=== PATIENT | male | born 1965 | race Hispanic/Latino ===

== ENCOUNTER → 2017-12-20 | Outpatient (CLI) | payer OTHER ==
[~2017-12-20] MED LIST: APIX5TAB PO; ASPI-1005 PO; ATOR40TA69 PO; FURO40TA7 PO; LOSA50TA2 PO; METO50 PO; POTA-9 PO; SPIR25TA PO
== END ==
LOC: OIH 14:16
PROVIDERS: ATTEND Internal Medicine
DX: I50.9 Heart failure, unspecified (principal)
CPT/HCPCS: 71046

== ENCOUNTER 2018-08-06 14:45 | Inpatient (IN) | payer OTHER ==
[~2018-08-06] VITALS: Ht 167.6 cm; Wt 108.9 kg
[2018-08-06 15:17] LABS: BASOPHILS % (AUTO) 1.2 % (0.0-5.0); EOSINOPHILS % (AUTO) 0.2 % (0.0-8.0); HEMATOCRIT 41.7 % (42-54); MEAN CORPUSCULAR HEMOGLOBIN 32.3 pg (27.0-33.0); MEAN CORPUSCULAR HGB CONC 34.3 g/dL (32.0-36.0); MEAN CORPUSCULAR VOLUME 94.2 fL (79-99); MONOCYTES % (AUTO) 8.6 % (3.0-13.0); NUCLEATED RED BLOOD CELLS 0.1 % (0.0-0.19); PLATELET COUNT (AUTO) 199 K/uL (130-400); RED BLOOD CELL COUNT(AUTO) 4.42 MIL/uL (4.50-6.20); RED CELL DISTRIBUTION WIDTH 14.7 % (11.0-15.5); WHITE BLOOD COUNT (AUTO) 9.3 K/uL (4.8-10.8)
[2018-08-06 15:30] LABS: CREATININE 1.3 mg/dL (0.5-1.5)
[2018-08-06 15:31] LABS: INR 1.24 (0.85-1.15); PARTIAL THROMBOPLASTIN TIME 23.5 SEC (26.3-35.5)
[2018-08-06 15:35] LABS: ALBUMIN 3.3 g/dL (3.5-5.0); BILIRUBIN,TOTAL 2.6 mg/dL (0.2-1.0); TOTAL PROTEIN, SERUM 8.1 g/dL (6.0-8.3)
[2018-08-06 15:39] LABS: B-TYPE NATRIURETIC PEPTIDE 1050 pg/mL (0-100)
[2018-08-06] MEDS ORDERED: ASPIRIN 325 MG TABLET ONE (16:14)
[2018-08-06] MEDS ORDERED: NITROGLYCERIN 1GM/1 INCH PACKET TD ONE (16:15)
[2018-08-06 16:17] LABS: APPEARANCE,URINE Cloudy (CLEAR); BILIRUBIN,URINE Small (NEGATIVE); COLOR,URINE Dark Yellow (YELLOW); GLUCOSE, URINE (UA) Negative (NEGATIVE); KETONES,URINE Negative (NEGATIVE); LEUKOCYTE ESTERASE ,URINE Trace (NEGATIVE); NITRATE,URINE Positive (NEGATIVE); OCCULT BLOOD,URINE Small (NEGATIVE); PROTEIN,URINE >=1000 (NEGATIVE)
[2018-08-06 16:23] LABS: BACTERIA,URINE Few /HPF (None Seen)
[2018-08-06 16:24] LABS: AMPHET/METH SCREEN,URINE NEGATIVE (NEGATIVE); BARBITURATE SCREEN, URINE NEGATIVE (NEGATIVE); BENZODIAZEPINES SCREEN,URINE NEGATIVE (NEGATIVE); CANNABINOID SCREEN,URINE NEGATIVE (NEGATIVE); COCAINE SCREEN,URINE NEGATIVE (NEGATIVE); HYALINE CASTS, URINE 26-50 /LPF (0-1 /LPF); OPIATE SCREEN,URINE NEGATIVE (NEGATIVE); PHENCYCLIDINE SCREEN,URINE NEGATIVE (NEGATIVE)
[2018-08-06] MEDS ORDERED: FUROSEMIDE 10 MG/ML 2ML VIAL ONE (16:37)
[2018-08-06] MEDS ORDERED: ACETAMINOPHEN 325 MG TAB PO PRN (17:00)
[2018-08-06] MEDS ORDERED: PHARMACY COMMUNICATION MISC SCH (17:00)
[2018-08-06] MEDS ORDERED: ONDANSETRON HCL 4 MG/2 ML VIAL IV PRN (17:00)
[2018-08-06] MEDS ORDERED: LEVOFLOXACIN 500 MG/D5W 100 ML 100 ML ONE (17:21)
[2018-08-06 17:50] LABS: HEMOGLOBIN A1C 5.9 % (4.0-6.0)
[2018-08-06] MEDS ORDERED: BUMETANIDE 0.25 MG/ML 10 ML 40 ML IV SCH (18:00)
[2018-08-06 18:01] LABS: TROPONIN I 0.11 ng/mL (0.00-0.06)
[2018-08-06 20:50] VITALS: BP 160/109
[2018-08-06] MEDS ORDERED: NITR0.4T50 SL (22:02)
[2018-08-06] MEDS ORDERED: ERGO400T7 PO (22:02)
[2018-08-06] MEDS ORDERED: NIFE60TA81 PO (22:02)
[2018-08-06] MEDS ORDERED: ESCI20TA36 PO (22:02)
[2018-08-06] MEDS ORDERED: PAMA50TA PO (22:03)
[2018-08-06 22:50] VITALS: BP 160/109
[2018-08-06 23:00] VITALS: BP 151/99
[2018-08-07] VITALS (7 sets, daily range): BP systolic 118–162; BP diastolic 60–116
[2018-08-07] MEDS: SPIRONOLACTONE 25 MG TAB PO SCH ×3 (00:16→22:23)
[2018-08-07] MEDS: METOPROLOL TARTRATE 50 MG TAB PO SCH ×2 (00:16→08:18)
[2018-08-07] MEDS: APIXABAN 5 MG TABLET PO SCH ×2 (00:17→08:18)
[2018-08-07] MEDS: POTASSIUM CHLORIDE 10 MEQ/TAB.SA PO SCH ×3 (00:17→22:24)
[2018-08-07 01:31] LABS: TROPONIN I 0.1 ng/mL (0.00-0.06)
[2018-08-07] MEDS ORDERED: CLONIDINE HCL 0.1 MG TABLET PO PRN (04:00)
[2018-08-07] MEDS ORDERED: CLONIDINE HCL 0.1 MG TABLET ONE (04:05)
[2018-08-07] MEDS: PANTOPRAZOLE SODIUM 40 MG TABLET.DR PO SCH (08:17)
[2018-08-07] MEDS ORDERED: LOSARTAN 50 MG TABLET PO SCH (09:00)
[2018-08-07] MEDS ORDERED: ENOXAPARIN SODIUM 40 MG/0.4 ML SYRINGE SQ SCH (09:00)
[2018-08-07 09:13] LABS: TROPONIN I 0.08 ng/mL (0.00-0.06)
[2018-08-07] MEDS ORDERED: NITROGLYCERIN 0.4 MG SL TAB SL PRN (09:30)
[2018-08-07 10:01] LABS: HEMATOCRIT 42.8 % (42-54); MEAN CORPUSCULAR HEMOGLOBIN 31.6 pg (27.0-33.0); MEAN CORPUSCULAR HGB CONC 33.4 g/dL (32.0-36.0); MEAN CORPUSCULAR VOLUME 94.7 fL (79-99); PLATELET COUNT (AUTO) 200 K/uL (130-400); RED BLOOD CELL COUNT(AUTO) 4.52 MIL/uL (4.50-6.20); RED CELL DISTRIBUTION WIDTH 14.7 % (11.0-15.5)
[2018-08-07 10:26] LABS: ALBUMIN 3.5 g/dL (3.5-5.0); BILIRUBIN,TOTAL 2.3 mg/dL (0.2-1.0); CREATININE 1.5 mg/dL (0.5-1.5); TOTAL PROTEIN, SERUM 8.5 g/dL (6.0-8.3)
[2018-08-07 10:35] LABS: B-TYPE NATRIURETIC PEPTIDE 711 pg/mL (0-100)
[2018-08-07] MEDS: LABETALOL HCL 200 MG TABLET PO SCH ×2 (11:05→22:24)
[2018-08-07] MEDS ORDERED: POTASSIUM CHLORIDE 20 MEQ ERTAB PO SCH ×2 (11:15→16:15)
[2018-08-07] MEDS ORDERED: WARFARIN SODIUM 1 MG TAB PO SCH (16:00)
[2018-08-07] MEDS: LEVOFLOXACIN 500 MG/D5W 100 ML 100 ML IV SCH (16:24)
[2018-08-07] MEDS: CITALOPRAM 20 MG TABLET PO SCH (22:24)
[2018-08-07] MEDS: ENOXAPARIN SODIUM 120 MG/0.8ML SQ SCH (22:25)
[2018-08-08 04:00] VITALS: BP 107/70
[2018-08-08 04:29] LABS: HEMATOCRIT 41.9 % (42-54); MEAN CORPUSCULAR HEMOGLOBIN 32.3 pg (27.0-33.0); MEAN CORPUSCULAR HGB CONC 33.8 g/dL (32.0-36.0); MEAN CORPUSCULAR VOLUME 95.4 fL (79-99); NUCLEATED RED BLOOD CELLS 0.1 % (0.0-0.19); PLATELET COUNT (AUTO) 239 K/uL (130-400); WHITE BLOOD COUNT (AUTO) 7.5 K/uL (4.8-10.8)
[2018-08-08 04:41] LABS: INR 1.28 (0.85-1.15); PROTHROMBIN TIME 13.4 SEC (9.6-11.6)
[2018-08-08 04:47] LABS: ALBUMIN 3.2 g/dL (3.5-5.0); BILIRUBIN,TOTAL 1.3 mg/dL (0.2-1.0); CREATININE 1.5 mg/dL (0.5-1.5); TOTAL PROTEIN, SERUM 8.1 g/dL (6.0-8.3)
[2018-08-08 04:50] LABS: B-TYPE NATRIURETIC PEPTIDE 136 pg/mL (0-100)
[2018-08-08 08:08] VITALS: BP 137/78
[2018-08-08] MEDS ORDERED: POTASSIUM CHLORIDE 10MEQ/100ML 100 ML IV PRN (08:15)
[2018-08-08] MEDS ORDERED: POTASSIUM CHLORIDE 20 MEQ ERTAB PO PRN (08:15)
[2018-08-08] MEDS ORDERED: LIDOCAINE HCL-MPF 1% 2ML VIAL IVP PRN (08:15)
[2018-08-08] MEDS ORDERED: NIFEDIPINE ER 30 MG TAB PO SCH (09:00)
[2018-08-08] MEDS: ENOXAPARIN SODIUM 120 MG/0.8ML SQ SCH ×2 (09:17→21:44)
[2018-08-08] MEDS: PANTOPRAZOLE SODIUM 40 MG TABLET.DR PO SCH (09:17)
[2018-08-08] MEDS: SPIRONOLACTONE 25 MG TAB PO SCH ×2 (09:17→21:44)
[2018-08-08] MEDS: LOSARTAN 100 MG TABLET PO SCH (09:17)
[2018-08-08] MEDS: POTASSIUM CHLORIDE 20 MEQ ERTAB PO SCH ×2 (09:18→21:43)
[2018-08-08] MEDS: FUROSEMIDE 40 MG TABLET PO SCH (09:18)
[2018-08-08] MEDS: LABETALOL HCL 200 MG TABLET PO SCH ×2 (09:18→21:44)
[2018-08-08] MEDS ORDERED: SPIRONOLACTONE 25 MG TAB PO SCH (11:00)
[2018-08-08] MEDS: POTASSIUM CHLORIDE 10% ELIXIR 20 MEQ/15 ML UDCUP PO PRN ×3 (11:12→18:45)
[2018-08-08 12:21] VITALS: BP 117/90
[2018-08-08 16:00] VITALS: BP 150/87
[2018-08-08] MEDS: WARFARIN SODIUM 2.5 MG TAB PO SCH (16:47)
[2018-08-08] MEDS: LEVOFLOXACIN 500 MG/D5W 100 ML 100 ML IV SCH (16:48)
[2018-08-08] MEDS: WARFARIN SODIUM 2 MG TAB PO SCH (16:48)
[2018-08-08 17:04] LABS: CREATININE 1.5 mg/dL (0.5-1.5); POTASSIUM 3.4 mmol/L (3.5-5.1)
[2018-08-08 20:00] VITALS: BP 136/93
[2018-08-08] MEDS: CITALOPRAM 20 MG TABLET PO SCH (21:44)
[2018-08-09] VITALS: BP 151/99
[2018-08-09 03:59] LABS: HEMATOCRIT 41.9 % (42-54); MEAN CORPUSCULAR HEMOGLOBIN 31.6 pg (27.0-33.0); MEAN CORPUSCULAR HGB CONC 33.1 g/dL (32.0-36.0); MEAN CORPUSCULAR VOLUME 95.3 fL (79-99); PLATELET COUNT (AUTO) 196 K/uL (130-400); RED BLOOD CELL COUNT(AUTO) 4.39 MIL/uL (4.50-6.20); RED CELL DISTRIBUTION WIDTH 14.6 % (11.0-15.5); WHITE BLOOD COUNT (AUTO) 5.6 K/uL (4.8-10.8)
[2018-08-09 04:00] VITALS: BP 135/97
[2018-08-09 04:09] LABS: INR 1.18 (0.85-1.15); PARTIAL THROMBOPLASTIN TIME 36.4 SEC (26.3-35.5); PROTHROMBIN TIME 12.4 SEC (9.6-11.6)
[2018-08-09 04:18] LABS: BILIRUBIN,TOTAL 1.1 mg/dL (0.2-1.0); CREATININE 1.3 mg/dL (0.5-1.5); MAGNESIUM 1.8 mg/dL (1.80-2.40); POTASSIUM 3.7 mmol/L (3.5-5.1); TOTAL PROTEIN, SERUM 7.5 g/dL (6.0-8.3)
[2018-08-09 08:22] VITALS: BP_SYST 144; BP_SYST 145; BP_DIAS 104; BP_DIAS 105
[2018-08-09] MEDS: PANTOPRAZOLE SODIUM 40 MG TABLET.DR PO SCH (09:03)
[2018-08-09] MEDS: ENOXAPARIN SODIUM 120 MG/0.8ML SQ SCH (09:03)
[2018-08-09] MEDS: LABETALOL HCL 200 MG TABLET PO SCH (09:03)
[2018-08-09] MEDS: FUROSEMIDE 40 MG TABLET PO SCH (09:03)
[2018-08-09] MEDS: SPIRONOLACTONE 25 MG TAB PO SCH (09:03)
[2018-08-09] MEDS: LOSARTAN 100 MG TABLET PO SCH (09:04)
[2018-08-09] MEDS: POTASSIUM CHLORIDE 20 MEQ ERTAB PO SCH (09:04)
[2018-08-09 10:09] LABS: HEMATOCRIT 44.2 % (42-54); MEAN CORPUSCULAR HEMOGLOBIN 31.1 pg (27.0-33.0); MEAN CORPUSCULAR HGB CONC 32.6 g/dL (32.0-36.0); MEAN CORPUSCULAR VOLUME 95.4 fL (79-99); NUCLEATED RED BLOOD CELLS 0.1 % (0.0-0.19); PLATELET COUNT (AUTO) 220 K/uL (130-400); RED BLOOD CELL COUNT(AUTO) 4.63 MIL/uL (4.50-6.20); RED CELL DISTRIBUTION WIDTH 14.6 % (11.0-15.5); WHITE BLOOD COUNT (AUTO) 5.5 K/uL (4.8-10.8)
[2018-08-09 10:33] VITALS: BP 156/94
[2018-08-09 10:54] LABS: B-TYPE NATRIURETIC PEPTIDE 315 pg/mL (0-100)
[2018-08-09 12:07] VITALS: BP 154/94
[2018-08-09] MEDS ORDERED: WARF2.5T47 PO (13:26)
[2018-08-09] MEDS ORDERED: LABE200T5 PO (13:26)
[2018-08-09] MEDS ORDERED: FURO40TA7 PO (13:26)
[2018-08-09] MEDS ORDERED: LOSA100T2 PO (13:26)
[2018-08-09] MEDS ORDERED: SPIR25TA PO (13:26)
[2018-08-09] MEDS ORDERED: WARF2TAB57 PO (13:26)
[2018-08-09] MEDS: WARFARIN SODIUM 2.5 MG TAB PO SCH (16:36)
[2018-08-09] MEDS: LEVOFLOXACIN 500 MG/D5W 100 ML 100 ML IV SCH (16:37)
[2018-08-09] MEDS: WARFARIN SODIUM 2 MG TAB PO SCH (16:37)
[2018-08-14] MEDS ORDERED: ERGOCALCIFEROL (VITAMIN D2) 50,000 UNIT CAPSULE PO SCH (06:30)
== END 2018-08-09 17:04 | disposition home or self-care (01) | DRG 292 ==
LOC: EDH 14:45 → 2DH 16:41 → EDHIP 17:40 → 2DH 19:38
PROVIDERS: ADMIT Internal Medicine; ATTEND Internal Medicine
DX: I11.0 Hypertensive heart disease with heart failure (principal); I24.9 Acute ischemic heart disease, unspecified; I48.92 Unspecified atrial flutter; I50.43 Acute on chronic combined systolic (congestive) and diastolic (congestive) heart failure; I42.0 Dilated cardiomyopathy; I25.10 Atherosclerotic heart disease of native coronary artery without angina pectoris; I48.91 Unspecified atrial fibrillation; E78.5 Hyperlipidemia, unspecified; E87.6 Hypokalemia; I16.0 Hypertensive urgency; I48.0 Paroxysmal atrial fibrillation; K75.81 Nonalcoholic steatohepatitis (NASH); Z79.01 Long term (current) use of anticoagulants; Z82.49 Family history of ischemic heart disease and other diseases of the circulatory system; Z83.3 Family history of diabetes mellitus; Z91.14 Patient's other noncompliance with medication regimen
CPT/HCPCS: 36415; 71045; 76705; 80048; 80053; 80305; 81001; 82550; 83036; 83735; 83874; 83880; 84484; 85025; 85027; 85610; 85730; 87088; 93005; 93306; 99291; J1650; J1940; J1956; J3490

== ENCOUNTER 2018-08-22 12:04 | Inpatient (IN) | payer SELFPAY ==
[~2018-08-22] VITALS: Ht 170.2 cm; Wt 116.3 kg
[~2018-08-22 12:04] MED LIST changes: -APIX5TAB PO; -ASPI-1005 PO; -ATOR40TA69 PO; +ERGO400T7 PO; +ESCI20TA36 PO; +LABE200T5 PO; +LOSA100T2 PO; -LOSA50TA2 PO; -METO50 PO; +NITR0.4T50 SL; -POTA-9 PO; +WARF2.5T47 PO; +WARF2TAB57 PO
[2018-08-22 12:36] LABS: BASOPHILS % (AUTO) 1.1 % (0.0-5.0); EOSINOPHILS % (AUTO) 0.6 % (0.0-8.0); HEMATOCRIT 41.2 % (42-54); LYMPHOCYTES % (AUTO) 13.4 % (21.0-51.0); MEAN CORPUSCULAR HEMOGLOBIN 32.2 pg (27.0-33.0); MEAN CORPUSCULAR HGB CONC 33.7 g/dL (32.0-36.0); MEAN CORPUSCULAR VOLUME 95.7 fL (79-99); NEUTROPHILS % (AUTO) 75.9 % (40.0-77.0); NUCLEATED RED BLOOD CELLS 0.1 % (0.0-0.19); PLATELET COUNT (AUTO) 231 K/uL (130-400); RED CELL DISTRIBUTION WIDTH 14.4 % (11.0-15.5); WHITE BLOOD COUNT (AUTO) 7.8 K/uL (4.8-10.8)
[2018-08-22 12:51] LABS: CREATININE 1.2 mg/dL (0.5-1.5); POTASSIUM 4.1 mmol/L (3.5-5.1)
[2018-08-22 12:56] LABS: ALBUMIN 3.1 g/dL (3.5-5.0); BILIRUBIN,TOTAL 1.4 mg/dL (0.2-1.0); TOTAL PROTEIN, SERUM 7.8 g/dL (6.0-8.3)
[2018-08-22 13:30] LABS: B-TYPE NATRIURETIC PEPTIDE 1530 pg/mL (0-100)
[2018-08-22] MEDS ORDERED: ENOXAPARIN SODIUM 100 MG/1 ML SQ ONE (13:35)
[2018-08-22] MEDS ORDERED: FUROSEMIDE 10 MG/ML 2ML VIAL ONE (13:35)
[2018-08-22] MEDS ORDERED: ASPIRIN 325 MG TABLET ONE (13:35)
[2018-08-22] MEDS ORDERED: WARFARIN SODIUM 2.5 MG TAB PO SCH (16:00)
[2018-08-22] MEDS ORDERED: NITROGLYCERIN 0.4 MG SL TAB SL PRN (16:00)
[2018-08-22] MEDS ORDERED: WARFARIN SODIUM 2 MG TAB PO SCH (16:00)
[2018-08-22 16:05] LABS: INR 1.15 (0.85-1.15); PARTIAL THROMBOPLASTIN TIME 25.9 SEC (26.3-35.5)
[2018-08-22 16:10] LABS: CHOLESTEROL 138 mg/dL (<200); HDL CHOLESTEROL 24 mg/dL (29-71); LDL DIRECT 114 mg/dL (0-99); TRIGLYCERIDES 103 mg/dL (30-200)
[2018-08-22] MEDS ORDERED: LABETALOL HCL 5 MG/ML 20ML VIAL IV ONE (16:57)
[2018-08-22 17:50] VITALS: BP 149/108
[2018-08-22] MEDS ORDERED: AMLO10TA4 PO (18:35)
[2018-08-22] MEDS ORDERED: METO100T14 PO (18:37)
[2018-08-22] MEDS ORDERED: SIMV40TA5 PO (18:39)
[2018-08-22] MEDS ORDERED: LOSA100T20 PO (18:42)
[2018-08-22] MEDS ORDERED: KETOROLAC TROMETHAMINE 15MG/ML IV PRN (18:45)
[2018-08-22 19:20] VITALS: BP 156/100
[2018-08-22] MEDS: FUROSEMIDE 10 MG/ML 2ML VIAL IV SCH (20:34)
[2018-08-22] MEDS: CITALOPRAM 20 MG TABLET PO SCH (20:36)
[2018-08-22] MEDS: SPIRONOLACTONE 25 MG TAB PO SCH (20:36)
[2018-08-22] MEDS: METOPROLOL TARTRATE 50 MG TAB PO SCH (20:36)
[2018-08-22] MEDS: WARFARIN SODIUM 2 MG TAB PO SCH (20:36)
[2018-08-22] MEDS ORDERED: LABETALOL HCL 200 MG TABLET PO SCH (21:00)
[2018-08-22 23:20] VITALS: BP 152/62
[2018-08-22] MEDS: ALPRAZOLAM 0.25 MG TABLET PO PRN (23:51)
[2018-08-23] MEDS: IPRATROPIUM/ALBUTEROL SULFATE 3 ML SOLUTION IH PRN ×2 (00:43→20:06)
[2018-08-23] MEDS ORDERED: LORAZEPAM 2 MG/ML 1 ML VIAL IVP ONE (02:15)
[2018-08-23] MEDS ORDERED: LORAZEPAM 2 MG/ML 1 ML VIAL ONE (02:20)
[2018-08-23 03:40] VITALS: BP 162/119
[2018-08-23 04:27] LABS: BASOPHILS % (AUTO) 1.2 % (0.0-5.0); EOSINOPHILS % (AUTO) 1.2 % (0.0-8.0); HEMATOCRIT 40.5 % (42-54); LYMPHOCYTES % (AUTO) 17.7 % (21.0-51.0); MEAN CORPUSCULAR HEMOGLOBIN 31.7 pg (27.0-33.0); MEAN CORPUSCULAR HGB CONC 33.6 g/dL (32.0-36.0); MEAN CORPUSCULAR VOLUME 94.3 fL (79-99); MONOCYTES % (AUTO) 9.6 % (3.0-13.0); NEUTROPHILS % (AUTO) 70.3 % (40.0-77.0); PLATELET COUNT (AUTO) 189 K/uL (130-400); RED BLOOD CELL COUNT(AUTO) 4.29 MIL/uL (4.50-6.20); RED CELL DISTRIBUTION WIDTH 14.4 % (11.0-15.5); WHITE BLOOD COUNT (AUTO) 8.9 K/uL (4.8-10.8)
[2018-08-23 04:39] LABS: CREATININE 1.3 mg/dL (0.5-1.5); INR 1.22 (0.85-1.15); PARTIAL THROMBOPLASTIN TIME 29.9 SEC (26.3-35.5); PROTHROMBIN TIME 12.8 SEC (9.6-11.6)
[2018-08-23] MEDS ORDERED: POTASSIUM CHLORIDE 10% ELIXIR 20 MEQ/15 ML UDCUP PO PRN ×3 (05:15→14:00)
[2018-08-23] MEDS ORDERED: POTASSIUM CHLORIDE 20MEQ/100ML 100 ML IV PRN ×2 (05:15→14:00)
[2018-08-23] MEDS ORDERED: POTASSIUM CHLORIDE 20 MEQ ERTAB PO PRN (05:15)
[2018-08-23] MEDS ORDERED: LIDOCAINE HCL-MPF 1% 2ML VIAL IVP PRN ×3 (05:15→14:00)
[2018-08-23] MEDS: FUROSEMIDE 10 MG/ML 2ML VIAL IV SCH (05:32)
[2018-08-23] MEDS ORDERED: POTASSIUM CHLORIDE 10MEQ/100ML 100 ML IV PRN (07:15)
[2018-08-23 07:44] VITALS: BP 151/129
[2018-08-23] MEDS: AMLODIPINE BESYLATE 5 MG TAB PO SCH (08:00)
[2018-08-23] MEDS: ASPIRIN 81MG TAB.CHEW PO SCH (08:01)
[2018-08-23] MEDS: METOPROLOL TARTRATE 50 MG TAB PO SCH ×2 (08:01→20:43)
[2018-08-23] MEDS: PANTOPRAZOLE SODIUM 40 MG TABLET.DR PO SCH (08:01)
[2018-08-23] MEDS: ALPRAZOLAM 0.25 MG TABLET PO PRN ×2 (08:01→23:16)
[2018-08-23] MEDS: ENOXAPARIN SODIUM 30 MG/0.3 ML SQ SCH (08:01)
[2018-08-23] MEDS: SPIRONOLACTONE 25 MG TAB PO SCH ×2 (08:01→20:43)
[2018-08-23] MEDS: LOSARTAN 100 MG TABLET PO SCH (08:01)
[2018-08-23] MEDS ORDERED: FUROSEMIDE 40 MG TABLET PO SCH (09:00)
[2018-08-23] MEDS: POTASSIUM CHLORIDE 20 MEQ ERTAB PO PRN ×3 (11:03→15:52)
[2018-08-23 11:19] VITALS: BP 152/89
[2018-08-23] MEDS ORDERED: HYDRALAZINE HCL 25 MG TABLET PO SCH (14:00)
[2018-08-23] MEDS: WARFARIN SODIUM 2 MG TAB PO SCH (15:50)
[2018-08-23] MEDS: FUROSEMIDE 40 MG TABLET PO SCH (15:51)
[2018-08-23] MEDS ORDERED: FUROSEMIDE 10 MG/ML 2ML VIAL IV ONE (16:00)
[2018-08-23 16:28] VITALS: BP 153/74
[2018-08-23] MEDS: HYDRALAZINE HCL 25 MG TABLET PO SCH (20:43)
[2018-08-23 20:44] VITALS: BP 154/78
[2018-08-23] MEDS: CITALOPRAM 20 MG TABLET PO SCH (20:44)
[2018-08-23] MEDS: POTASSIUM CHLORIDE 20 MEQ ERTAB PO SCH (20:44)
[2018-08-24] VITALS: BP 136/92
[2018-08-24 04:08] VITALS: BP 140/107
[2018-08-24 04:38] LABS: CREATININE 1.5 mg/dL (0.5-1.5); POTASSIUM 3.7 mmol/L (3.5-5.1)
[2018-08-24] MEDS: IPRATROPIUM/ALBUTEROL SULFATE 3 ML SOLUTION IH PRN (06:38)
[2018-08-24 08:00] VITALS: BP 157/114
[2018-08-24] MEDS ORDERED: HYDRALAZINE HCL 20 MG/ML VIAL IV PRN (08:00)
[2018-08-24] MEDS ORDERED: CLONIDINE HCL 0.1 MG TABLET PO PRN (08:00)
[2018-08-24] MEDS: ASPIRIN 81MG TAB.CHEW PO SCH (08:45)
[2018-08-24] MEDS: FUROSEMIDE 40 MG TABLET PO SCH ×2 (08:45→18:41)
[2018-08-24] MEDS: POTASSIUM CHLORIDE 20 MEQ ERTAB PO SCH ×2 (08:45→21:17)
[2018-08-24] MEDS: LOSARTAN 100 MG TABLET PO SCH (08:46)
[2018-08-24] MEDS: PANTOPRAZOLE SODIUM 40 MG TABLET.DR PO SCH (08:46)
[2018-08-24] MEDS: AMLODIPINE BESYLATE 5 MG TAB PO SCH (08:47)
[2018-08-24] MEDS: METOPROLOL TARTRATE 50 MG TAB PO SCH (08:48)
[2018-08-24] MEDS: ENOXAPARIN SODIUM 30 MG/0.3 ML SQ SCH (08:50)
[2018-08-24] MEDS: HYDRALAZINE HCL 25 MG TABLET PO SCH (08:52)
[2018-08-24] MEDS: SPIRONOLACTONE 25 MG TAB PO SCH ×2 (08:52→10:25)
[2018-08-24] MEDS ORDERED: WARFARIN SODIUM 2 MG TAB PO SCH (09:00)
[2018-08-24] MEDS: CARVEDILOL 12.5 MG TABLET PO SCH ×2 (10:26→21:17)
[2018-08-24] MEDS: POTASSIUM CHLORIDE 20 MEQ ERTAB PO PRN ×2 (10:28→18:41)
[2018-08-24 12:00] VITALS: BP 150/104
[2018-08-24 12:49] LABS: INR 1.42 (0.85-1.15); PROTHROMBIN TIME 14.8 SEC (9.6-11.6)
[2018-08-24 16:00] VITALS: BP 116/93
[2018-08-24] MEDS: WARFARIN SODIUM 2 MG TAB PO SCH (18:41)
[2018-08-24 19:40] VITALS: BP 114/83
[2018-08-24] MEDS: CITALOPRAM 20 MG TABLET PO SCH (21:16)
[2018-08-24] MEDS: ALPRAZOLAM 0.25 MG TABLET PO PRN (21:17)
[2018-08-25] VITALS (7 sets, daily range): BP systolic 120–143; BP diastolic 67–97
[2018-08-25 04:03] LABS: HEMATOCRIT 37.8 % (42-54); LYMPHOCYTES % (AUTO) 20.1 % (21.0-51.0); MEAN CORPUSCULAR HEMOGLOBIN 31.7 pg (27.0-33.0); MEAN CORPUSCULAR HGB CONC 33.3 g/dL (32.0-36.0); MEAN CORPUSCULAR VOLUME 95.4 fL (79-99); MONOCYTES % (AUTO) 8.7 % (3.0-13.0); NEUTROPHILS % (AUTO) 68.2 % (40.0-77.0); NUCLEATED RED BLOOD CELLS 0.1 % (0.0-0.19); PLATELET COUNT (AUTO) 178 K/uL (130-400); RED BLOOD CELL COUNT(AUTO) 3.96 MIL/uL (4.50-6.20); RED CELL DISTRIBUTION WIDTH 14.5 % (11.0-15.5); WHITE BLOOD COUNT (AUTO) 7.2 K/uL (4.8-10.8)
[2018-08-25 04:18] LABS: CREATININE 1.3 mg/dL (0.5-1.5); POTASSIUM 3.7 mmol/L (3.5-5.1)
[2018-08-25 05:15] LABS: INR 1.61 (0.85-1.15); PROTHROMBIN TIME 16.7 SEC (9.6-11.6)
[2018-08-25] MEDS: ALPRAZOLAM 0.25 MG TABLET PO PRN ×2 (09:14→21:42)
[2018-08-25] MEDS: AMLODIPINE BESYLATE 5 MG TAB PO SCH (09:15)
[2018-08-25] MEDS: SPIRONOLACTONE 25 MG TAB PO SCH (09:15)
[2018-08-25] MEDS: POTASSIUM CHLORIDE 20 MEQ ERTAB PO SCH ×2 (09:15→21:39)
[2018-08-25] MEDS: PANTOPRAZOLE SODIUM 40 MG TABLET.DR PO SCH (09:16)
[2018-08-25] MEDS: CARVEDILOL 12.5 MG TABLET PO SCH ×2 (09:16→21:39)
[2018-08-25] MEDS: ASPIRIN 81MG TAB.CHEW PO SCH (09:16)
[2018-08-25] MEDS: FUROSEMIDE 40 MG TABLET PO SCH ×2 (09:16→17:13)
[2018-08-25] MEDS: LOSARTAN 100 MG TABLET PO SCH (09:17)
[2018-08-25] MEDS: ENOXAPARIN SODIUM 30 MG/0.3 ML SQ SCH (09:17)
[2018-08-25] MEDS: WARFARIN SODIUM 2 MG TAB PO SCH (17:13)
[2018-08-25] MEDS: CITALOPRAM 20 MG TABLET PO SCH (21:38)
[2018-08-26 04:42] LABS: EOSINOPHILS % (AUTO) 1.7 % (0.0-8.0); HEMATOCRIT 37.2 % (42-54); LYMPHOCYTES % (AUTO) 17.3 % (21.0-51.0); MEAN CORPUSCULAR HEMOGLOBIN 32.3 pg (27.0-33.0); MEAN CORPUSCULAR HGB CONC 33.7 g/dL (32.0-36.0); MEAN CORPUSCULAR VOLUME 95.8 fL (79-99); PLATELET COUNT (AUTO) 193 K/uL (130-400); RED BLOOD CELL COUNT(AUTO) 3.88 MIL/uL (4.50-6.20); RED CELL DISTRIBUTION WIDTH 14.4 % (11.0-15.5); WHITE BLOOD COUNT (AUTO) 6.7 K/uL (4.8-10.8)
[2018-08-26 04:47] VITALS: BP 118/67
[2018-08-26 04:52] LABS: INR 1.69 (0.85-1.15); PARTIAL THROMBOPLASTIN TIME 31.7 SEC (26.3-35.5); PROTHROMBIN TIME 17.6 SEC (9.6-11.6)
[2018-08-26 05:02] LABS: ALBUMIN 2.9 g/dL (3.5-5.0); BILIRUBIN,TOTAL 0.8 mg/dL (0.2-1.0); CREATININE 1.2 mg/dL (0.5-1.5); POTASSIUM 3.9 mmol/L (3.5-5.1); TOTAL PROTEIN, SERUM 7.3 g/dL (6.0-8.3)
[2018-08-26 07:55] VITALS: BP 132/77
[2018-08-26] MEDS: FUROSEMIDE 40 MG TABLET PO SCH ×2 (08:41→17:07)
[2018-08-26] MEDS: SPIRONOLACTONE 25 MG TAB PO SCH (08:41)
[2018-08-26] MEDS: LOSARTAN 100 MG TABLET PO SCH (08:41)
[2018-08-26] MEDS: PANTOPRAZOLE SODIUM 40 MG TABLET.DR PO SCH (08:41)
[2018-08-26] MEDS: ASPIRIN 81MG TAB.CHEW PO SCH (08:42)
[2018-08-26] MEDS: CARVEDILOL 12.5 MG TABLET PO SCH (08:42)
[2018-08-26] MEDS: POTASSIUM CHLORIDE 20 MEQ ERTAB PO SCH (08:42)
[2018-08-26] MEDS: AMLODIPINE BESYLATE 5 MG TAB PO SCH (08:42)
[2018-08-26] MEDS: ENOXAPARIN SODIUM 30 MG/0.3 ML SQ SCH (08:43)
[2018-08-26 12:04] VITALS: BP 151/83
[2018-08-26] MEDS ORDERED: SPIR25TA PO (14:18)
[2018-08-26] MEDS ORDERED: WARF2TAB57 PO (14:18)
[2018-08-26 16:45] VITALS: BP 125/77
[2018-08-26] MEDS: WARFARIN SODIUM 2 MG TAB PO SCH (17:06)
[2018-08-29] MEDS ORDERED: ERGOCALCIFEROL PO SCH (06:30)
== END 2018-08-26 18:47 | disposition home or self-care (01) | DRG 292 ==
LOC: EDH 12:04 → EDHIP 12:05 → 4BH 16:49
PROVIDERS: ADMIT Hospitalist; ATTEND Hospitalist
PROC: 3E0234Z Introduction of Serum, Toxoid and Vaccine into Muscle, Percutaneous Approach (ICD-10-PCS; principal; 2018-08-24)
DX: I11.0 Hypertensive heart disease with heart failure (principal); Z68.41 Body mass index [BMI] 40.0-44.9, adult; I50.43 Acute on chronic combined systolic (congestive) and diastolic (congestive) heart failure; I42.0 Dilated cardiomyopathy; I48.2 Chronic atrial fibrillation; F32.9 Major depressive disorder, single episode, unspecified; F41.9 Anxiety disorder, unspecified; E66.9 Obesity, unspecified; E78.5 Hyperlipidemia, unspecified; E87.6 Hypokalemia; R79.1 Abnormal coagulation profile; Z16.24 Resistance to multiple antibiotics; Z79.01 Long term (current) use of anticoagulants; Z79.82 Long term (current) use of aspirin; Z79.899 Other long term (current) drug therapy; Z87.891 Personal history of nicotine dependence; Z91.14 Patient's other noncompliance with medication regimen; Z91.19 Patient's noncompliance with other medical treatment and regimen; Z23 Encounter for immunization; Z82.49 Family history of ischemic heart disease and other diseases of the circulatory system; Z83.3 Family history of diabetes mellitus
CPT/HCPCS: 36415; 71045; 80048; 80053; 80061; 82550; 83880; 84484; 85025; 85610; 85730; 93005; 94640; 94664; 94760; 97039; G0008; J1650; J1885; J1940; J2060; J3490; Q2038

== ENCOUNTER 2018-10-05 16:27 | Inpatient (IN) | payer SELFPAY ==
[~2018-10-05] VITALS: Ht 160 cm; Wt 103.7 kg
[~2018-10-05 16:27] MED LIST changes: +AMLO10TA4 PO; +EPINEPHRINE 0.1 MG/ML 10 ML SYG IVP ONE; -LABE200T5 PO; -WARF2.5T47 PO
[2018-10-05 16:55] LABS: BASOPHILS % (AUTO) 3.1 % (0.0-5.0); EOSINOPHILS % (AUTO) 0.6 % (0.0-8.0); HEMATOCRIT 41.2 % (42-54); LYMPHOCYTES % (AUTO) 11.3 % (21.0-51.0); MEAN CORPUSCULAR HEMOGLOBIN 30.5 pg (27.0-33.0); MEAN CORPUSCULAR HGB CONC 32.9 g/dL (32.0-36.0); MEAN CORPUSCULAR VOLUME 92.7 fL (79-99); MONOCYTES % (AUTO) 9.2 % (3.0-13.0); NEUTROPHILS % (AUTO) 75.8 % (40.0-77.0); NUCLEATED RED BLOOD CELLS 0.1 % (0.0-0.19); PLATELET COUNT (AUTO) 244 K/uL (130-400); RED BLOOD CELL COUNT(AUTO) 4.44 MIL/uL (4.50-6.20); RED CELL DISTRIBUTION WIDTH 15.6 % (11.0-15.5)
[2018-10-05 17:14] LABS: B-TYPE NATRIURETIC PEPTIDE 945 pg/mL (0-100)
[2018-10-05] MEDS ORDERED: ASPIRIN 325 MG TABLET ONE (17:34)
[2018-10-05] MEDS ORDERED: DILTIAZEM HCL 5 MG/ML 5 ML VIAL IVP ONE (17:35)
[2018-10-05] MEDS ORDERED: SODIUM CHLORIDE 0.9% 100 ML IV ONE (17:38)
[2018-10-05] MEDS ORDERED: DILTIAZEM HCL 5 MG/ML 10 ML VIAL IV ONE ×2 (17:40→17:43)
[2018-10-05 17:46] LABS: CREATININE 1.1 mg/dL (0.5-1.5); POTASSIUM 3.1 mmol/L (3.5-5.1)
[2018-10-05 17:51] LABS: ALBUMIN 3.1 g/dL (3.5-5.0); BILIRUBIN,TOTAL 2.5 mg/dL (0.2-1.0); TOTAL PROTEIN, SERUM 8.1 g/dL (6.0-8.3)
[2018-10-05] MEDS ORDERED: ONDANSETRON HCL 4 MG/2 ML VIAL IV PRN (18:30)
[2018-10-05] MEDS ORDERED: ACETAMINOPHEN 325 MG TAB PO PRN (18:30)
[2018-10-05] MEDS: FUROSEMIDE 10 MG/ML 4ML VIAL IV SCH (18:30)
[2018-10-05] MEDS ORDERED: FUROSEMIDE 10 MG/ML 2ML VIAL ONE (18:43)
[2018-10-05] MEDS ORDERED: POTASSIUM BICARB/CIT AC 25 MEQ TABLET.EFF ONE (18:43)
[2018-10-05] MEDS ORDERED: ENOXAPARIN SODIUM 100 MG/1 ML SQ ONE (18:43)
[2018-10-05] MEDS ORDERED: DILTIAZEM 125MG+100 ML NS 125 ML IV SCH (18:45)
[2018-10-05] MEDS ORDERED: LABETALOL 20 MG/4 ML DISP.SYRIN IV PRN (19:45)
[2018-10-05 19:50] LABS: INR 1.49 (0.85-1.15); PARTIAL THROMBOPLASTIN TIME 28.7 SEC (26.3-35.5); PROTHROMBIN TIME 15.5 SEC (9.6-11.6)
[2018-10-05 21:06] LABS: TROPONIN I 0.13 ng/mL (0.00-0.06)
[2018-10-05] MEDS: IPRATROPIUM 0.5 MG/2.5 ML INH IH SCH (22:25)
[2018-10-05 22:34] VITALS: BP 151/96
[2018-10-05 23:59] VITALS: BP 126/86
[2018-10-06] VITALS (31 sets, daily range): BP systolic 61–138; BP diastolic 20–93
[2018-10-06] MEDS ORDERED: NIFE60TA81 PO (00:58)
[2018-10-06] MEDS ORDERED: METO100T14 PO (00:58)
[2018-10-06] MEDS ORDERED: PAMA50TA PO (00:58)
[2018-10-06] MEDS ORDERED: CETI10TA57 PO (00:58)
[2018-10-06] MEDS ORDERED: SIMV40TA5 PO (00:58)
[2018-10-06] MEDS: IPRATROPIUM 0.5 MG/2.5 ML INH IH SCH ×6 (01:11→22:00)
[2018-10-06] MEDS ORDERED: NITROGLYCERIN 0.4 MG SL TAB SL PRN (03:45)
[2018-10-06] MEDS: MAGNESIUM 2GM PREMIX 50ML 50 ML IV PRN (04:00)
[2018-10-06] MEDS: BENZONATATE 100 MG CAPSULE PO PRN ×2 (04:41→08:25)
[2018-10-06 05:40] LABS: EOSINOPHILS % (AUTO) 0.3 % (0.0-8.0); HEMATOCRIT 39.6 % (42-54); LYMPHOCYTES % (AUTO) 14.5 % (21.0-51.0); MEAN CORPUSCULAR HEMOGLOBIN 30.3 pg (27.0-33.0); MEAN CORPUSCULAR HGB CONC 32.9 g/dL (32.0-36.0); MONOCYTES % (AUTO) 13.7 % (3.0-13.0); NEUTROPHILS % (AUTO) 70.5 % (40.0-77.0); PLATELET COUNT (AUTO) 262 K/uL (130-400); RED BLOOD CELL COUNT(AUTO) 4.31 MIL/uL (4.50-6.20); RED CELL DISTRIBUTION WIDTH 15.3 % (11.0-15.5); WHITE BLOOD COUNT (AUTO) 8.6 K/uL (4.8-10.8)
[2018-10-06 06:04] LABS: ALBUMIN 3.1 g/dL (3.5-5.0); BILIRUBIN,TOTAL 3.2 mg/dL (0.2-1.0); CREATININE 1.2 mg/dL (0.5-1.5); MAGNESIUM 2.4 mg/dL (1.80-2.40); POTASSIUM 3.5 mmol/L (3.5-5.1); TOTAL PROTEIN, SERUM 7.9 g/dL (6.0-8.3); TROPONIN I 0.11 ng/mL (0.00-0.06)
[2018-10-06 06:09] LABS: B-TYPE NATRIURETIC PEPTIDE 387 pg/mL (0-100)
[2018-10-06] MEDS: POTASSIUM CHLORIDE 20 MEQ ERTAB PO PRN (06:24)
[2018-10-06] MEDS ORDERED: ERGOCALCIFEROL PO SCH (06:30)
[2018-10-06] MEDS: FUROSEMIDE 10 MG/ML 4ML VIAL IV SCH ×2 (06:43→17:18)
[2018-10-06] MEDS ORDERED: METOPROLOL TARTRATE 1 MG/ML 5ML VIAL IV PRN (07:00)
[2018-10-06] MEDS: LORATADINE 10 MG TABLET PO SCH (08:22)
[2018-10-06] MEDS: PANTOPRAZOLE SODIUM 40 MG TABLET.DR PO SCH (08:23)
[2018-10-06] MEDS: POTASSIUM CHLORIDE 10% ELIXIR 20 MEQ/15 ML UDCUP PO PRN (08:27)
[2018-10-06] MEDS ORDERED: LOSARTAN 100 MG TABLET PO SCH (09:00)
[2018-10-06] MEDS ORDERED: METOPROLOL TARTRATE 50 MG TAB PO SCH (09:00)
[2018-10-06] MEDS: NIFEDIPINE ER 30 MG TAB PO SCH (09:00)
[2018-10-06] MEDS ORDERED: AMLODIPINE BESYLATE 5 MG TAB PO SCH (09:00)
[2018-10-06 09:28] LABS: INR 1.67 (0.85-1.15); PARTIAL THROMBOPLASTIN TIME 30.6 SEC (26.3-35.5); PROTHROMBIN TIME 17.4 SEC (9.6-11.6)
[2018-10-06 12:11] LABS: ABG BASE EXCESS -9.7 mmol/L (-2.0-3.0); ABG HCO3 14.7 mmol/L (21.0-28.0); ABG OXYGEN SATURATION 98.6 % (95.0-99.0); ABG PCO2 29 mmHg (35-48)
[2018-10-06] MEDS ORDERED: COMPOUND IV MISC 1 EACH IVSOLN MISC PRN (13:45)
[2018-10-06] MEDS ORDERED: PROPOFOL 1000 MG/100 ML 100 ML IV ONE (13:47)
[2018-10-06] MEDS: LEVETIRACETAM 1,000 MG in SODIUM CHLORIDE 0.9% 100 ML IV SCH ×2 (13:53→22:23)
[2018-10-06] MEDS ORDERED: WARFARIN SODIUM 5 MG TAB PO SCH (17:00)
[2018-10-06] MEDS ORDERED: CHLORDIAZEPOXIDE HCL 25 MG CAP MODERATE PO PRN ×2 (20:15)
[2018-10-06] MEDS ORDERED: CHLORDIAZEPOXIDE HCL 25 MG CAP SEVERE PO PRN ×2 (20:15)
[2018-10-06] MEDS ORDERED: METOPROLOL TARTRATE 25 MG TAB PO SCH (21:00)
[2018-10-06] MEDS: FOLIC ACID 1 MG TABLET PO SCH (21:01)
[2018-10-06] MEDS: THIAMINE HCL 100 MG TABLET PO SCH (21:01)
[2018-10-06] MEDS: ATORVASTATIN CALCIUM 20 MG TABLET PO SCH (21:01)
[2018-10-06] MEDS: MULTIVITAMIN TABLET PO SCH (21:02)
[2018-10-06] MEDS: CITALOPRAM 20 MG TABLET PO SCH (21:02)
[2018-10-06] MEDS ORDERED: FUROSEMIDE 10 MG/ML 4ML VIAL IV STA (22:14)
[2018-10-07] VITALS (28 sets, daily range): BP systolic 62–143; BP diastolic 36–90
[2018-10-07] MEDS: IPRATROPIUM 0.5 MG/2.5 ML INH IH SCH ×2 (02:10→07:14)
[2018-10-07 03:42] LABS: BASOPHILS % (AUTO) 0.2 % (0.0-5.0); HEMATOCRIT 39.1 % (42-54); LYMPHOCYTES % (AUTO) 6.9 % (21.0-51.0); MEAN CORPUSCULAR HEMOGLOBIN 29.4 pg (27.0-33.0); MEAN CORPUSCULAR HGB CONC 31.7 g/dL (32.0-36.0); MEAN CORPUSCULAR VOLUME 92.9 fL (79-99); MONOCYTES % (AUTO) 7.6 % (3.0-13.0); NEUTROPHILS % (AUTO) 85.3 % (40.0-77.0); NUCLEATED RED BLOOD CELLS 0.1 % (0.0-0.19); PLATELET COUNT (AUTO) 205 K/uL (130-400); RED BLOOD CELL COUNT(AUTO) 4.21 MIL/uL (4.50-6.20); RED CELL DISTRIBUTION WIDTH 15.8 % (11.0-15.5); WHITE BLOOD COUNT (AUTO) 13.9 K/uL (4.8-10.8)
[2018-10-07 03:52] LABS: CREATININE 2.9 mg/dL (0.5-1.5); POTASSIUM 4.4 mmol/L (3.5-5.1)
[2018-10-07 07:57] LABS: INR 2.29 (0.85-1.15); PROTHROMBIN TIME 23.7 SEC (9.6-11.6)
[2018-10-07 08:07] LABS: APPEARANCE,URINE Turbid (CLEAR); BILIRUBIN,URINE Small (NEGATIVE); COLOR,URINE Dark Yellow (YELLOW); GLUCOSE, URINE (UA) Negative (NEGATIVE); KETONES,URINE Negative (NEGATIVE); LEUKOCYTE ESTERASE ,URINE Negative (NEGATIVE); NITRATE,URINE Negative (NEGATIVE); OCCULT BLOOD,URINE Moderate (NEGATIVE); PROTEIN,URINE >=1000 (NEGATIVE)
[2018-10-07 08:24] LABS: BACTERIA,URINE Few /HPF (None Seen); RBC,URINE 0-1 /HPF (0-1); SQUAMOUS EPITHELIAL CELL,UR Few /HPF (0-2)
[2018-10-07 08:28] LABS: HYALINE CASTS, URINE 0-1 /LPF (0-1 /LPF)
[2018-10-07] MEDS: PANTOPRAZOLE SODIUM 40 MG TABLET.DR PO SCH (08:29)
[2018-10-07] MEDS: METOPROLOL TARTRATE 25 MG TAB PO SCH ×2 (08:29→21:42)
[2018-10-07] MEDS: FOLIC ACID 1 MG TABLET PO SCH (08:29)
[2018-10-07] MEDS: THIAMINE HCL 100 MG TABLET PO SCH (08:29)
[2018-10-07] MEDS: MULTIVITAMIN TABLET PO SCH (08:29)
[2018-10-07] MEDS: LORATADINE 10 MG TABLET PO SCH (08:29)
[2018-10-07] MEDS: NIFEDIPINE ER 30 MG TAB PO SCH (08:53)
[2018-10-07] MEDS: DOBUTAMINE 250MG/D5 250ML 250 ML IV SCH ×2 (08:57→16:22)
[2018-10-07] MEDS: LEVETIRACETAM 1,000 MG in SODIUM CHLORIDE 0.9% 100 ML IV SCH (09:03)
[2018-10-07] MEDS: DIAZEPAM 5 MG TABLET PO SCH ×2 (09:45→16:23)
[2018-10-07] MEDS ORDERED: PHARMACY COMMUNICATION MISC SCH (10:15)
[2018-10-07] MEDS ORDERED: WARFARIN SODIUM 2.5 MG TAB PO SCH (16:00)
[2018-10-07] MEDS: [UNRECOGNIZED DRUG - OTHER] IV SCH (21:42)
[2018-10-07] MEDS: LEVETIRACETAM IV SCH (21:42)
[2018-10-07] MEDS: ATORVASTATIN CALCIUM 20 MG TABLET PO SCH (21:43)
[2018-10-07] MEDS: CITALOPRAM 20 MG TABLET PO SCH (21:43)
[2018-10-08] VITALS (24 sets, daily range): BP systolic 95–149; BP diastolic 48–96
[2018-10-08] MEDS: DOBUTAMINE 250MG/D5 250ML 250 ML IV SCH ×3 (00:14→23:09)
[2018-10-08] MEDS: DIAZEPAM 5 MG TABLET PO SCH ×2 (01:45→08:35)
[2018-10-08 04:11] LABS: HEMATOCRIT 36.9 % (42-54); MEAN CORPUSCULAR HEMOGLOBIN 30.2 pg (27.0-33.0); MEAN CORPUSCULAR HGB CONC 32.8 g/dL (32.0-36.0); MEAN CORPUSCULAR VOLUME 91.8 fL (79-99); PLATELET COUNT (AUTO) 227 K/uL (130-400); RED BLOOD CELL COUNT(AUTO) 4.02 MIL/uL (4.50-6.20); RED CELL DISTRIBUTION WIDTH 15.9 % (11.0-15.5); WHITE BLOOD COUNT (AUTO) 13.1 K/uL (4.8-10.8)
[2018-10-08 04:16] LABS: INR 1.99 (0.85-1.15); PROTHROMBIN TIME 20.6 SEC (9.6-11.6)
[2018-10-08 04:23] LABS: ABG BASE EXCESS -1.2 mmol/L (-2.0-3.0); ABG HCO3 22.9 mmol/L (21.0-28.0); ABG OXYGEN SATURATION 97.7 % (95.0-99.0); ABG PCO2 37 mmHg (35-48)
[2018-10-08 04:24] LABS: B-TYPE NATRIURETIC PEPTIDE 287 pg/mL (0-100)
[2018-10-08 04:43] LABS: CREATININE 2.4 mg/dL (0.5-1.5); MAGNESIUM 2.1 mg/dL (1.80-2.40); PHOSPHORUS 4.2 mg/dL (2.5-4.9); POTASSIUM 3.3 mmol/L (3.5-5.1)
[2018-10-08] MEDS: POTASSIUM CHLORIDE 20 MEQ ERTAB PO PRN (05:03)
[2018-10-08] MEDS: LORATADINE 10 MG TABLET PO SCH (08:35)
[2018-10-08] MEDS: MULTIVITAMIN TABLET PO SCH (08:35)
[2018-10-08] MEDS: THIAMINE HCL 100 MG TABLET PO SCH (08:35)
[2018-10-08] MEDS: PANTOPRAZOLE SODIUM 40 MG TABLET.DR PO SCH (08:35)
[2018-10-08] MEDS: FOLIC ACID 1 MG TABLET PO SCH (08:35)
[2018-10-08] MEDS: METOPROLOL TARTRATE 25 MG TAB PO SCH ×2 (08:35→20:31)
[2018-10-08] MEDS: [UNRECOGNIZED DRUG - OTHER] IV SCH ×2 (08:40→20:31)
[2018-10-08] MEDS: LEVETIRACETAM IV SCH ×2 (08:40→20:31)
[2018-10-08] MEDS ORDERED: WARFARIN SODIUM 5 MG TAB PO SCH (16:00)
[2018-10-08] MEDS: WARFARIN SODIUM 2 MG TAB PO SCH (16:02)
[2018-10-08] MEDS: ATORVASTATIN CALCIUM 20 MG TABLET PO SCH (20:31)
[2018-10-08] MEDS: CITALOPRAM 20 MG TABLET PO SCH (20:31)
[2018-10-09] VITALS (25 sets, daily range): BP systolic 91–167; BP diastolic 39–107
[2018-10-09 03:51] LABS: INR 1.67 (0.85-1.15); PROTHROMBIN TIME 17.4 SEC (9.6-11.6)
[2018-10-09 04:04] LABS: CREATININE 1.4 mg/dL (0.5-1.5); POTASSIUM 3.3 mmol/L (3.5-5.1)
[2018-10-09] MEDS: DOBUTAMINE 250MG/D5 250ML 250 ML IV SCH ×2 (06:08→17:02)
[2018-10-09] MEDS: POTASSIUM CHLORIDE 20 MEQ ERTAB PO PRN ×2 (06:15→21:03)
[2018-10-09] MEDS: PANTOPRAZOLE SODIUM 40 MG TABLET.DR PO SCH (09:30)
[2018-10-09] MEDS: LEVETIRACETAM IV SCH (09:30)
[2018-10-09] MEDS: [UNRECOGNIZED DRUG - OTHER] IV SCH (09:30)
[2018-10-09] MEDS: MULTIVITAMIN TABLET PO SCH (09:30)
[2018-10-09] MEDS: LORATADINE 10 MG TABLET PO SCH (09:30)
[2018-10-09] MEDS: METOPROLOL TARTRATE 25 MG TAB PO SCH (09:30)
[2018-10-09] MEDS: WARFARIN SODIUM 2 MG TAB PO SCH (15:22)
[2018-10-09] MEDS ORDERED: CARVEDILOL 3.125 MG TABLET PO SCH (21:00)
[2018-10-09] MEDS ORDERED: FUROSEMIDE 10 MG/ML 2ML VIAL IV SCH (21:00)
[2018-10-09] MEDS: CITALOPRAM 20 MG TABLET PO SCH (21:02)
[2018-10-09] MEDS: ATORVASTATIN CALCIUM 20 MG TABLET PO SCH (21:02)
[2018-10-10] VITALS (20 sets, daily range): BP systolic 104–146; BP diastolic 40–104
[2018-10-10] MEDS: POTASSIUM CHLORIDE 20 MEQ ERTAB PO PRN (02:16)
[2018-10-10 04:20] LABS: HEMATOCRIT 37.7 % (42-54); MEAN CORPUSCULAR HEMOGLOBIN 30.8 pg (27.0-33.0); MEAN CORPUSCULAR HGB CONC 33.6 g/dL (32.0-36.0); MEAN CORPUSCULAR VOLUME 91.8 fL (79-99); NUCLEATED RED BLOOD CELLS 0.1 % (0.0-0.19); PLATELET COUNT (AUTO) 184 K/uL (130-400); RED BLOOD CELL COUNT(AUTO) 4.11 MIL/uL (4.50-6.20); RED CELL DISTRIBUTION WIDTH 15.5 % (11.0-15.5); WHITE BLOOD COUNT (AUTO) 6.5 K/uL (4.8-10.8)
[2018-10-10 04:34] LABS: INR 1.75 (0.85-1.15); PARTIAL THROMBOPLASTIN TIME 30.3 SEC (26.3-35.5); PROTHROMBIN TIME 17.7 SEC (9.6-11.6)
[2018-10-10 04:40] LABS: CREATININE 1.1 mg/dL (0.5-1.5); MAGNESIUM 1.6 mg/dL (1.80-2.40); PHOSPHORUS 2.7 mg/dL (2.5-4.9); POTASSIUM 3.7 mmol/L (3.5-5.1)
[2018-10-10 05:32] LABS: B-TYPE NATRIURETIC PEPTIDE 988 pg/mL (0-100)
[2018-10-10] MEDS: FUROSEMIDE 40 MG TABLET PO SCH (10:38)
[2018-10-10] MEDS: SPIRONOLACTONE 25 MG TAB PO SCH (10:38)
[2018-10-10] MEDS: LORATADINE 10 MG TABLET PO SCH (10:38)
[2018-10-10] MEDS: MAGNESIUM 2GM PREMIX 50ML 50 ML IV PRN (10:38)
[2018-10-10] MEDS: PANTOPRAZOLE SODIUM 40 MG TABLET.DR PO SCH (10:38)
[2018-10-10] MEDS: CARVEDILOL 6.25 MG TABLET PO SCH ×2 (10:39→20:51)
[2018-10-10] MEDS: MULTIVITAMIN TABLET PO SCH (10:39)
[2018-10-10] MEDS: MAGNESIUM OXIDE 400 MG TABLET PO SCH (16:36)
[2018-10-10] MEDS: WARFARIN SODIUM 2 MG TAB PO SCH (16:37)
[2018-10-10] MEDS: ATORVASTATIN CALCIUM 20 MG TABLET PO SCH (20:50)
[2018-10-10] MEDS: CITALOPRAM 20 MG TABLET PO SCH (20:50)
[2018-10-11] VITALS (7 sets, daily range): BP systolic 120–143; BP diastolic 86–105
[2018-10-11 04:08] LABS: HEMATOCRIT 39.7 % (42-54); MEAN CORPUSCULAR HEMOGLOBIN 29.9 pg (27.0-33.0); MEAN CORPUSCULAR HGB CONC 32.4 g/dL (32.0-36.0); MEAN CORPUSCULAR VOLUME 92.3 fL (79-99); NUCLEATED RED BLOOD CELLS 0.1 % (0.0-0.19); PLATELET COUNT (AUTO) 161 K/uL (130-400); RED BLOOD CELL COUNT(AUTO) 4.31 MIL/uL (4.50-6.20); RED CELL DISTRIBUTION WIDTH 15.8 % (11.0-15.5); WHITE BLOOD COUNT (AUTO) 7.2 K/uL (4.8-10.8)
[2018-10-11 04:27] LABS: B-TYPE NATRIURETIC PEPTIDE 891 pg/mL (0-100)
[2018-10-11 04:36] LABS: BILIRUBIN,TOTAL 2.1 mg/dL (0.2-1.0); CREATININE 1.2 mg/dL (0.5-1.5); MAGNESIUM 1.9 mg/dL (1.80-2.40); POTASSIUM 3.9 mmol/L (3.5-5.1); TOTAL PROTEIN, SERUM 7.4 g/dL (6.0-8.3)
[2018-10-11 04:37] LABS: ALBUMIN 2.7 g/dL (3.5-5.0)
[2018-10-11] MEDS: MAGNESIUM OXIDE 400 MG TABLET PO SCH (08:56)
[2018-10-11] MEDS: LORATADINE 10 MG TABLET PO SCH (08:56)
[2018-10-11] MEDS: MULTIVITAMIN TABLET PO SCH (08:56)
[2018-10-11] MEDS: CARVEDILOL 6.25 MG TABLET PO SCH ×2 (08:57→21:14)
[2018-10-11] MEDS: FUROSEMIDE 40 MG TABLET PO SCH (08:57)
[2018-10-11] MEDS: PANTOPRAZOLE SODIUM 40 MG TABLET.DR PO SCH (08:57)
[2018-10-11] MEDS: SPIRONOLACTONE 25 MG TAB PO SCH (08:57)
[2018-10-11] MEDS ORDERED: DOBUTAMINE 250MG/D5 250ML 250 ML IV SCH (09:00)
[2018-10-11] MEDS ORDERED: PHYTONADIONE 10 MG/1 ML AMP PO SCH (09:15)
[2018-10-11 09:18] LABS: INR 1.99 (0.85-1.15); PROTHROMBIN TIME 20.6 SEC (9.6-11.6)
[2018-10-11] MEDS: FUROSEMIDE 10 MG/ML 2ML VIAL IV SCH ×2 (10:12→21:13)
[2018-10-11] MEDS ORDERED: PHYTONADIONE 1MG/ML ORAL SOLN PO SCH ×2 (10:30)
[2018-10-11] MEDS: CITALOPRAM 20 MG TABLET PO SCH (21:14)
[2018-10-12 04:15] VITALS: BP 137/95
[2018-10-12 04:21] LABS: MEAN CORPUSCULAR HEMOGLOBIN 30.2 pg (27.0-33.0); MEAN CORPUSCULAR HGB CONC 32.8 g/dL (32.0-36.0); PLATELET COUNT (AUTO) 202 K/uL (130-400); RED BLOOD CELL COUNT(AUTO) 4.35 MIL/uL (4.50-6.20); RED CELL DISTRIBUTION WIDTH 15.8 % (11.0-15.5); WHITE BLOOD COUNT (AUTO) 8.4 K/uL (4.8-10.8)
[2018-10-12 04:27] LABS: INR 1.74 (0.85-1.15); PARTIAL THROMBOPLASTIN TIME 32.2 SEC (26.3-35.5); PROTHROMBIN TIME 18.1 SEC (9.6-11.6)
[2018-10-12 04:41] LABS: ALBUMIN 2.7 g/dL (3.5-5.0); BILIRUBIN,TOTAL 1.8 mg/dL (0.2-1.0); CREATININE 1.2 mg/dL (0.5-1.5); MAGNESIUM 1.8 mg/dL (1.80-2.40); PHOSPHORUS 2.5 mg/dL (2.5-4.9); POTASSIUM 3.7 mmol/L (3.5-5.1); TOTAL PROTEIN, SERUM 7.5 g/dL (6.0-8.3)
[2018-10-12 04:52] LABS: B-TYPE NATRIURETIC PEPTIDE 811 pg/mL (0-100)
[2018-10-12 07:52] VITALS: BP 147/110
[2018-10-12] MEDS: FUROSEMIDE 10 MG/ML 2ML VIAL IV SCH (09:31)
[2018-10-12] MEDS: MULTIVITAMIN TABLET PO SCH (09:31)
[2018-10-12] MEDS: MAGNESIUM OXIDE 400 MG TABLET PO SCH (09:31)
[2018-10-12] MEDS: PANTOPRAZOLE SODIUM 40 MG TABLET.DR PO SCH (09:31)
[2018-10-12] MEDS: CARVEDILOL 6.25 MG TABLET PO SCH ×2 (09:32→20:48)
[2018-10-12] MEDS: LORATADINE 10 MG TABLET PO SCH (09:32)
[2018-10-12] MEDS: SPIRONOLACTONE 25 MG TAB PO SCH (09:32)
[2018-10-12] MEDS: MILRINONE-D5W 20 MG/100 ML 100 ML IV SCH (10:17)
[2018-10-12] MEDS: BUMETANIDE 0.25 MG/ML 10 ML 40 ML IV SCH ×2 (10:18→13:33)
[2018-10-12] MEDS: LOSARTAN 50 MG TABLET PO SCH (10:37)
[2018-10-12] MEDS: ENOXAPARIN SODIUM 30 MG/0.3 ML SQ SCH (10:38)
[2018-10-12 11:00] VITALS: BP 148/88
[2018-10-12 16:03] VITALS: BP 126/84
[2018-10-12 19:50] VITALS: BP 143/104
[2018-10-12] MEDS: CITALOPRAM 20 MG TABLET PO SCH (20:47)
[2018-10-12 23:34] VITALS: BP 142/89
[2018-10-13 03:54] LABS: HEMATOCRIT 41.9 % (42-54); MEAN CORPUSCULAR HEMOGLOBIN 29.3 pg (27.0-33.0); MEAN CORPUSCULAR HGB CONC 32.4 g/dL (32.0-36.0); MEAN CORPUSCULAR VOLUME 90.3 fL (79-99); PLATELET COUNT (AUTO) 188 K/uL (130-400); RED BLOOD CELL COUNT(AUTO) 4.64 MIL/uL (4.50-6.20); RED CELL DISTRIBUTION WIDTH 15.6 % (11.0-15.5); WHITE BLOOD COUNT (AUTO) 7.2 K/uL (4.8-10.8)
[2018-10-13 04:08] LABS: B-TYPE NATRIURETIC PEPTIDE 387 pg/mL (0-100)
[2018-10-13 04:10] LABS: BILIRUBIN,TOTAL 2.2 mg/dL (0.2-1.0); CREATININE 1.3 mg/dL (0.5-1.5); MAGNESIUM 1.3 mg/dL (1.80-2.40); PHOSPHORUS 3.3 mg/dL (2.5-4.9); TOTAL PROTEIN, SERUM 8.4 g/dL (6.0-8.3)
[2018-10-13 04:22] VITALS: BP 144/96
[2018-10-13 04:31] LABS: POTASSIUM 2.7 mmol/L (3.5-5.1)
[2018-10-13] MEDS: POTASSIUM CHLORIDE 20 MEQ ERTAB PO PRN ×4 (04:45→17:03)
[2018-10-13 07:33] VITALS: BP 142/94
[2018-10-13] MEDS: MAGNESIUM 2GM PREMIX 50ML 50 ML IV PRN ×2 (07:49→17:04)
[2018-10-13] MEDS: POTASSIUM CHLORIDE 20MEQ/100ML 100 ML IV PRN ×3 (07:49→17:04)
[2018-10-13] MEDS: LIDOCAINE HCL-MPF 1% 2ML VIAL IVP PRN ×3 (07:49→17:04)
[2018-10-13] MEDS: PANTOPRAZOLE SODIUM 40 MG TABLET.DR PO SCH (07:54)
[2018-10-13] MEDS: LORATADINE 10 MG TABLET PO SCH (07:54)
[2018-10-13] MEDS: LOSARTAN 50 MG TABLET PO SCH (07:54)
[2018-10-13] MEDS: CARVEDILOL 6.25 MG TABLET PO SCH ×2 (07:54→21:29)
[2018-10-13] MEDS: SPIRONOLACTONE 25 MG TAB PO SCH (07:54)
[2018-10-13] MEDS: MAGNESIUM OXIDE 400 MG TABLET PO SCH (07:54)
[2018-10-13] MEDS: ENOXAPARIN SODIUM 30 MG/0.3 ML SQ SCH (07:54)
[2018-10-13] MEDS: MULTIVITAMIN TABLET PO SCH (07:54)
[2018-10-13] MEDS: POTASSIUM CHLORIDE 10% ELIXIR 20 MEQ/15 ML UDCUP PO PRN ×2 (07:54→17:04)
[2018-10-13 10:55] VITALS: BP 118/75
[2018-10-13 16:04] VITALS: BP 134/81
[2018-10-13 16:21] LABS: MAGNESIUM 1.8 mg/dL (1.80-2.40); POTASSIUM 3.4 mmol/L (3.5-5.1)
[2018-10-13] MEDS: FUROSEMIDE 10 MG/ML 4ML VIAL IV SCH (17:03)
[2018-10-13 19:00] VITALS: BP 111/81
[2018-10-13] MEDS: CITALOPRAM 20 MG TABLET PO SCH (21:28)
[2018-10-13 23:00] VITALS: BP 133/83
[2018-10-14 03:00] VITALS: BP 118/78
[2018-10-14 04:15] LABS: HEMATOCRIT 42.9 % (42-54); MEAN CORPUSCULAR HEMOGLOBIN 30.1 pg (27.0-33.0); MEAN CORPUSCULAR HGB CONC 33.3 g/dL (32.0-36.0); MEAN CORPUSCULAR VOLUME 90.4 fL (79-99); PLATELET COUNT (AUTO) 226 K/uL (130-400); RED BLOOD CELL COUNT(AUTO) 4.74 MIL/uL (4.50-6.20); WHITE BLOOD COUNT (AUTO) 6.3 K/uL (4.8-10.8)
[2018-10-14 04:37] LABS: ALBUMIN 2.8 g/dL (3.5-5.0); CREATININE 1.2 mg/dL (0.5-1.5); MAGNESIUM 2.1 mg/dL (1.80-2.40); PHOSPHORUS 3.3 mg/dL (2.5-4.9); POTASSIUM 3.2 mmol/L (3.5-5.1)
[2018-10-14] MEDS: POTASSIUM CHLORIDE 20MEQ/100ML 100 ML IV PRN (05:17)
[2018-10-14] MEDS: LIDOCAINE HCL-MPF 1% 2ML VIAL IVP PRN (05:17)
[2018-10-14] MEDS: FUROSEMIDE 10 MG/ML 4ML VIAL IV SCH ×2 (05:19→17:11)
[2018-10-14] MEDS: POTASSIUM CHLORIDE 10% ELIXIR 20 MEQ/15 ML UDCUP PO PRN (05:19)
[2018-10-14] MEDS: MILRINONE-D5W 20 MG/100 ML 100 ML IV SCH ×2 (06:20→21:57)
[2018-10-14 07:39] VITALS: BP 111/81
[2018-10-14] MEDS: CARVEDILOL 6.25 MG TABLET PO SCH ×2 (10:00→21:59)
[2018-10-14] MEDS: MAGNESIUM OXIDE 400 MG TABLET PO SCH (10:00)
[2018-10-14] MEDS: LORATADINE 10 MG TABLET PO SCH (10:00)
[2018-10-14] MEDS: LOSARTAN 50 MG TABLET PO SCH (10:00)
[2018-10-14] MEDS: SPIRONOLACTONE 25 MG TAB PO SCH (10:00)
[2018-10-14] MEDS: PANTOPRAZOLE SODIUM 40 MG TABLET.DR PO SCH (10:00)
[2018-10-14] MEDS: MULTIVITAMIN TABLET PO SCH (10:00)
[2018-10-14] MEDS: POTASSIUM CHLORIDE 20 MEQ ERTAB PO PRN (10:01)
[2018-10-14] MEDS: ENOXAPARIN SODIUM 30 MG/0.3 ML SQ SCH (10:04)
[2018-10-14 11:32] VITALS: BP 115/63
[2018-10-14 16:13] VITALS: BP 128/77
[2018-10-14 19:00] VITALS: BP 143/95
[2018-10-14] MEDS: CITALOPRAM 20 MG TABLET PO SCH (21:59)
[2018-10-14 23:00] VITALS: BP 157/72
[2018-10-15 03:00] VITALS: BP 152/92
[2018-10-15 03:53] LABS: HEMATOCRIT 42.5 % (42-54); MEAN CORPUSCULAR HEMOGLOBIN 29.2 pg (27.0-33.0); MEAN CORPUSCULAR HGB CONC 32.5 g/dL (32.0-36.0); MEAN CORPUSCULAR VOLUME 90.1 fL (79-99); NUCLEATED RED BLOOD CELLS 0.1 % (0.0-0.19); PLATELET COUNT (AUTO) 194 K/uL (130-400); RED BLOOD CELL COUNT(AUTO) 4.71 MIL/uL (4.50-6.20); RED CELL DISTRIBUTION WIDTH 15.9 % (11.0-15.5); WHITE BLOOD COUNT (AUTO) 6.6 K/uL (4.8-10.8)
[2018-10-15 03:59] LABS: CREATININE 1.2 mg/dL (0.5-1.5); MAGNESIUM 1.7 mg/dL (1.80-2.40); POTASSIUM 3.4 mmol/L (3.5-5.1)
[2018-10-15 04:22] LABS: B-TYPE NATRIURETIC PEPTIDE 251 pg/mL (0-100)
[2018-10-15] MEDS: FUROSEMIDE 10 MG/ML 4ML VIAL IV SCH (05:07)
[2018-10-15] MEDS: POTASSIUM CHLORIDE 10% ELIXIR 20 MEQ/15 ML UDCUP PO PRN (05:08)
[2018-10-15] MEDS: MAGNESIUM 2GM PREMIX 50ML 50 ML IV PRN (05:13)
[2018-10-15 07:26] VITALS: BP 150/74
[2018-10-15] MEDS: MULTIVITAMIN TABLET PO SCH (08:38)
[2018-10-15] MEDS: LOSARTAN 50 MG TABLET PO SCH (08:38)
[2018-10-15] MEDS: LORATADINE 10 MG TABLET PO SCH (08:38)
[2018-10-15] MEDS: MAGNESIUM OXIDE 400 MG TABLET PO SCH (08:38)
[2018-10-15] MEDS: PANTOPRAZOLE SODIUM 40 MG TABLET.DR PO SCH (08:39)
[2018-10-15] MEDS: POTASSIUM CHLORIDE 20 MEQ ERTAB PO PRN (08:40)
[2018-10-15] MEDS: SPIRONOLACTONE 25 MG TAB PO SCH (08:40)
[2018-10-15] MEDS: CARVEDILOL 6.25 MG TABLET PO SCH ×2 (08:41→21:17)
[2018-10-15] MEDS: ENOXAPARIN SODIUM 30 MG/0.3 ML SQ SCH (08:43)
[2018-10-15] MEDS: FUROSEMIDE 80 MG TABLET PO SCH ×2 (10:47→21:18)
[2018-10-15 11:16] VITALS: BP 110/81
[2018-10-15 16:26] VITALS: BP 134/77
[2018-10-15] MEDS: WARFARIN SODIUM 5 MG TAB PO SCH (16:50)
[2018-10-15 19:00] VITALS: BP 121/85
[2018-10-15] MEDS: CITALOPRAM 20 MG TABLET PO SCH (21:18)
[2018-10-15 23:00] VITALS: BP 132/91
[2018-10-16 03:00] VITALS: BP 128/76
[2018-10-16 03:49] LABS: HEMATOCRIT 43.6 % (42-54); MEAN CORPUSCULAR HEMOGLOBIN 29.3 pg (27.0-33.0); MEAN CORPUSCULAR HGB CONC 32.6 g/dL (32.0-36.0); MEAN CORPUSCULAR VOLUME 89.8 fL (79-99); NUCLEATED RED BLOOD CELLS 0.1 % (0.0-0.19); PLATELET COUNT (AUTO) 220 K/uL (130-400); RED BLOOD CELL COUNT(AUTO) 4.85 MIL/uL (4.50-6.20); RED CELL DISTRIBUTION WIDTH 16.1 % (11.0-15.5); WHITE BLOOD COUNT (AUTO) 7.6 K/uL (4.8-10.8)
[2018-10-16 04:01] LABS: ALBUMIN 2.6 g/dL (3.5-5.0); BILIRUBIN,TOTAL 1.4 mg/dL (0.2-1.0); CREATININE 1.2 mg/dL (0.5-1.5); MAGNESIUM 1.6 mg/dL (1.80-2.40); PHOSPHORUS 3.4 mg/dL (2.5-4.9); POTASSIUM 3.6 mmol/L (3.5-5.1); TOTAL PROTEIN, SERUM 7.5 g/dL (6.0-8.3)
[2018-10-16 04:05] LABS: INR 1.17 (0.85-1.15); PARTIAL THROMBOPLASTIN TIME 30.1 SEC (26.3-35.5); PROTHROMBIN TIME 12.2 SEC (9.6-11.6)
[2018-10-16 04:20] LABS: B-TYPE NATRIURETIC PEPTIDE 608 pg/mL (0-100)
[2018-10-16] MEDS: POTASSIUM CHLORIDE 20 MEQ ERTAB PO PRN ×2 (04:23→22:18)
[2018-10-16] MEDS: MAGNESIUM 2GM PREMIX 50ML 50 ML IV PRN (04:24)
[2018-10-16 07:00] VITALS: BP 144/107
[2018-10-16] MEDS: PANTOPRAZOLE SODIUM 40 MG TABLET.DR PO SCH (09:26)
[2018-10-16] MEDS: ENOXAPARIN SODIUM 30 MG/0.3 ML SQ SCH (09:26)
[2018-10-16] MEDS: FUROSEMIDE 80 MG TABLET PO SCH ×2 (09:26→22:12)
[2018-10-16] MEDS: LOSARTAN 50 MG TABLET PO SCH (09:27)
[2018-10-16] MEDS: LORATADINE 10 MG TABLET PO SCH (09:27)
[2018-10-16] MEDS: CARVEDILOL 6.25 MG TABLET PO SCH ×2 (09:28→22:12)
[2018-10-16] MEDS: MULTIVITAMIN TABLET PO SCH (09:28)
[2018-10-16] MEDS: SPIRONOLACTONE 25 MG TAB PO SCH ×2 (09:28→22:12)
[2018-10-16] MEDS: MAGNESIUM OXIDE 400 MG TABLET PO SCH (09:28)
[2018-10-16 11:00] VITALS: BP 120/70
[2018-10-16 16:00] VITALS: BP 112/79
[2018-10-16] MEDS: WARFARIN SODIUM 5 MG TAB PO SCH (16:00)
[2018-10-16 19:39] VITALS: BP 123/91
[2018-10-16] MEDS: CITALOPRAM 20 MG TABLET PO SCH (22:12)
[2018-10-16 23:15] VITALS: BP 131/61
[2018-10-17 03:31] VITALS: BP 132/75
[2018-10-17 04:11] LABS: HEMATOCRIT 43.4 % (42-54); MEAN CORPUSCULAR HEMOGLOBIN 28.9 pg (27.0-33.0); MEAN CORPUSCULAR HGB CONC 32.3 g/dL (32.0-36.0); MEAN CORPUSCULAR VOLUME 89.4 fL (79-99); NUCLEATED RED BLOOD CELLS 0.2 % (0.0-0.19); PLATELET COUNT (AUTO) 192 K/uL (130-400); RED BLOOD CELL COUNT(AUTO) 4.85 MIL/uL (4.50-6.20); RED CELL DISTRIBUTION WIDTH 16.3 % (11.0-15.5); WHITE BLOOD COUNT (AUTO) 7.5 K/uL (4.8-10.8)
[2018-10-17 04:18] LABS: CREATININE 1.2 mg/dL (0.5-1.5)
[2018-10-17 04:20] LABS: INR 1.18 (0.85-1.15); PARTIAL THROMBOPLASTIN TIME 30.2 SEC (26.3-35.5); PROTHROMBIN TIME 12.4 SEC (9.6-11.6)
[2018-10-17 04:32] LABS: B-TYPE NATRIURETIC PEPTIDE 720 pg/mL (0-100)
[2018-10-17 07:00] VITALS: BP 136/96
[2018-10-17] MEDS ORDERED: PANT40TA PO (09:32)
[2018-10-17] MEDS ORDERED: LOSA50TA2 PO (09:32)
[2018-10-17] MEDS ORDERED: CARV6.2579 PO (09:32)
[2018-10-17] MEDS ORDERED: FURO80TA3 PO (09:32)
[2018-10-17] MEDS ORDERED: SPIR25TA PO (09:32)
[2018-10-17] MEDS ORDERED: WARF5TAB76 PO (09:32)
[2018-10-17 11:00] VITALS: BP 113/68
[2018-10-17] MEDS: PANTOPRAZOLE SODIUM 40 MG TABLET.DR PO SCH (11:07)
[2018-10-17] MEDS: MULTIVITAMIN TABLET PO SCH (11:07)
[2018-10-17 11:08] VITALS: BP 136/96
[2018-10-17] MEDS: LORATADINE 10 MG TABLET PO SCH (11:08)
[2018-10-17] MEDS: CARVEDILOL 6.25 MG TABLET PO SCH (11:08)
[2018-10-17] MEDS: LOSARTAN 50 MG TABLET PO SCH (11:08)
[2018-10-17] MEDS: MAGNESIUM OXIDE 400 MG TABLET PO SCH (11:08)
[2018-10-17] MEDS: FUROSEMIDE 80 MG TABLET PO SCH (11:08)
[2018-10-17] MEDS: ENOXAPARIN SODIUM 30 MG/0.3 ML SQ SCH (11:10)
[2018-10-17] MEDS: SPIRONOLACTONE 25 MG TAB PO SCH (11:13)
== END 2018-10-17 15:40 | disposition home or self-care (01) | DRG 291 ==
LOC: EDH 16:27 → EDHIP 16:28 → 4CH 21:21 → 2BH 10-06 12:11 → 2DH 10-10 14:47
PROVIDERS: ADMIT Internal Medicine; ATTEND Internal Medicine
PROC: 5A12012 Performance of Cardiac Output, Single, Manual (ICD-10-PCS; principal; 2018-10-06)
PROC: 5A09357 Assistance with Respiratory Ventilation, Less than 24 Consecutive Hours, Continuous Positive Airway Pressure (ICD-10-PCS; 2018-10-06)
DX: I13.0 Hypertensive heart and chronic kidney disease with heart failure and stage 1 through stage 4 chronic kidney disease, or unspecified chronic kidney disease (principal); I50.23 Acute on chronic systolic (congestive) heart failure; I46.2 Cardiac arrest due to underlying cardiac condition; J96.01 Acute respiratory failure with hypoxia; D68.59 Other primary thrombophilia; Z68.41 Body mass index [BMI] 40.0-44.9, adult; N17.9 Acute kidney failure, unspecified; I48.0 Paroxysmal atrial fibrillation; I42.0 Dilated cardiomyopathy; I42.6 Alcoholic cardiomyopathy; E87.6 Hypokalemia; E11.22 Type 2 diabetes mellitus with diabetic chronic kidney disease; E66.01 Morbid (severe) obesity due to excess calories; E78.5 Hyperlipidemia, unspecified; F10.20 Alcohol dependence, uncomplicated; F41.8 Other specified anxiety disorders; G47.33 Obstructive sleep apnea (adult) (pediatric); I16.0 Hypertensive urgency; I48.2 Chronic atrial fibrillation; K70.9 Alcoholic liver disease, unspecified; K75.81 Nonalcoholic steatohepatitis (NASH); K76.1 Chronic passive congestion of liver; N18.3 Chronic kidney disease, stage 3 (moderate); R56.9 Unspecified convulsions; Z16.24 Resistance to multiple antibiotics; Z79.01 Long term (current) use of anticoagulants; Z79.899 Other long term (current) drug therapy; Z91.14 Patient's other noncompliance with medication regimen; Z91.19 Patient's noncompliance with other medical treatment and regimen; Z83.3 Family history of diabetes mellitus; Z82.49 Family history of ischemic heart disease and other diseases of the circulatory system
CPT/HCPCS: 36415; 36600; 70450; 71045; 71275; 76705; 80048; 80053; 80061; 81001; 82435; 82550; 82803; 82947; 82948; 83605; 83735; 83874; 83880; 84100; 84132; 84295; 84484; 85018; 85025; 85027; 85610; 85730; 87804; 92950; 93005; 93306; 93970; 94640; 94660; 94664; 99291; G0378; J0171; J1250; J1650; J1940; J1953; J2260; J2704; J3430; J3475; J3480; J3490

== ENCOUNTER 2018-11-19 17:54 | Inpatient (IN) | payer SELFPAY ==
[~2018-11-19] VITALS: Ht 170.2 cm; Wt 113.2 kg
[~2018-11-19 17:54] MED LIST changes: +CARV6.2579 PO; +CETI10TA57 PO; -EPINEPHRINE 0.1 MG/ML 10 ML SYG IVP ONE; +FURO80TA3 PO; +LOSA50TA2 PO; +NIFE60TA81 PO; +PAMA50TA PO; +PANT40TA PO; +SIMV40TA5 PO; +WARF5TAB76 PO
[2018-11-19] MEDS ORDERED: ONDANSETRON HCL 4 MG/2 ML VIAL ONE (18:58)
[2018-11-19 19:43] LABS: BASOPHILS % (AUTO) 1.1 % (0.0-5.0); EOSINOPHILS % (AUTO) 0.8 % (0.0-8.0); HEMATOCRIT 38.8 % (42-54); LYMPHOCYTES % (AUTO) 14.3 % (21.0-51.0); MEAN CORPUSCULAR HEMOGLOBIN 29.1 pg (27.0-33.0); MEAN CORPUSCULAR VOLUME 90.9 fL (79-99); MONOCYTES % (AUTO) 10.9 % (3.0-13.0); NEUTROPHILS % (AUTO) 72.9 % (40.0-77.0); NUCLEATED RED BLOOD CELLS 0.1 % (0.0-0.19); PLATELET COUNT (AUTO) 171 K/uL (130-400); RED BLOOD CELL COUNT(AUTO) 4.27 MIL/uL (4.50-6.20); RED CELL DISTRIBUTION WIDTH 19.5 % (11.0-15.5); WHITE BLOOD COUNT (AUTO) 8.1 K/uL (4.8-10.8)
[2018-11-19 19:50] LABS: CREATININE 1.2 mg/dL (0.5-1.5); INR 1.51 (0.85-1.15); PARTIAL THROMBOPLASTIN TIME 29.7 SEC (26.3-35.5); POTASSIUM 3.9 mmol/L (3.5-5.1); PROTHROMBIN TIME 15.7 SEC (9.6-11.6)
[2018-11-19 20:07] LABS: ALBUMIN 3.1 g/dL (3.5-5.0); BILIRUBIN,TOTAL 1.7 mg/dL (0.2-1.0); TOTAL PROTEIN, SERUM 8.3 g/dL (6.0-8.3)
[2018-11-19 21:06] LABS: B-TYPE NATRIURETIC PEPTIDE 460 pg/mL (0-100)
[2018-11-19] MEDS ORDERED: ONDANSETRON HCL 4 MG/2 ML VIAL IV PRN (21:45)
[2018-11-19] MEDS ORDERED: ACETAMINOPHEN 325 MG TAB PO PRN (21:45)
[2018-11-19] MEDS ORDERED: NITROGLYCERIN 0.4 MG SL TAB SL PRN (21:45)
[2018-11-19] MEDS ORDERED: ACETAMINOPHEN 325 MG TAB ONE (22:00)
[2018-11-19 22:43] LABS: MAGNESIUM 1.7 mg/dL (1.80-2.40); THYROID STIMULATING HORMONE 5.31 uIU/mL (0.36-3.74)
[2018-11-20] VITALS (12 sets, daily range): BP systolic 80–138; BP diastolic 50–92
[2018-11-20] MEDS ORDERED: POTASSIUM CHLORIDE 10% ELIXIR 20 MEQ/15 ML UDCUP PO PRN (01:00)
[2018-11-20] MEDS ORDERED: POTASSIUM CHLORIDE 20 MEQ ERTAB PO PRN (01:00)
[2018-11-20] MEDS ORDERED: POTASSIUM CHLORIDE 20MEQ/100ML 100 ML IV PRN (01:00)
[2018-11-20] MEDS ORDERED: LIDOCAINE HCL-MPF 1% 2ML VIAL IVP PRN (01:00)
[2018-11-20] MEDS ORDERED: MAGNESIUM 2GM PREMIX 50ML 50 ML IV PRN (01:00)
[2018-11-20 02:22] LABS: TROPONIN I 0.08 ng/mL (0.00-0.06)
[2018-11-20] MEDS ORDERED: MAGNESIUM 2GM PREMIX 50ML 50 ML IV ONE (03:30)
[2018-11-20] MEDS ORDERED: METO100T14 PO (04:47)
[2018-11-20] MEDS ORDERED: WARF-67 PO (04:53)
[2018-11-20] MEDS ORDERED: WARF2.5T85 PO (04:53)
[2018-11-20 07:06] LABS: BASOPHILS % (AUTO) 1.2 % (0.0-5.0); EOSINOPHILS % (AUTO) 0.4 % (0.0-8.0); HEMATOCRIT 38.8 % (42-54); LYMPHOCYTES % (AUTO) 16.1 % (21.0-51.0); MEAN CORPUSCULAR HEMOGLOBIN 29.6 pg (27.0-33.0); MEAN CORPUSCULAR HGB CONC 32.9 g/dL (32.0-36.0); MEAN CORPUSCULAR VOLUME 89.9 fL (79-99); NEUTROPHILS % (AUTO) 69.3 % (40.0-77.0); PLATELET COUNT (AUTO) 194 K/uL (130-400); RED BLOOD CELL COUNT(AUTO) 4.32 MIL/uL (4.50-6.20); RED CELL DISTRIBUTION WIDTH 19.3 % (11.0-15.5); WHITE BLOOD COUNT (AUTO) 8.1 K/uL (4.8-10.8)
[2018-11-20 07:19] LABS: INR 1.75 (0.85-1.15); PARTIAL THROMBOPLASTIN TIME 31.1 SEC (26.3-35.5); PROTHROMBIN TIME 18.2 SEC (9.6-11.6)
[2018-11-20 07:32] LABS: BILIRUBIN,TOTAL 2.8 mg/dL (0.2-1.0); CREATININE 1.5 mg/dL (0.5-1.5); MAGNESIUM 2.1 mg/dL (1.80-2.40); POTASSIUM 3.8 mmol/L (3.5-5.1); TOTAL PROTEIN, SERUM 8.1 g/dL (6.0-8.3); TROPONIN I 0.12 ng/mL (0.00-0.06)
--- NOTE | 2018-11-20 08:42 | NUR ---
THEAD DR. LESTER SPOKE TO KAREL OF [facility] [phone] REGARDING CONSULT.
[2018-11-20] MEDS ORDERED: ENOXAPARIN SODIUM 30 MG/0.3 ML SQ SCH ×2 (09:00)
--- NOTE | 2018-11-20 09:00 | NUR ---
HOME MEDICATIONS INFORMED LEAH BAUM NP FOR HOSPITALIST DR. CANCHOLA THAT PATIENTS HOME MEDICATIONS ENTERED AND PENDING TO BE REVIEWED.
[2018-11-20] MEDS: PANTOPRAZOLE SODIUM 40 MG TABLET.DR PO SCH (10:08)
[2018-11-20 12:35] LABS: AMPHET/METH SCREEN,URINE NEGATIVE (NEGATIVE); BARBITURATE SCREEN, URINE NEGATIVE (NEGATIVE); BENZODIAZEPINES SCREEN,URINE NEGATIVE (NEGATIVE); CANNABINOID SCREEN,URINE NEGATIVE (NEGATIVE); COCAINE SCREEN,URINE NEGATIVE (NEGATIVE); OPIATE SCREEN,URINE NEGATIVE (NEGATIVE); PHENCYCLIDINE SCREEN,URINE NEGATIVE (NEGATIVE)
--- NOTE | 2018-11-20 15:10 | NUR ---
DCP CM met with pt discussed dc plans. Pt is independent prior to admission, lives at home with son Denys Christy . Denies any equipments/services. Pt feels safe to go back home, son able to assist with transportation and needs as necessary. DC plan to home once stable. CM to cont to follow up. Addendum: 11/20/18 at 1511 by NELLI CLEMENTE LVN CM Amended: Links added.
[2018-11-20] MEDS: FUROSEMIDE 40 MG TABLET PO SCH (16:41)
[2018-11-20] MEDS: LEVOFLOXACIN 500 MG/D5W 100 ML 100 ML IV SCH (16:45)
[2018-11-20] MEDS: ENOXAPARIN SODIUM 120 MG/0.8ML SQ SCH (20:56)
[2018-11-20] MEDS: METOPROLOL TARTRATE 50 MG TAB PO SCH (20:56)
[2018-11-21] VITALS (10 sets, daily range): BP systolic 99–131; BP diastolic 66–86
[2018-11-21 05:55] LABS: INR 1.75 (0.85-1.15); PARTIAL THROMBOPLASTIN TIME 34.5 SEC (26.3-35.5); PROTHROMBIN TIME 18.2 SEC (9.6-11.6)
[2018-11-21] MEDS: LOSARTAN 50 MG TABLET PO SCH (10:52)
[2018-11-21] MEDS: PANTOPRAZOLE SODIUM 40 MG TABLET.DR PO SCH (10:52)
[2018-11-21] MEDS: METOPROLOL TARTRATE 50 MG TAB PO SCH ×2 (10:52→21:34)
[2018-11-21] MEDS: LEVOFLOXACIN 500 MG/D5W 100 ML 100 ML IV SCH (10:53)
[2018-11-21] MEDS: FUROSEMIDE 40 MG TABLET PO SCH ×2 (10:53→17:36)
[2018-11-21] MEDS: ENOXAPARIN SODIUM 120 MG/0.8ML SQ SCH ×2 (10:54→21:37)
[2018-11-21] MEDS ORDERED: CEFD300C3 PO (12:58)
[2018-11-21] MEDS ORDERED: METO100T14 PO (12:58)
--- NOTE | 2018-11-21 16:20 | NUR ---
NOTIFIED DR. PENA REGARDING PT PENDING LIFE VEST FROM HOME REPORTING PT'S SON CANT FIND BUT WILL BRING ONCE HE DOES. DR. PENA HOLD D/C IF PT DOES NOT GET LIFE VEST.
--- NOTE | 2018-11-21 16:34 | NUR ---
NOTIFIED RAVEN REGARDING LIFE VEST PT'S UNABLE TO FIND LIFE VEST AT HOME. PT'S SON TO BRING LIFE VEST TO PT HERE AT HOSPITAL. PT VERBALIZED UNDERSTANDING. ORDERS TO D/C HOME ONCE LIFE VEST IN PLACE.
[2018-11-22 04:10] VITALS: BP 137/75
[2018-11-22 05:01] LABS: INR 1.73 (0.85-1.15); PARTIAL THROMBOPLASTIN TIME 38.5 SEC (26.3-35.5)
[2018-11-22 08:00] VITALS: BP 133/94
--- NOTE | 2018-11-22 09:30 | NUR ---
CM Note: Pt signed AMA and refusal for lifevest CM met with pt discussed MD clear for dc once lifevest on. Per pt his son cannot find his lifevest at home ,unable to afford another lifevest, aware it will cost around $500. Pt at this time states he will find his lifevest once he get home today and will put it on as soon as he find it, pt aware lifevest still need to be on for 3 more weeks. Pt made aware MD is not comfortable to dc pt w/o lifevest on. Pt at this time verbalized he would like to go home w/o the lifevest on even if MD does not approve. Discussed regarding leaving via AMA, pt verbalized understanding and still would like to to home. Refusal and AMA forms signed. Primary nurse updated. [employer] SALES ASSISTANT [employer] made aware, ok to dc via AMA. CM to cont to follow up.
[2018-11-22] MEDS: PANTOPRAZOLE SODIUM 40 MG TABLET.DR PO SCH (09:43)
[2018-11-22] MEDS: METOPROLOL TARTRATE 50 MG TAB PO SCH (09:43)
[2018-11-22] MEDS: FUROSEMIDE 40 MG TABLET PO SCH (09:44)
[2018-11-22] MEDS: ENOXAPARIN SODIUM 120 MG/0.8ML SQ SCH (09:44)
[2018-11-22] MEDS: LOSARTAN 50 MG TABLET PO SCH (09:44)
[2018-11-22] MEDS: LEVOFLOXACIN 500 MG/D5W 100 ML 100 ML IV SCH (12:00)
== END 2018-11-22 16:59 | disposition left against medical advice (07) | DRG 312 ==
LOC: EDH 17:54 → EDHIP 17:55 → 4BH 11-20 03:50
PROVIDERS: ADMIT Hospitalist; ATTEND Hospitalist
DX: R55 Syncope and collapse (principal); I50.23 Acute on chronic systolic (congestive) heart failure; J18.9 Pneumonia, unspecified organism; D68.59 Other primary thrombophilia; I42.0 Dilated cardiomyopathy; I42.6 Alcoholic cardiomyopathy; I48.2 Chronic atrial fibrillation; E66.9 Obesity, unspecified; E78.5 Hyperlipidemia, unspecified; F32.9 Major depressive disorder, single episode, unspecified; G47.33 Obstructive sleep apnea (adult) (pediatric); I11.0 Hypertensive heart disease with heart failure; Z53.21 Procedure and treatment not carried out due to patient leaving prior to being seen by health care provider; F41.9 Anxiety disorder, unspecified; W18.30XA Fall on same level, unspecified, initial encounter; Z16.24 Resistance to multiple antibiotics; Z79.01 Long term (current) use of anticoagulants; Z82.3 Family history of stroke; Z83.3 Family history of diabetes mellitus; Z86.74 Personal history of sudden cardiac arrest; Z90.49 Acquired absence of other specified parts of digestive tract; Z91.19 Patient's noncompliance with other medical treatment and regimen; Z82.49 Family history of ischemic heart disease and other diseases of the circulatory system; Z79.899 Other long term (current) drug therapy; Y93.89 Activity, other specified; Y92.89 Other specified places as the place of occurrence of the external cause; Y99.8 Other external cause status; Z68.39 Body mass index [BMI] 39.0-39.9, adult
CPT/HCPCS: 36415; 71045; 80053; 80305; 82550; 83735; 83874; 83880; 84443; 84484; 85025; 85610; 85730; 93005; G0378; J1650; J1956; J2405; J3475

== ENCOUNTER 2019-04-20 18:17 | Emergency (ER) | payer SELFPAY ==
[~2019-04-20 18:17] MED LIST changes: -CARV6.2579 PO; +CEFD300C3 PO; -ERGO400T7 PO; -FURO40TA7 PO; -LOSA100T2 PO; +METO100T14 PO; -NIFE60TA81 PO; -PAMA50TA PO; -PANT40TA PO; -SIMV40TA5 PO; +WARF-67 PO; +WARF2.5T85 PO; -WARF2TAB57 PO; -WARF5TAB76 PO
[2019-04-20] MEDS ORDERED: DEXAMETHASONE SOD PHOSPHATE 10MG/ML 1ML VIAL ONE (20:31)
[2019-04-20] MEDS ORDERED: SODIUM CHLORIDE 0.9% 50 ML IV ONE (20:31)
[2019-04-20] MEDS ORDERED: CEFTRIAXONE SODIUM 1 GM ONE (20:31)
[2019-04-20] MEDS ORDERED: ALBUTEROL SULFATE 0.083% 2.5 MG/3 ML INH IH ONE (20:33)
[2019-04-20 20:35] LABS: BASOPHILS % (AUTO) 0.4 % (0.0-5.0); EOSINOPHILS % (AUTO) 0.1 % (0.0-8.0); HEMATOCRIT 38.9 % (42-54); LYMPHOCYTES % (AUTO) 9.7 % (21.0-51.0); MEAN CORPUSCULAR HEMOGLOBIN 32.8 pg (27.0-33.0); MEAN CORPUSCULAR VOLUME 96.5 fL (79-99); MONOCYTES % (AUTO) 9.8 % (3.0-13.0); NUCLEATED RED BLOOD CELLS 0.1 % (0.0-0.19); PLATELET COUNT (AUTO) 172 K/uL (130-400); RED BLOOD CELL COUNT(AUTO) 4.04 MIL/uL (4.50-6.20); RED CELL DISTRIBUTION WIDTH 17.4 % (11.0-15.5); WHITE BLOOD COUNT (AUTO) 7.8 K/uL (4.8-10.8)
[2019-04-20 20:49] LABS: CREATININE 1.9 mg/dL (0.5-1.5); INR 1.72 (0.85-1.15); PARTIAL THROMBOPLASTIN TIME 29.1 SEC (26.3-35.5); PROTHROMBIN TIME 17.9 SEC (9.6-11.6)
[2019-04-20 20:57] LABS: ALBUMIN 2.9 g/dL (3.5-5.0); BILIRUBIN,DIRECT 2.6 mg/dL (0.0-0.3); BILIRUBIN,TOTAL 4.7 mg/dL (0.2-1.0); POTASSIUM 2.8 mmol/L (3.5-5.1)
[2019-04-20] MEDS ORDERED: POTASSIUM BICARB/CIT AC 25 MEQ TABLET.EFF ONE (21:10)
[2019-04-20] MEDS ORDERED: METOPROLOL TARTRATE 1 MG/ML 5ML VIAL IV ONE (22:05)
[2019-04-20] MEDS ORDERED: SODIUM CHLORIDE 0.9% 1000ML 1,000 ML IV ONE (22:43)
== END 2019-04-21 00:03 | disposition home or self-care (01) ==
LOC: EDH 20:05
DX: J10.1 Influenza due to other identified influenza virus with other respiratory manifestations (principal); I48.91 Unspecified atrial fibrillation; E86.0 Dehydration; I50.9 Heart failure, unspecified; Z90.49 Acquired absence of other specified parts of digestive tract; Z98.890 Other specified postprocedural states
CPT/HCPCS: 36415; 71046; 76705; 80048; 80076; 83880; 84484 ×2; 85025; 85610; 85730; 87804 ×2; 93005; 94640; 96361; 96374; 96375; 99285; J0696; J1100; J3490; J7030

== ENCOUNTER 2019-04-30 19:42 | Inpatient (IN) | payer SELFPAY ==
[~2019-04-30] VITALS: Ht 170.2 cm; Wt 103.9 kg
[2019-04-30 20:24] LABS: BASOPHILS % (AUTO) 1.1 % (0.0-5.0); EOSINOPHILS % (AUTO) 0.2 % (0.0-8.0); HEMATOCRIT 38.6 % (42-54); LYMPHOCYTES % (AUTO) 14.2 % (21.0-51.0); MEAN CORPUSCULAR HEMOGLOBIN 31.5 pg (27.0-33.0); MEAN CORPUSCULAR HGB CONC 32.7 g/dL (32.0-36.0); MEAN CORPUSCULAR VOLUME 96.4 fL (79-99); MONOCYTES % (AUTO) 9.7 % (3.0-13.0); NEUTROPHILS % (AUTO) 74.8 % (40.0-77.0); NUCLEATED RED BLOOD CELLS 0.1 % (0.0-0.19); PLATELET COUNT (AUTO) 195 K/uL (130-400); RED CELL DISTRIBUTION WIDTH 17.2 % (11.0-15.5); WHITE BLOOD COUNT (AUTO) 8.8 K/uL (4.8-10.8)
[2019-04-30] MEDS ORDERED: DILTIAZEM HCL 125 MG/25 ML VIAL IV ONE (20:24)
[2019-04-30] MEDS ORDERED: DILTIAZEM HCL 5 MG/ML 10 ML VIAL IV ONE ×2 (20:24→21:15)
[2019-04-30] MEDS ORDERED: SODIUM CHLORIDE 0.9% 100 ML IV ONE (20:24)
[2019-04-30 20:35] LABS: CREATININE 1.3 mg/dL (0.5-1.5); POTASSIUM 3.4 mmol/L (3.5-5.1)
[2019-04-30 20:38] LABS: INR 1.31 (0.85-1.15); PARTIAL THROMBOPLASTIN TIME 28.5 SEC (26.3-35.5); PROTHROMBIN TIME 13.7 SEC (9.6-11.6)
[2019-04-30 20:40] LABS: ALBUMIN 2.9 g/dL (3.5-5.0); BILIRUBIN,TOTAL 3.1 mg/dL (0.2-1.0)
[2019-04-30] MEDS ORDERED: DIGOXIN 250 MCG/ML 2ML AMP ONE (23:07)
[2019-05-01] MEDS ORDERED: MAGNESIUM 2GM PREMIX 50ML 50 ML IV PRN (00:15)
[2019-05-01] MEDS ORDERED: POTASSIUM CHLORIDE 10% ELIXIR 20 MEQ/15 ML UDCUP PO PRN (00:15)
[2019-05-01] MEDS ORDERED: ONDANSETRON HCL 4 MG/2 ML VIAL IV PRN (00:15)
[2019-05-01] MEDS ORDERED: NITROGLYCERIN 0.4 MG SL TAB SL PRN (00:15)
[2019-05-01] MEDS ORDERED: LIDOCAINE HCL-MPF 1% 2ML VIAL IVP PRN (00:15)
[2019-05-01] MEDS ORDERED: DILTIAZEM 125MG+100 ML NS 125 ML IV PRN (00:15)
[2019-05-01] MEDS ORDERED: ACETAMINOPHEN 325 MG TAB PO PRN ×2 (00:15)
[2019-05-01] MEDS ORDERED: POTASSIUM CHLORIDE 20MEQ/100ML 100 ML IV PRN (00:15)
[2019-05-01 01:11] LABS: THYROID STIMULATING HORMONE 4.62 uIU/mL (0.36-3.74)
[2019-05-01] MEDS ORDERED: FUROSEMIDE 10 MG/ML 4ML VIAL IV STA (01:44)
[2019-05-01] MEDS ORDERED: FUROSEMIDE 10 MG/ML 4ML VIAL ONE ×2 (02:38→09:32)
[2019-05-01 04:55] LABS: APPEARANCE,URINE Clear (CLEAR); BILIRUBIN,URINE Negative (NEGATIVE); COLOR,URINE Yellow (YELLOW); GLUCOSE, URINE (UA) Negative (NEGATIVE); KETONES,URINE Negative (NEGATIVE); LEUKOCYTE ESTERASE ,URINE Negative (NEGATIVE); NITRATE,URINE Negative (NEGATIVE); OCCULT BLOOD,URINE Negative (NEGATIVE); PROTEIN,URINE Negative (NEGATIVE)
[2019-05-01 05:01] LABS: BASOPHILS % (AUTO) 1.5 % (0.0-5.0); EOSINOPHILS % (AUTO) 0.3 % (0.0-8.0); HEMATOCRIT 37.4 % (42-54); LYMPHOCYTES % (AUTO) 10.5 % (21.0-51.0); MEAN CORPUSCULAR HGB CONC 33.3 g/dL (32.0-36.0); MONOCYTES % (AUTO) 8.1 % (3.0-13.0); NEUTROPHILS % (AUTO) 79.6 % (40.0-77.0); NUCLEATED RED BLOOD CELLS 0.1 % (0.0-0.19); PLATELET COUNT (AUTO) 185 K/uL (130-400); WHITE BLOOD COUNT (AUTO) 9.7 K/uL (4.8-10.8)
[2019-05-01 05:07] LABS: AMPHET/METH SCREEN,URINE NEGATIVE (NEGATIVE); BARBITURATE SCREEN, URINE NEGATIVE (NEGATIVE); BENZODIAZEPINES SCREEN,URINE NEGATIVE (NEGATIVE); CANNABINOID SCREEN,URINE NEGATIVE (NEGATIVE); COCAINE SCREEN,URINE NEGATIVE (NEGATIVE); OPIATE SCREEN,URINE NEGATIVE (NEGATIVE); PHENCYCLIDINE SCREEN,URINE NEGATIVE (NEGATIVE)
[2019-05-01 05:17] LABS: MAGNESIUM 1.9 mg/dL (1.80-2.40)
[2019-05-01 05:20] LABS: ALBUMIN 2.8 g/dL (3.5-5.0); BILIRUBIN,TOTAL 3.7 mg/dL (0.2-1.0); CREATININE 1.3 mg/dL (0.5-1.5); POTASSIUM 3.4 mmol/L (3.5-5.1); TOTAL PROTEIN, SERUM 7.8 g/dL (6.0-8.3); TROPONIN I 0.1 ng/mL (0.00-0.06)
[2019-05-01 05:24] LABS: B-TYPE NATRIURETIC PEPTIDE 677 pg/mL (0-100)
[2019-05-01 07:59] LABS: INR 1.34 (0.85-1.15); PARTIAL THROMBOPLASTIN TIME 28.2 SEC (26.3-35.5)
[2019-05-01] MEDS: FAMOTIDINE 20MG TAB 20 MG TAB PO SCH ×2 (09:00→21:07)
[2019-05-01] MEDS: ASPIRIN 325 MG TABLET PO SCH (09:00)
[2019-05-01] MEDS ORDERED: FUROSEMIDE 10 MG/ML 4ML VIAL IV SCH (09:00)
[2019-05-01] MEDS ORDERED: METOPROLOL TARTRATE 25 MG TAB PO SCH (09:00)
[2019-05-01] MEDS ORDERED: ENOXAPARIN SODIUM 40 MG/0.4 ML SYRINGE SQ SCH (09:00)
[2019-05-01] MEDS ORDERED: FAMOTIDINE 20MG TAB 20 MG TAB ONE (09:31)
[2019-05-01] MEDS ORDERED: METOPROLOL TARTRATE 25 MG TAB ONE (09:32)
[2019-05-01] MEDS ORDERED: ASPIRIN 325 MG TABLET ONE (09:32)
[2019-05-01] MEDS: FUROSEMIDE 40 MG TABLET PO SCH ×2 (09:45→21:07)
--- NOTE | 2019-05-01 10:02 | NUR ---
ADMISSION Received pt to room 218 from ED via stretcher - PCCU status. Admission assessment/database completed.
[2019-05-01 10:13] VITALS: BP 128/95
[2019-05-01 11:34] VITALS: BP 101/75
[2019-05-01] MEDS ORDERED: METO-409 PO (12:42)
[2019-05-01] MEDS ORDERED: LOSA100T58 PO (12:42)
[2019-05-01] MEDS ORDERED: FURO40TA7 PO (12:42)
[2019-05-01] MEDS ORDERED: WARF5TAB76 PO (12:42)
[2019-05-01 13:27] LABS: TROPONIN I 0.12 ng/mL (0.00-0.06)
[2019-05-01] MEDS: POTASSIUM CHLORIDE 20 MEQ ERTAB PO PRN ×3 (14:35→21:09)
[2019-05-01 16:00] VITALS: BP 93/70
[2019-05-01 20:01] VITALS: BP 135/84
[2019-05-01] MEDS ORDERED: METOPROLOL TARTRATE 50 MG TAB PO SCH (21:00)
[2019-05-02] VITALS (7 sets, daily range): BP systolic 104–118; BP diastolic 71–83
[2019-05-02 04:18] LABS: BASOPHILS % (AUTO) 0.7 % (0.0-5.0); EOSINOPHILS % (AUTO) 0.3 % (0.0-8.0); HEMATOCRIT 38.5 % (42-54); LYMPHOCYTES % (AUTO) 9.4 % (21.0-51.0); MEAN CORPUSCULAR HEMOGLOBIN 32.7 pg (27.0-33.0); MEAN CORPUSCULAR HGB CONC 33.4 g/dL (32.0-36.0); MONOCYTES % (AUTO) 8.7 % (3.0-13.0); NEUTROPHILS % (AUTO) 80.9 % (40.0-77.0); NUCLEATED RED BLOOD CELLS 0.1 % (0.0-0.19); PLATELET COUNT (AUTO) 168 K/uL (130-400); RED BLOOD CELL COUNT(AUTO) 3.93 MIL/uL (4.50-6.20); RED CELL DISTRIBUTION WIDTH 18.3 % (11.0-15.5); WHITE BLOOD COUNT (AUTO) 12.1 K/uL (4.8-10.8)
[2019-05-02 04:27] LABS: CREATININE 1.8 mg/dL (0.5-1.5); POTASSIUM 4.4 mmol/L (3.5-5.1)
[2019-05-02 04:29] LABS: INR 1.55 (0.85-1.15); PARTIAL THROMBOPLASTIN TIME 28.6 SEC (26.3-35.5); PROTHROMBIN TIME 16.1 SEC (9.6-11.6)
--- NOTE | 2019-05-02 08:30 | NUR ---
DR. HARTLEY IN TO SEE PT. PLAN OF CARE DISCUSSED. NEW ORDERS RECEIVED AND NOTED.
[2019-05-02] MEDS ORDERED: METOPROLOL TARTRATE 25 MG TAB PO SCH ×2 (09:15→21:00)
[2019-05-02] MEDS: FAMOTIDINE 20MG TAB 20 MG TAB PO SCH ×2 (09:18→21:27)
[2019-05-02] MEDS: ASPIRIN 325 MG TABLET PO SCH (09:18)
[2019-05-02] MEDS: FUROSEMIDE 40 MG TABLET PO SCH (09:18)
--- NOTE | 2019-05-02 10:00 | NUR ---
Alice DURHAM, COMPLAINT INVESTIGATIONS OFFICER AT BEDSIDE TO SEE PT. MEDICATIONS/LABS/VS REVIEWED. NEW ORDERS RECEIVED AND NOTED.
--- NOTE | 2019-05-02 20:10 | NUR ---
ASSESSMENT AWAKE. DENIES PAIN. SITTING UP IN CARDIAC CHAIR. ASSESSMENT COMPLETED SEE FLOW SHEET. REMAINS ON FLUID RESTRICTION. ENCOURAGED TO CALL FOR WANTS OR NEEDS. Addendum: 05/02/19 at 2011 by MALIK JAUREGUI RN RN Amended: Links added.
[2019-05-02] MEDS: METOPROLOL TARTRATE 50 MG TAB PO SCH (21:00)
[2019-05-03 03:47] LABS: BASOPHILS % (AUTO) 1.1 % (0.0-5.0); EOSINOPHILS % (AUTO) 0.8 % (0.0-8.0); HEMATOCRIT 36.7 % (42-54); LYMPHOCYTES % (AUTO) 12.4 % (21.0-51.0); MEAN CORPUSCULAR HEMOGLOBIN 31.7 pg (27.0-33.0); MEAN CORPUSCULAR HGB CONC 32.5 g/dL (32.0-36.0); MEAN CORPUSCULAR VOLUME 97.4 fL (79-99); MONOCYTES % (AUTO) 10.3 % (3.0-13.0); NEUTROPHILS % (AUTO) 75.4 % (40.0-77.0); NUCLEATED RED BLOOD CELLS 0.1 % (0.0-0.19); PLATELET COUNT (AUTO) 177 K/uL (130-400); RED BLOOD CELL COUNT(AUTO) 3.77 MIL/uL (4.50-6.20); RED CELL DISTRIBUTION WIDTH 17.6 % (11.0-15.5); WHITE BLOOD COUNT (AUTO) 11.2 K/uL (4.8-10.8)
[2019-05-03 04:00] VITALS: BP 126/93
[2019-05-03 04:00] LABS: INR 1.61 (0.85-1.15); PARTIAL THROMBOPLASTIN TIME 29.2 SEC (26.3-35.5); PROTHROMBIN TIME 16.7 SEC (9.6-11.6)
[2019-05-03 04:02] LABS: ALBUMIN 2.6 g/dL (3.5-5.0); CREATININE 1.8 mg/dL (0.5-1.5); POTASSIUM 3.9 mmol/L (3.5-5.1)
[2019-05-03 04:43] LABS: B-TYPE NATRIURETIC PEPTIDE 773 pg/mL (0-100)
[2019-05-03 07:48] VITALS: BP 137/83
[2019-05-03] MEDS: ASPIRIN 325 MG TABLET PO SCH (08:35)
[2019-05-03] MEDS: METOPROLOL TARTRATE 50 MG TAB PO SCH ×2 (08:35→20:45)
[2019-05-03] MEDS: FAMOTIDINE 20MG TAB 20 MG TAB PO SCH ×2 (08:35→20:45)
--- NOTE | 2019-05-03 09:14 | NUR ---
DC PLAN VISITED WITH PATIENT. PATIENT LIVES ALONE. INDEPENDENT ABLE TO PERFORM ADL'S. PATIENT HAS NO SERVICES OR DME'S. PATIENT GOES TO CLINIC AT [facility] AND [facility]. EXPLAINED THAT HE HAS TO GET TESTING FOR COUMADIN. AFTER MUCH DISCUSSION VERBALIZED UNDERSTANDING. GAVE LOW INCOME CLINIC INFO AND WERE HE CAN GO GET LAB DRAW. PATIENT HAS SOCIAL SECURITY DISABILITY CHECK EXPLAINED THAT HE NEEDS TO KEEP SOME OF IT TO PAY FOR TESTING. SAID HE WOULD TRY. Addendum: 05/03/19 at 0916 by JOY DESOUZA RN CM Amended: Links added.
[2019-05-03] MEDS ORDERED: TORSEMIDE 20 MG TAB PO SCH (09:59)
[2019-05-03 11:32] VITALS: BP 103/78
[2019-05-03 15:42] VITALS: BP 118/76
[2019-05-03 19:19] VITALS: BP 126/48
[2019-05-03 23:17] VITALS: BP 104/71
[2019-05-04 03:46] VITALS: BP 158/84
[2019-05-04 04:41] LABS: BASOPHILS % (AUTO) 1.3 % (0.0-5.0); EOSINOPHILS % (AUTO) 0.6 % (0.0-8.0); HEMATOCRIT 37.2 % (42-54); LYMPHOCYTES % (AUTO) 14.2 % (21.0-51.0); MEAN CORPUSCULAR HEMOGLOBIN 33.2 pg (27.0-33.0); MEAN CORPUSCULAR HGB CONC 34.1 g/dL (32.0-36.0); MEAN CORPUSCULAR VOLUME 97.5 fL (79-99); MONOCYTES % (AUTO) 9.4 % (3.0-13.0); NEUTROPHILS % (AUTO) 74.5 % (40.0-77.0); NUCLEATED RED BLOOD CELLS 0.1 % (0.0-0.19); PLATELET COUNT (AUTO) 164 K/uL (130-400); RED BLOOD CELL COUNT(AUTO) 3.81 MIL/uL (4.50-6.20); RED CELL DISTRIBUTION WIDTH 18.4 % (11.0-15.5); WHITE BLOOD COUNT (AUTO) 7.2 K/uL (4.8-10.8)
[2019-05-04 04:45] LABS: CREATININE 1.6 mg/dL (0.5-1.5); POTASSIUM 3.4 mmol/L (3.5-5.1)
[2019-05-04 04:46] LABS: INR 1.55 (0.85-1.15); PARTIAL THROMBOPLASTIN TIME 29.6 SEC (26.3-35.5); PROTHROMBIN TIME 16.1 SEC (9.6-11.6)
[2019-05-04 07:00] VITALS: BP 129/95
[2019-05-04] MEDS: ASPIRIN 325 MG TABLET PO SCH (08:44)
[2019-05-04] MEDS: FAMOTIDINE 20MG TAB 20 MG TAB PO SCH (08:45)
[2019-05-04] MEDS: METOPROLOL TARTRATE 50 MG TAB PO SCH (08:45)
--- NOTE | 2019-05-04 08:49 | NUR ---
EVA MARTÍNEZ SPOKE TO LEAH REGARDING PATIENT. LET HER KNOW THAT BOTH I THE NURSE AND CARDIO HAD ALL TALKED TO PATIENT REGARDING COUMADIN AND ELIQUIS. PATIENT DOES HAVE SS CHECK THAT HE GETS HE JUST DOES NOT MANAGE MONEY WELL. SAID HE WOULD TRY TO SEE DOCTOR BUT THAT IT GETS EXPENSIVE. PATIENT GIVEN FORM TO GET 90 DAY SUPPLY OF ELIQUIS PATIENT DID NOT SEEM VERY INTERESTED IN INFORMATION. Addendum: 05/07/19 at 0852 by JOY DESOUZA RN CM Amended: Links added.
[2019-05-04] MEDS ORDERED: TORSEMIDE 20 MG TAB PO SCH ×2 (09:00→11:15)
[2019-05-04] MEDS: DIGOXIN 250 MCG TABLET PO SCH ×2 (10:45→15:10)
[2019-05-04 11:00] VITALS: BP 120/90
[2019-05-04] MEDS: POTASSIUM CHLORIDE 20 MEQ ERTAB PO PRN ×2 (12:40→15:08)
[2019-05-04] MEDS ORDERED: DIGO125T87 PO ×2 (15:32)
[2019-05-04 16:00] VITALS: BP 132/70
[2019-05-05] MEDS ORDERED: TORSEMIDE 20 MG TAB PO SCH (09:00)
== END 2019-05-04 18:45 | disposition home or self-care (01) | DRG 308 ==
LOC: EDH 19:42 → EDHIP 19:43 → 2CH 05-01 09:56 → 2DH 05-03 19:34
PROVIDERS: ADMIT Internal Medicine; ATTEND Internal Medicine
DX: I48.91 Unspecified atrial fibrillation (principal); I50.23 Acute on chronic systolic (congestive) heart failure; E87.1 Hypo-osmolality and hyponatremia; R18.8 Other ascites; I42.6 Alcoholic cardiomyopathy; I42.0 Dilated cardiomyopathy; I48.92 Unspecified atrial flutter; I11.0 Hypertensive heart disease with heart failure; F32.9 Major depressive disorder, single episode, unspecified; E66.9 Obesity, unspecified; E78.5 Hyperlipidemia, unspecified; E87.6 Hypokalemia; G47.33 Obstructive sleep apnea (adult) (pediatric); K76.0 Fatty (change of) liver, not elsewhere classified; F41.9 Anxiety disorder, unspecified; N19 Unspecified kidney failure; Z79.01 Long term (current) use of anticoagulants; Z79.899 Other long term (current) drug therapy; Z82.49 Family history of ischemic heart disease and other diseases of the circulatory system; Z86.74 Personal history of sudden cardiac arrest; Z87.891 Personal history of nicotine dependence; Z91.19 Patient's noncompliance with other medical treatment and regimen; Z68.35 Body mass index [BMI] 35.0-35.9, adult; Z83.3 Family history of diabetes mellitus; Z90.49 Acquired absence of other specified parts of digestive tract
CPT/HCPCS: 36415; 71045; 74176; 80048; 80053; 80061; 80305; 81003; 82040; 82550; 82948; 83735; 83874; 83880; 84443; 84484; 85025; 85610; 85730; 93005; 99291; G0378; J1160; J1940; J3490

== ENCOUNTER 2020-01-03 10:06 | Inpatient (IN) | payer SELFPAY ==
[~2020-01-03] VITALS: Ht 172.7 cm; Wt 93.3 kg
[~2020-01-03 10:06] MED LIST changes: -CEFD300C3 PO; -CETI10TA57 PO; +DIGO125T71 PO; -ESCI20TA36 PO; +FURO40TA7 PO; -FURO80TA3 PO; +LOSA100T58 PO; -LOSA50TA2 PO; +METO-409 PO; -METO100T14 PO; -WARF-67 PO; -WARF2.5T85 PO
[2020-01-03 10:42] LABS: EOSINOPHILS % (AUTO) 1.3 % (0.0-8.0); HEMATOCRIT 35.1 % (42-54); LYMPHOCYTES % (AUTO) 9.6 % (21.0-51.0); MEAN CORPUSCULAR HEMOGLOBIN 32.2 pg (27.0-33.0); MEAN CORPUSCULAR HGB CONC 32.2 g/dL (32.0-36.0); NEUTROPHILS % (AUTO) 77.8 % (40.0-77.0); PLATELET COUNT (AUTO) 263 K/uL (130-400); RED BLOOD CELL COUNT(AUTO) 3.51 MIL/uL (4.50-6.20); RED CELL DISTRIBUTION WIDTH 14.9 % (11.0-15.5); WHITE BLOOD COUNT (AUTO) 6.7 K/uL (4.8-10.8)
[2020-01-03] MEDS ORDERED: FUROSEMIDE 10 MG/ML 4ML VIAL ONE (10:51)
[2020-01-03] MEDS ORDERED: ONDANSETRON HCL 4 MG/2 ML VIAL ONE (10:51)
[2020-01-03] MEDS ORDERED: CEFTRIAXONE SODIUM 2 GM VIAL ONE (10:52)
[2020-01-03] MEDS ORDERED: ALBUMIN (HUMAN) 25% 100 ML IV ONE ×2 (10:53→16:51)
[2020-01-03 11:05] LABS: B-TYPE NATRIURETIC PEPTIDE 1430 pg/mL (0-100); INR 1.42 (0.85-1.15); PARTIAL THROMBOPLASTIN TIME 30.3 SEC (26.3-35.5); PROTHROMBIN TIME 14.7 SEC (9.6-11.6)
[2020-01-03 11:09] LABS: POTASSIUM 4.1 mmol/L (3.5-5.1)
[2020-01-03 11:13] LABS: ALBUMIN 3.2 g/dL (3.5-5.0); BILIRUBIN,TOTAL 1.8 mg/dL (0.2-1.0); TOTAL PROTEIN, SERUM 8.8 g/dL (6.0-8.3)
[2020-01-03 13:51] LABS: AMPHET/METH SCREEN,URINE NEGATIVE (NEGATIVE); BARBITURATE SCREEN, URINE NEGATIVE (NEGATIVE); BENZODIAZEPINES SCREEN,URINE NEGATIVE (NEGATIVE); CANNABINOID SCREEN,URINE NEGATIVE (NEGATIVE); COCAINE SCREEN,URINE POSITIVE (NEGATIVE); OPIATE SCREEN,URINE NEGATIVE (NEGATIVE); PHENCYCLIDINE SCREEN,URINE NEGATIVE (NEGATIVE)
[2020-01-03] MEDS ORDERED: ONDANSETRON HCL 4 MG/2 ML VIAL IV PRN (15:00)
[2020-01-03] MEDS ORDERED: NITROGLYCERIN 0.4 MG SL TAB SL PRN (15:00)
[2020-01-03] MEDS ORDERED: LACTULOSE 20 GM/30 ML UDCUP PO PRN (15:00)
[2020-01-03] MEDS ORDERED: ACETAMINOPHEN 325 MG TAB PO PRN (15:00)
--- NOTE | 2020-01-03 15:30 | NUR ---
U/S GD PARACENTESIS PROCEDURE PERFORMED BY DR. WEBB. PUNCTURE SITE LEFT LOWER QUADRANT OF ABDOMEN AND PATIENT TOLERATED PROCEDURE WELL. TOTAL REMOVED 10 LITERS OF CLOUDY YELLOW FLUID. END OF PROCEDURE AT 1615. CATHETER REMOVED AND DRESSING APPLIED. NO BLEEDING NOTED. REPORT CALLED TO PRESTON GARCIA. PT TRANSPORTED TO ED RM 20 VIA BED, STABLE, AAO X3 WITH NO C/O PAIN. SPECIMEN SENT TO LAB.
[2020-01-03 17:05] VITALS: BP 136/97
[2020-01-03] MEDS ORDERED: WARF5TAB8 PO (18:06)
[2020-01-03] MEDS ORDERED: LISI-617 PO (18:06)
[2020-01-03] MEDS ORDERED: GABA-531 PO (18:06)
[2020-01-03] MEDS ORDERED: ASPI-555 PO (18:06)
[2020-01-03] MEDS ORDERED: DIGO62.52 PO (18:06)
[2020-01-03] MEDS ORDERED: FURO40TA5 PO (18:06)
[2020-01-03 18:59] LABS: APPEARANCE BODY FLUID SLIGHTLY CLOUDY (CLEAR); BODY FLUID WBC 58 /cu. mm.; COLOR,BODY FLUID YELLOW (LT YELLOW); SPECIMENTYPE,BODY FLUID ASCITES; TOTAL VOLUME,BODY FLUID 10000 mL
[2020-01-03 19:00] LABS: BODY FLUID RBC 550 /cu. mm.
[2020-01-03 19:24] LABS: BF BASOPHIL 1 %; BF LYMPHOCYTE 12 %; BF MESOTHELIAL 50 %; BF MONOCYTE 8 %
[2020-01-03 20:00] VITALS: BP 116/90
[2020-01-03] MEDS: CEFTRIAXONE SODIUM 1 GM IV SCH (21:24)
[2020-01-03] MEDS: FAMOTIDINE 20MG TAB 20 MG TAB PO SCH (21:24)
[2020-01-03] MEDS: FUROSEMIDE 10 MG/ML 4ML VIAL IVP SCH (21:24)
[2020-01-03] MEDS: NITROGLYCERIN 1GM/1 INCH PACKET TD SCH (22:01)
[2020-01-04] VITALS: BP 111/83
[2020-01-04 03:59] VITALS: BP 109/74
[2020-01-04 05:40] LABS: BASOPHILS % (AUTO) 1.6 % (0.0-5.0); EOSINOPHILS % (AUTO) 1.6 % (0.0-8.0); HEMATOCRIT 30.2 % (42-54); LYMPHOCYTES % (AUTO) 10.5 % (21.0-51.0); MEAN CORPUSCULAR HEMOGLOBIN 32.2 pg (27.0-33.0); MEAN CORPUSCULAR HGB CONC 32.8 g/dL (32.0-36.0); MEAN CORPUSCULAR VOLUME 98.4 fL (79-99); MONOCYTES % (AUTO) 13.6 % (3.0-13.0); NEUTROPHILS % (AUTO) 72.4 % (40.0-77.0); PLATELET COUNT (AUTO) 229 K/uL (130-400); RED BLOOD CELL COUNT(AUTO) 3.07 MIL/uL (4.50-6.20); RED CELL DISTRIBUTION WIDTH 14.6 % (11.0-15.5); WHITE BLOOD COUNT (AUTO) 6.4 K/uL (4.8-10.8)
[2020-01-04 06:18] LABS: ALBUMIN 2.7 g/dL (3.5-5.0); BILIRUBIN,TOTAL 2.1 mg/dL (0.2-1.0); CREATININE 1.2 mg/dL (0.5-1.5); POTASSIUM 3.6 mmol/L (3.5-5.1); TOTAL PROTEIN, SERUM 7.2 g/dL (6.0-8.3)
[2020-01-04] MEDS: NITROGLYCERIN 1GM/1 INCH PACKET TD SCH ×3 (06:23→23:00)
[2020-01-04 08:03] VITALS: BP 109/62
[2020-01-04] MEDS: CEFTRIAXONE SODIUM 1 GM IV SCH ×2 (10:02→20:34)
[2020-01-04] MEDS: FUROSEMIDE 10 MG/ML 4ML VIAL IVP SCH ×2 (10:04→20:34)
[2020-01-04] MEDS: LOSARTAN 100 MG TABLET PO SCH (10:05)
[2020-01-04] MEDS: AMLODIPINE BESYLATE 5 MG TAB PO SCH (10:05)
[2020-01-04] MEDS: SPIRONOLACTONE 25 MG TAB PO SCH (10:05)
[2020-01-04] MEDS: FAMOTIDINE 20MG TAB 20 MG TAB PO SCH ×2 (10:05→20:34)
[2020-01-04] MEDS: ENOXAPARIN SODIUM 30 MG/0.3 ML SQ SCH (10:06)
[2020-01-04 12:00] VITALS: BP 93/50
--- NOTE | 2020-01-04 13:12 | NUR ---
INITIAL Patient lives alone. Emergency contact is brother, Bola Christy, [phone] and sister, Bria Knutson, [phone]. No home health but does have PHC with [facility] X 21.5 hours a week. Patient needs help with ADL's and does not drive. PCP is Dr. Hema Fleming. Pharmacy is [facility] located on [address]. DCP is home. Patient has no insurance or benefits. He is a [place] citizen and has worked in the [place]. Patient was provided with community resources for post hospitalization follow up. Patient was also provided with Good RX card for prescriptions and educated on [facility] $4 medication program and [facility] $5 medication program. Patient is being assisted by [employer] for financial matters. Addendum: 01/04/20 at 1315 by CHRISTINA VITAL SS Amended: Links added.
--- NOTE | 2020-01-04 13:15 | NUR ---
Substance Abuse & Anxiety Patient is positive for cocaine and alcohol. Patient admits to drinking 25 oz beers daily or every other day. He states he has been drinking since age 17 year of age. Patient states he has been in substance abuse treatment in 2009 or 2010 for a 15 day program. He stated that he remained sober a few months after being discharged from treatment. Patient also states that the longest he has remained sober has been 9 months in 2009. Patient was provided with community resources for substance abuse counseling. He was receptive. Patient was also provided with list of Alcoholic Anonymous meetings in the area. Patient stated that he often suffers from anxiety attacks and is not sure what triggers them. He stated that he watches TV or listens to music to help him calm down. Patient stated that he used to go to [facility] for treatment for the anxiety and depression but has not gone in a while. Contact information provided for [facility]. Patient denies suicidal/homicidal ideations at this time.
[2020-01-04] MEDS ORDERED: ALBUMIN (HUMAN) 25% 50 ML IV SCH (14:00)
[2020-01-04] MEDS ORDERED: ACETAMINOPHEN EXTRA STRENGTH 500 MG TABLET PO PRN (14:00)
[2020-01-04 16:00] VITALS: BP 93/56
[2020-01-04] MEDS: DIGOXIN 125 MCG TABLET PO SCH (16:32)
[2020-01-04 20:10] VITALS: BP 115/68
[2020-01-05] VITALS (8 sets, daily range): BP systolic 101–149; BP diastolic 55–86
[2020-01-05] MEDS: NITROGLYCERIN 1GM/1 INCH PACKET TD SCH ×3 (04:49→23:30)
[2020-01-05 05:12] LABS: BASOPHILS % (AUTO) 1.1 % (0.0-5.0); EOSINOPHILS % (AUTO) 3.5 % (0.0-8.0); HEMATOCRIT 32.1 % (42-54); LYMPHOCYTES % (AUTO) 12.5 % (21.0-51.0); MEAN CORPUSCULAR HEMOGLOBIN 31.9 pg (27.0-33.0); MEAN CORPUSCULAR HGB CONC 32.1 g/dL (32.0-36.0); MEAN CORPUSCULAR VOLUME 99.4 fL (79-99); MONOCYTES % (AUTO) 12.5 % (3.0-13.0); NEUTROPHILS % (AUTO) 70.2 % (40.0-77.0); PLATELET COUNT (AUTO) 220 K/uL (130-400); RED BLOOD CELL COUNT(AUTO) 3.23 MIL/uL (4.50-6.20); RED CELL DISTRIBUTION WIDTH 14.5 % (11.0-15.5); WHITE BLOOD COUNT (AUTO) 5.7 K/uL (4.8-10.8)
[2020-01-05 05:25] LABS: ALBUMIN 2.5 g/dL (3.5-5.0); BILIRUBIN,TOTAL 1.2 mg/dL (0.2-1.0); CREATININE 1.1 mg/dL (0.5-1.5); POTASSIUM 3.2 mmol/L (3.5-5.1)
[2020-01-05] MEDS: CEFTRIAXONE SODIUM 1 GM IV SCH ×2 (06:26→20:25)
[2020-01-05] MEDS: FAMOTIDINE 20MG TAB 20 MG TAB PO SCH ×2 (09:36→20:25)
[2020-01-05] MEDS: LOSARTAN 100 MG TABLET PO SCH (09:36)
[2020-01-05] MEDS: FUROSEMIDE 10 MG/ML 4ML VIAL IVP SCH ×2 (09:36→20:25)
[2020-01-05] MEDS: SPIRONOLACTONE 25 MG TAB PO SCH (09:36)
[2020-01-05] MEDS: AMLODIPINE BESYLATE 5 MG TAB PO SCH (09:38)
[2020-01-05] MEDS: ENOXAPARIN SODIUM 30 MG/0.3 ML SQ SCH (09:39)
[2020-01-05] MEDS ORDERED: LIDOCAINE HCL-MPF 1% 2ML VIAL IV PRN (14:45)
[2020-01-05] MEDS ORDERED: POTASSIUM CHLORIDE 10% ELIXIR 20 MEQ/15 ML UDCUP PO PRN (14:45)
[2020-01-05] MEDS ORDERED: MAGNESIUM 2GM PREMIX 50ML 50 ML IV PRN (14:45)
[2020-01-05] MEDS ORDERED: POTASSIUM CHLORIDE 20MEQ/100ML 100 ML IV PRN (14:45)
[2020-01-05] MEDS: LACTULOSE 20 GM/30 ML UDCUP PO SCH ×2 (15:40→20:25)
[2020-01-05] MEDS: DIGOXIN 125 MCG TABLET PO SCH (15:41)
[2020-01-05] MEDS: POTASSIUM CHLORIDE 20 MEQ ERTAB PO PRN ×3 (17:21→23:31)
--- NOTE | 2020-01-05 20:25 | NUR ---
MEDS SHIFT ASSESSMENT DONE, PLEASE REFER TO CHART. DUE MEDS ADMINISTERED, TOLERATED WELL. KEPT RESTED AND COMFORTABLE IN BED. CALL LIGHT WITHIN REACH. WILL MONITOR PT. Addendum: 01/06/20 at 0020 by PARAG ENGEL RN RN Amended: Links added.
--- NOTE | 2020-01-06 01:15 | NUR ---
ROUNDS PT RESTING WELL, FAIRLY ASLEEP WITH RESPIRATIONS EVEN AND UNLABORED. NO NOTED DISTRESS. KEPT UNDISTURBED FOR NOW WILL MONITOR PT. CALL LIGHT WITHIN REACH. WILL MONITOR PT.
[2020-01-06] MEDS: LACTULOSE 20 GM/30 ML UDCUP PO SCH ×2 (02:58→08:21)
--- NOTE | 2020-01-06 03:00 | NUR ---
BM PCP ASSISTED PT TO THE RESTROOM AND WAS ABLE TO HAVE A BM. PLACED BACK IN BED AND POSITIONED COMFORTABLY. DUE MEDS ADMINISTERED, TOLERATED WELL. PRUNE JUICE GIVEN. CALL LIGHT WITHIN REACH. ENCOURAGED TO GO BACK TO SLEEP.
[2020-01-06 03:11] VITALS: BP 105/67
[2020-01-06 05:53] LABS: BASOPHILS % (AUTO) 0.9 % (0.0-5.0); EOSINOPHILS % (AUTO) 5.2 % (0.0-8.0); MEAN CORPUSCULAR HEMOGLOBIN 31.8 pg (27.0-33.0); MEAN CORPUSCULAR HGB CONC 32.4 g/dL (32.0-36.0); MEAN CORPUSCULAR VOLUME 97.9 fL (79-99); MONOCYTES % (AUTO) 12.6 % (3.0-13.0); NEUTROPHILS % (AUTO) 69.9 % (40.0-77.0); PLATELET COUNT (AUTO) 244 K/uL (130-400); RED BLOOD CELL COUNT(AUTO) 3.37 MIL/uL (4.50-6.20); RED CELL DISTRIBUTION WIDTH 14.5 % (11.0-15.5); WHITE BLOOD COUNT (AUTO) 5.4 K/uL (4.8-10.8)
[2020-01-06] MEDS: NITROGLYCERIN 1GM/1 INCH PACKET TD SCH (05:54)
[2020-01-06 06:10] LABS: ALBUMIN 2.5 g/dL (3.5-5.0); CREATININE 1.1 mg/dL (0.5-1.5); POTASSIUM 3.6 mmol/L (3.5-5.1); TOTAL PROTEIN, SERUM 7.4 g/dL (6.0-8.3)
--- NOTE | 2020-01-06 06:35 | NUR ---
KCL PT' POTASSIUM RE-CHECK=3.6. MEDICATED WITH ELIXER, GIVEN WITH APPLE JUICE, TOLERATED WELL. FOR MORE CARE.
[2020-01-06] MEDS ORDERED: NITROGLYCERIN 1GM/1 INCH PACKET TD SCH (06:45)
[2020-01-06 08:00] VITALS: BP 117/71
[2020-01-06] MEDS: CEFTRIAXONE SODIUM 1 GM IV SCH (08:19)
[2020-01-06] MEDS: FAMOTIDINE 20MG TAB 20 MG TAB PO SCH (08:19)
[2020-01-06] MEDS: LOSARTAN 100 MG TABLET PO SCH (08:20)
[2020-01-06] MEDS: SPIRONOLACTONE 25 MG TAB PO SCH (08:20)
[2020-01-06] MEDS: AMLODIPINE BESYLATE 5 MG TAB PO SCH (08:20)
[2020-01-06] MEDS: ENOXAPARIN SODIUM 30 MG/0.3 ML SQ SCH (08:21)
[2020-01-06] MEDS ORDERED: SPIR25TA6 PO (10:26)
--- NOTE | 2020-01-06 10:34 | NUR ---
Kahn catheter d/c as per Dr Mansoor Trivedi orders, patient tolerated well.
[2020-01-06] MEDS ORDERED: FLU VACC QS2019-20 36MOS UP/PF 60 MCG/0.5 ML ML IM ONE (11:30)
[2020-01-06] MEDS ORDERED: FLU VACC QS2019-20 36MOS UP/PF 60 MCG/0.5 ML ML IM SCH (11:30)
--- NOTE | 2020-01-06 11:30 | NUR ---
PATIENT VOIDED 70 CC.
[2020-01-06 11:38] VITALS: BP 109/74
--- NOTE | 2020-01-06 12:00 | NUR ---
DISCHARGE PATIENT GIVEN DISCHARGE INSTRUCTIONS AND EDUCATION ON FOLLOW UP APPOINTMENTS AND NEW PRESCRIBED MEDICATION. PATIENT VERBALIZED UNDERSTANDING OF ALL EDUCATION GIVEN VIA TEACH BACK. IV DISCONTINUED, CATHETER INTACT. NO DISTRESS NOTED UPON DISCHARGE. ALL BELONGINGS TAKEN WITH,
== END 2020-01-06 11:45 | disposition home or self-care (01) | DRG 441 ==
LOC: EDH 10:06 → EDHIP 10:07 → 3DH 17:05
PROVIDERS: ADMIT Internal Medicine; ATTEND Internal Medicine
PROC: 0W9G3ZZ Drainage of Peritoneal Cavity, Percutaneous Approach (ICD-10-PCS; principal; 2020-01-03)
PROC: 3E02340 Introduction of Influenza Vaccine into Muscle, Percutaneous Approach (ICD-10-PCS; 2020-01-03)
DX: K72.90 Hepatic failure, unspecified without coma (principal); I50.23 Acute on chronic systolic (congestive) heart failure; G93.41 Metabolic encephalopathy; I31.3 Pericardial effusion (noninflammatory); J98.11 Atelectasis; J91.8 Pleural effusion in other conditions classified elsewhere; N17.9 Acute kidney failure, unspecified; K70.31 Alcoholic cirrhosis of liver with ascites; I11.0 Hypertensive heart disease with heart failure; E66.9 Obesity, unspecified; Z68.31 Body mass index [BMI] 31.0-31.9, adult; E78.5 Hyperlipidemia, unspecified; F10.20 Alcohol dependence, uncomplicated; I08.1 Rheumatic disorders of both mitral and tricuspid valves; I27.20 Pulmonary hypertension, unspecified; I48.91 Unspecified atrial fibrillation; N50.89 Other specified disorders of the male genital organs; F19.10 Other psychoactive substance abuse, uncomplicated; Z86.19 Personal history of other infectious and parasitic diseases; Z91.19 Patient's noncompliance with other medical treatment and regimen; Z23 Encounter for immunization; Z83.3 Family history of diabetes mellitus; Z82.49 Family history of ischemic heart disease and other diseases of the circulatory system
CPT/HCPCS: 36415; 49083; 71045; 74176; 80053; 80162; 80305; 82140; 82550; 82948; 83605; 83690; 83880; 84484; 85025; 85610; 85730; 87040; 87071; 87205; 89051; 93005; 93306; 93356; 99291; G0378; G0480; J0696; J1650; J1940; J2405; J3480; J3490; P9046; Q2035

== ENCOUNTER 2020-04-07 01:33 | Inpatient (IN) | payer MEDICARE, OTHER ==
[~2020-04-07] VITALS: Ht 170.2 cm; Wt 94.1 kg
[~2020-04-07 01:33] MED LIST changes: -AMLO10TA4 PO; +ASPI-556 PO; -DIGO125T71 PO; +DIGO62.52 PO; +FURO40TA5 PO; -FURO40TA7 PO; +GABA-531 PO; +LISI-617 PO; -LOSA100T58 PO; -METO-409 PO; -NITR0.4T50 SL; -SPIR25TA PO; +SPIR25TA6 PO; +WARF5TAB8 PO
[2020-04-07 02:16] LABS: BASOPHILS % (AUTO) 1.6 % (0.0-5.0); EOSINOPHILS % (AUTO) 1.8 % (0.0-8.0); HEMATOCRIT 34.2 % (42-54); MEAN CORPUSCULAR HEMOGLOBIN 30.2 pg (27.0-33.0); MEAN CORPUSCULAR HGB CONC 33.3 g/dL (32.0-36.0); MEAN CORPUSCULAR VOLUME 90.5 fL (79-99); MONOCYTES % (AUTO) 11.7 % (3.0-13.0); NEUTROPHILS % (AUTO) 67.7 % (40.0-77.0); PLATELET COUNT (AUTO) 214 K/uL (130-400); RED BLOOD CELL COUNT(AUTO) 3.78 MIL/uL (4.50-6.20); RED CELL DISTRIBUTION WIDTH 14.9 % (11.0-15.5); WHITE BLOOD COUNT (AUTO) 4.9 K/uL (4.8-10.8)
[2020-04-07 02:26] LABS: POTASSIUM 3.1 mmol/L (3.5-5.1)
[2020-04-07 02:29] LABS: INR 1.18 (0.85-1.15); PARTIAL THROMBOPLASTIN TIME 29.8 SEC (26.3-35.5); PROTHROMBIN TIME 12.7 SEC (9.6-11.6)
[2020-04-07 02:30] LABS: ALBUMIN 3.2 g/dL (3.5-5.0); BILIRUBIN,TOTAL 1.1 mg/dL (0.2-1.0); TOTAL PROTEIN, SERUM 8.5 g/dL (6.0-8.3)
[2020-04-07 02:53] LABS: APPEARANCE,URINE Clear (CLEAR); BILIRUBIN,URINE Negative (NEGATIVE); COLOR,URINE Yellow (YELLOW); GLUCOSE, URINE (UA) Negative (NEGATIVE); KETONES,URINE Negative (NEGATIVE); LEUKOCYTE ESTERASE ,URINE Trace (NEGATIVE); NITRATE,URINE Negative (NEGATIVE); OCCULT BLOOD,URINE Negative (NEGATIVE); PH,URINE 5.5 (5.0-8.0); PROTEIN,URINE Negative (NEGATIVE)
[2020-04-07 03:01] LABS: AMPHET/METH SCREEN,URINE NEGATIVE (NEGATIVE); BARBITURATE SCREEN, URINE NEGATIVE (NEGATIVE); BENZODIAZEPINES SCREEN,URINE NEGATIVE (NEGATIVE); CANNABINOID SCREEN,URINE NEGATIVE (NEGATIVE); COCAINE SCREEN,URINE POSITIVE (NEGATIVE); OPIATE SCREEN,URINE NEGATIVE (NEGATIVE); PHENCYCLIDINE SCREEN,URINE NEGATIVE (NEGATIVE)
[2020-04-07 03:02] LABS: BACTERIA,URINE None Seen /HPF (None Seen); RBC,URINE None Seen /HPF (0-1); SQUAMOUS EPITHELIAL CELL,UR Rare /HPF (0-2); WBC,URINE 0-1 /HPF (0-1)
[2020-04-07] MEDS ORDERED: POTASSIUM BICARB/CIT AC 25 MEQ TABLET.EFF ONE (03:23)
[2020-04-07] MEDS ORDERED: POTASSIUM CHLORIDE 20MEQ/100ML 100 ML IV PRN (04:00)
[2020-04-07] MEDS ORDERED: ONDANSETRON HCL 4 MG/2 ML VIAL IV PRN (04:00)
[2020-04-07] MEDS ORDERED: MAGNESIUM 2GM PREMIX 50ML 50 ML IV PRN (04:00)
[2020-04-07] MEDS ORDERED: LIDOCAINE HCL-MPF 1% 2ML VIAL IV PRN (04:00)
[2020-04-07] MEDS ORDERED: METOPROLOL TARTRATE 1 MG/ML 5ML VIAL IV PRN (04:00)
[2020-04-07] MEDS ORDERED: LORAZEPAM 2 MG/ML 1 ML VIAL IVP PRN (04:45)
[2020-04-07] MEDS ORDERED: METRONIDAZOLE 500MG/100ML BAG 100 ML ONE ×2 (04:53→15:54)
[2020-04-07] MEDS ORDERED: CHLORDIAZEPOXIDE HCL 25 MG CAP PO PRN (05:00)
[2020-04-07] MEDS: LEVOFLOXACIN 500 MG/D5W 100 ML 100 ML IV SCH (05:30)
[2020-04-07] MEDS ORDERED: LEVOFLOXACIN 500 MG/D5W 100 ML 100 ML ONE (05:44)
[2020-04-07] MEDS: METRONIDAZOLE 500MG/100ML BAG 100 ML IV SCH ×3 (06:00→21:40)
[2020-04-07 07:33] LABS: BASOPHILS % (AUTO) 1.2 % (0.0-5.0); HEMATOCRIT 33.5 % (42-54); LYMPHOCYTES % (AUTO) 14.9 % (21.0-51.0); MEAN CORPUSCULAR HEMOGLOBIN 29.8 pg (27.0-33.0); MEAN CORPUSCULAR HGB CONC 32.5 g/dL (32.0-36.0); MEAN CORPUSCULAR VOLUME 91.5 fL (79-99); MONOCYTES % (AUTO) 12.7 % (3.0-13.0); PLATELET COUNT (AUTO) 205 K/uL (130-400); RED BLOOD CELL COUNT(AUTO) 3.66 MIL/uL (4.50-6.20); WHITE BLOOD COUNT (AUTO) 4.9 K/uL (4.8-10.8)
[2020-04-07 08:02] LABS: ALANINE AMINOTRANSFERASE 12 U/L (12-78); ALBUMIN 3.1 g/dL (3.5-5.0); ASPARTATE AMINOTRANSFERASE 27 U/L (10-37); BILIRUBIN,DIRECT 0.7 mg/dL (0.0-0.3); BILIRUBIN,TOTAL 1.3 mg/dL (0.2-1.0); CARBON DIOXIDE 29 mmol/L (21-32); CHLORIDE 97 mmol/L (101-111); CREATINE KINASE, TOTAL 113 U/L (21-232); CREATININE 0.9 mg/dL (0.5-1.5); GLOMERULAR FILTR. RATE CALC 93 mL/min (>60); GLUCOSE,RANDOM 85 mg/dL (70-105); MYOGLOBIN 50 ng/mL (10-92); POTASSIUM 3.4 mmol/L (3.5-5.1); SODIUM SERUM 132 mmol/L (136-145); THYROID STIMULATING HORMONE 3.05 uIU/mL (0.36-3.74); TOTAL PROTEIN, SERUM 8.3 g/dL (6.0-8.3); TROPONIN I < 0.04 ng/mL (0.00-0.06); UREA NITROGEN, BLOOD 8 mg/dL (7-18)
[2020-04-07] MEDS ORDERED: CHLORDIAZEPOXIDE HCL 25 MG CAP ONE (08:16)
[2020-04-07] MEDS ORDERED: FAMOTIDINE/PF 20 MG/2 ML VIAL IV ONE (08:16)
[2020-04-07 08:21] LABS: AMMONIA 22 umol/L (11-32)
[2020-04-07] MEDS: M.V.I. IV [ADULT] 10 ML, FOLIC ACID 1 MG, THIAMINE HCL 100 MG in SODIUM CHLORIDE 0.9% 1... IV SCH (09:00)
[2020-04-07] MEDS: FAMOTIDINE/PF 20 MG/2 ML VIAL IV SCH ×2 (09:00→21:40)
--- NOTE | 2020-04-07 09:10 | NUR ---
U/S GUIDED PARACENTESIS PROCEDURE PERFORMED BY DR. HERNANDEZ. PUNCTURE SITE LEFT UPPER QUADRANT OF ABDOMEN AND PATIENT TOLERATED PROCEDURE WELL. TOTAL REMOVED 12.0LITERS OF CLOUDY YELLOW ASCITES FLUID. END OF PROCEDURE AT 0950. CATHETER REMOVED AND DRESSING APPLIED. NO BLEEDING NOTED. ORDERED ALBUMIN 25% 50 GRAMS GIVEN DURING PROCEDURE TO BE ADMINISTERED ONCE CURRENT [place] INF[place] [facility] [place]. CALLED REPORT TO PRESTON HOLLEY. PATIENT TRANSPORTED TO ED VIA STRETCHER @ 1010. PT STABLE, AAO X3 WITH NO C/O PAIN. SPECIMEN SENT TO LAB.
[2020-04-07] MEDS ORDERED: ALBUMIN (HUMAN) 25% 200 ML IV ONE (10:16)
[2020-04-07 15:00] LABS: APPEARANCE BODY FLUID SLIGHTLY CLOUDY (CLEAR); COLOR,BODY FLUID DARK YELLOW (LT YELLOW); SPECIMENTYPE,BODY FLUID ASCITES
[2020-04-07 15:01] LABS: BODY FLUID RBC 125 /cu. mm.; BODY FLUID WBC 99 /cu. mm.; TOTAL VOLUME,BODY FLUID 1200 mL
[2020-04-07 15:15] LABS: BF BASOPHIL 1 %; BF LYMPHOCYTE 18 %; BF MESOTHELIAL 55 %; BF MONOCYTE 2 %
--- NOTE | 2020-04-07 17:29 | NUR ---
CM NOTE MEET WITH PATIENT IN ROOM. PER PATIENT, LIVES ALONE, INDEPENDENT WITH ADLS MOST OF TIME, PROVIDER DAILY TUESDAY THRU TUESDAY, USE OF CANE AND FEELS SAFE TO RETURN HOME ONCE DISCHARGED. SELF PACKETS GIVENS ALONG WITH GOOD RX COUPONS, PATIENT VERBALIZED UNDERSTANDING OF BOTH PACKETS. Addendum: 04/07/20 at 1730 by DERRICK RICHARDSON RN CM Amended: Links added.
[2020-04-07 18:25] VITALS: BP 150/99
[2020-04-07 19:54] VITALS: BP 144/94
[2020-04-07] MEDS: FUROSEMIDE 40 MG TABLET PO SCH (21:40)
[2020-04-07 23:59] VITALS: BP 128/81
[2020-04-08 03:43] VITALS: BP 126/95
[2020-04-08 05:34] LABS: EOSINOPHILS % (AUTO) 2.1 % (0.0-8.0); HEMATOCRIT 34.3 % (42-54); LYMPHOCYTES % (AUTO) 11.5 % (21.0-51.0); MEAN CORPUSCULAR HEMOGLOBIN 29.4 pg (27.0-33.0); MEAN CORPUSCULAR HGB CONC 32.7 g/dL (32.0-36.0); NEUTROPHILS % (AUTO) 71.2 % (40.0-77.0); PLATELET COUNT (AUTO) 199 K/uL (130-400); RED BLOOD CELL COUNT(AUTO) 3.81 MIL/uL (4.50-6.20); RED CELL DISTRIBUTION WIDTH 14.8 % (11.0-15.5); WHITE BLOOD COUNT (AUTO) 4.9 K/uL (4.8-10.8)
[2020-04-08 05:49] LABS: ALBUMIN 2.9 g/dL (3.5-5.0); BILIRUBIN,TOTAL 1.9 mg/dL (0.2-1.0); CREATININE 1.1 mg/dL (0.5-1.5); POTASSIUM 3.4 mmol/L (3.5-5.1); TOTAL PROTEIN, SERUM 7.1 g/dL (6.0-8.3)
[2020-04-08] MEDS: LEVOFLOXACIN 500 MG/D5W 100 ML 100 ML IV SCH (05:57)
[2020-04-08] MEDS: METRONIDAZOLE 500MG/100ML BAG 100 ML IV SCH (07:40)
[2020-04-08 08:21] VITALS: BP 158/69
[2020-04-08] MEDS ORDERED: SPIR25TA6 PO (08:43)
[2020-04-08] MEDS ORDERED: LISI-617 PO (08:43)
[2020-04-08] MEDS ORDERED: FURO40TA5 PO (08:43)
[2020-04-08] MEDS: FAMOTIDINE/PF 20 MG/2 ML VIAL IV SCH (08:58)
[2020-04-08] MEDS: FUROSEMIDE 40 MG TABLET PO SCH (08:59)
[2020-04-08] MEDS: M.V.I. IV [ADULT] 10 ML, FOLIC ACID 1 MG, THIAMINE HCL 100 MG in SODIUM CHLORIDE 0.9% 1... IV SCH (09:00)
[2020-04-08] MEDS ORDERED: POTASSIUM CHLORIDE 20 MEQ ERTAB PO ONE (09:00)
[2020-04-08] MEDS ORDERED: SPIRONOLACTONE 25 MG TAB PO SCH (09:00)
[2020-04-08] MEDS ORDERED: POTASSIUM CHLORIDE 20 MEQ ERTAB PO SCH (09:15)
--- NOTE | 2020-04-08 11:00 | NUR ---
DISCHARGE INSTRUCTIONS GIVEN AND EXPLAINED UTILIZING TEACH BACK METHOD, PT VERBALIZED UNDERSTANDING. PT WAITING FOR HIS RIDE.
--- NOTE | 2020-04-08 13:47 | NUR ---
SUBSTANCE ABUSE Sw was unable to meet with pt before discharge.
== END 2020-04-08 12:20 | disposition home or self-care (01) | DRG 432 ==
LOC: EDH 01:33 → EDHIP 01:34 → 3AH 18:21
PROVIDERS: ADMIT Internal Medicine; ATTEND Internal Medicine
PROC: 0W9G3ZZ Drainage of Peritoneal Cavity, Percutaneous Approach (ICD-10-PCS; principal; 2020-04-07)
DX: K70.31 Alcoholic cirrhosis of liver with ascites (principal); R57.0 Cardiogenic shock; E87.1 Hypo-osmolality and hyponatremia; I50.9 Heart failure, unspecified; I11.0 Hypertensive heart disease with heart failure; F14.10 Cocaine abuse, uncomplicated; F10.129 Alcohol abuse with intoxication, unspecified; E87.6 Hypokalemia; I48.91 Unspecified atrial fibrillation; Z83.3 Family history of diabetes mellitus; Z82.49 Family history of ischemic heart disease and other diseases of the circulatory system; E78.5 Hyperlipidemia, unspecified; Z87.891 Personal history of nicotine dependence; Z60.2 Problems related to living alone; Y90.6 Blood alcohol level of 120-199 mg/100 ml
CPT/HCPCS: 36415; 49083; 71045; 76700; 80053; 80076; 80305; 81001; 82140; 82550; 83605; 83690; 83735; 83874; 84443; 84484; 85025; 85610; 85730; 87040; 87071; 87205; 89051; 93005; G0378; G0480; J1956; J3411; J3490; J7030; P9046

== ENCOUNTER 2020-05-28 05:56 | Inpatient (IN) | payer MEDICARE ==
[2020-05-28] VITALS (10 sets, daily range): BP systolic 92–146; BP diastolic 38–109
[~2020-05-28] VITALS: Ht 170.2 cm; Wt 117.9 kg
[~2020-05-28 05:56] MED LIST changes: -ASPI-556 PO; -DIGO62.52 PO; -GABA-531 PO; -WARF5TAB8 PO
[2020-05-28 06:31] LABS: BASOPHILS % (AUTO) 1.3 % (0.0-5.0); EOSINOPHILS % (AUTO) 3.2 % (0.0-8.0); HEMATOCRIT 34.2 % (42-54); LYMPHOCYTES % (AUTO) 14.9 % (21.0-51.0); MEAN CORPUSCULAR HEMOGLOBIN 29.8 pg (27.0-33.0); MEAN CORPUSCULAR HGB CONC 33.3 g/dL (32.0-36.0); MEAN CORPUSCULAR VOLUME 89.5 fL (79-99); MONOCYTES % (AUTO) 12.2 % (3.0-13.0); NEUTROPHILS % (AUTO) 68.2 % (40.0-77.0); PLATELET COUNT (AUTO) 173 K/uL (130-400); RED BLOOD CELL COUNT(AUTO) 3.82 MIL/uL (4.50-6.20); RED CELL DISTRIBUTION WIDTH 15.5 % (11.0-15.5); WHITE BLOOD COUNT (AUTO) 4.8 K/uL (4.8-10.8)
[2020-05-28 07:02] LABS: CREATININE 0.9 mg/dL (0.5-1.5); POTASSIUM 3.1 mmol/L (3.5-5.1)
[2020-05-28 07:05] LABS: INR 2.75 (0.85-1.15); PARTIAL THROMBOPLASTIN TIME 40.5 SEC (26.3-35.5); PROTHROMBIN TIME 28.6 SEC (9.6-11.6)
[2020-05-28 07:06] LABS: ALBUMIN 3.4 g/dL (3.5-5.0); BILIRUBIN,TOTAL 1.6 mg/dL (0.2-1.0); TOTAL PROTEIN, SERUM 8.7 g/dL (6.0-8.3)
[2020-05-28] MEDS ORDERED: POTASSIUM CHLORIDE 10% ELIXIR 20 MEQ/15 ML UDCUP PO PRN (07:45)
[2020-05-28] MEDS ORDERED: POTASSIUM CHLORIDE 20MEQ/100ML 100 ML IV PRN (07:45)
[2020-05-28] MEDS ORDERED: ONDANSETRON HCL 4 MG/2 ML VIAL IVP PRN (07:45)
[2020-05-28] MEDS ORDERED: LIDOCAINE HCL-MPF 1% 2ML VIAL IV PRN (07:45)
[2020-05-28] MEDS ORDERED: FUROSEMIDE 10 MG/ML 4ML VIAL ONE (08:53)
[2020-05-28] MEDS ORDERED: POTASSIUM CHLORIDE 20MEQ/100ML 100 ML IV ONE (08:53)
[2020-05-28] MEDS: PANTOPRAZOLE 40 MG/VIAL IVP SCH (09:00)
[2020-05-28] MEDS ORDERED: LIDOCAINE HCL-MPF 1% 2ML VIAL ONE (09:18)
[2020-05-28] MEDS ORDERED: ALBUMIN (HUMAN) 25% 200 ML IV ONE (09:46)
[2020-05-28] MEDS ORDERED: LIDOCAINE/PRILOCAINE CREAM 5GM TUBE TP ONE (09:46)
--- NOTE | 2020-05-28 11:00 | NUR ---
U/S GUIDED PARACENTESIS PROCEDURE PERFORMED BY DR. HERNANDEZ. PUNCTURE SITE LEFT UPPER QUADRANT OF ABDOMEN AND PATIENT TOLERATED PROCEDURE WELL. TOTAL REMOVED 8 LITERS OF CLOUDY YELLOW ASCITES FLUID. END OF PROCEDURE AT 1045. CATHETER REMOVED AND DRESSING APPLIED. NO BLEEDING NOTED. ORDERED ALBUMIN 25% 50 GRAMS GIVEN DURING PROCEDURE TO BE ADMINISTERED ONCE CURRENT IV INFUSED PER [facility] [place]. CALLED REPORT TO Radha LU RN. PATIENT TRANSPORTED TO [facility] VIA STRETCHER @ 1100. PT STABLE, AAO X3 WITH NO C/O PAIN. SPECIMEN SENT TO LAB.
[2020-05-28] MEDS ORDERED: WARF5TAB8 PO (12:03)
--- NOTE | 2020-05-28 12:41 | NUR ---
RD NOTIFICATION Pt admitted OBS with Ascites, Liver Cirrhosis, Fluid Overload. Regular diet order in place. S/p Paracentesis. Na 130, K 3.1, Cl 92, BNP 600, Alb 3.4. MISSING HEIGHT AND WEIGHT. Recommend Fluid Restriction 1L fluid per day Recommend Heart Healthy diet modification RD to continue to monitor. Please notify as additional nutrition concerns arise. Thank you.
[2020-05-28 12:55] LABS: APPEARANCE BODY FLUID CLEAR (CLEAR); SPECIMENTYPE,BODY FLUID ASCITES
[2020-05-28] MEDS: POTASSIUM CHLORIDE 20 MEQ ERTAB PO PRN ×3 (12:55→21:03)
[2020-05-28 12:56] LABS: BODY FLUID RBC 313 /cu. mm.; BODY FLUID WBC 125 /cu. mm.; COLOR,BODY FLUID YELLOW (LT YELLOW); TOTAL VOLUME,BODY FLUID 8000 mL
[2020-05-28 13:17] LABS: BF EOSINOPHIL 1 %; BF LYMPHOCYTE 9 %; BF MESOTHELIAL 40 %; BF MONOCYTE 14 %
--- NOTE | 2020-05-28 16:19 | NUR ---
WILL NOTE/IA CALLED PATIENT TO ROOM. PER PATIENT, LIVES ALONE, HAS USE OF CANE, IS INDEPENDENT FOR MOST PART BUT HAS PROVIDER FOR 3HR DAILY AND 3 1/2 HR ON TUESDAY, FAMILY DRIVES TO APPOINTMENTS, AND FEELS SAFE TO RETURN HOME ONCE DISCHARGED FROM HOSPITAL. Addendum: 05/28/20 at 1620 by DERRICK RICHARDSON RN CM Amended: Links added.
[2020-05-28] MEDS ORDERED: THIAMINE HCL 100 MG, FOLIC ACID 1 MG, M.V.I. IV [ADULT] 10 ML in SODIUM CHLORIDE 0.9% 1... IV SCH (19:45)
[2020-05-28] MEDS ORDERED: PHARMACY COMMUNICATION MISC PRN (19:45)
[2020-05-28] MEDS ORDERED: CHLORDIAZEPOXIDE HCL 25 MG CAP PO PRN (19:45)
[2020-05-28] MEDS ORDERED: LORAZEPAM 2 MG/ML 1 ML VIAL IVP PRN (19:45)
[2020-05-28] MEDS: FUROSEMIDE 40 MG TABLET PO SCH (21:02)
[2020-05-28] MEDS: SPIRONOLACTONE 25 MG TAB PO SCH (21:02)
[2020-05-29 04:15] VITALS: BP 110/72
[2020-05-29 06:18] LABS: BASOPHILS % (AUTO) 1.2 % (0.0-5.0); EOSINOPHILS % (AUTO) 2.9 % (0.0-8.0); LYMPHOCYTES % (AUTO) 12.7 % (21.0-51.0); MEAN CORPUSCULAR VOLUME 90.9 fL (79-99); MONOCYTES % (AUTO) 12.7 % (3.0-13.0); NEUTROPHILS % (AUTO) 70.3 % (40.0-77.0); PLATELET COUNT (AUTO) 167 K/uL (130-400); RED BLOOD CELL COUNT(AUTO) 3.63 MIL/uL (4.50-6.20); RED CELL DISTRIBUTION WIDTH 15.6 % (11.0-15.5); WHITE BLOOD COUNT (AUTO) 5.2 K/uL (4.8-10.8)
[2020-05-29 06:42] LABS: ALBUMIN 3.2 g/dL (3.5-5.0); BILIRUBIN,TOTAL 2.5 mg/dL (0.2-1.0); CREATININE 0.9 mg/dL (0.5-1.5); POTASSIUM 3.4 mmol/L (3.5-5.1); TOTAL PROTEIN, SERUM 7.7 g/dL (6.0-8.3)
[2020-05-29 08:00] VITALS: BP 124/98
--- NOTE | 2020-05-29 08:50 | NUR ---
SS referral for Etoh/Substance Use SW met with pt. who is calm, appropriate and cooperative. Pt. reports that he is single/ and resides alone in a rental property. Pt. informed this worker that he has been hospitalized at this facility numerous times and visited by other SW's in the past. Pt. admits to history of etoh use and reports uses cocaine occasionally. Pt. stated that his youngest dtr. a month ago in a MVA and admits to increased drinking of etoh; condolences offered. Pt. stated that he has been in rehab for etoh in [place] several years ago and was sober for 9mos. SW spoke with pt. about seeking assistance again and provided pt. with resources for Substance Use Disorder Services as well as grief counseling; pt. receptive to material provided. Pt. denied any current symptoms of depression, denied thoughts of harm to self or others. Pt. is and has three remaining adult children all of whom reside out of town. Pt. reports numerous siblings within the area. Pt. is disabled, receives 1200./monthly in disability benefits, all utilities reportedly connected in the home. Pt. has provider services 3h/daily. Pt's friend Sascha Guadalupe will provide transportation home at discharge. Pt. verbalized no other SS needs or concerns. Addendum: 05/29/20 at 1028 by GRETCHEN RICHARDSON Amended: Links added.
[2020-05-29] MEDS ORDERED: LISINOPRIL 5 MG TABLET PO SCH (09:00)
[2020-05-29] MEDS: PANTOPRAZOLE 40 MG/VIAL IVP SCH (09:42)
[2020-05-29] MEDS: POTASSIUM CHLORIDE 20 MEQ ERTAB PO PRN (09:43)
[2020-05-29] MEDS: FUROSEMIDE 40 MG TABLET PO SCH (09:43)
[2020-05-29] MEDS: SPIRONOLACTONE 25 MG TAB PO SCH (09:43)
[2020-05-29 11:00] VITALS: BP 120/86
[2020-05-29] MEDS ORDERED: POTASSIUM CHLORIDE 20 MEQ ERTAB PO SCH (12:15)
--- NOTE | 2020-05-29 12:28 | NUR ---
CHART CHECK COMPLETED. Pt IS A 54 Y.O. MALE ADMITTED SECONDARY TO ASCITES, LIVER CIRRHOSIS, FLUID OVERLOAD. Pt HAS A PAST MEDICAL HISTORY SIGNIFICANT FOR AFIB, CHF, UNKNOWN EF, HLD, HTN, LIVER CIRRHOSIS WITH ASCITES, PARACENTESIS, R KNEE SX AND SUBSTANCE ABUSE. Pt CURRENTLY ON REGULAR TEXTURE,THIN LIQUID DIET. PLEASE REQUEST FORMAL SKILLED SPEECH/SWALLOW EVALUATION IF Pt PRESENTS WITH +S/S OF ASPIRATION SUCH COUGH RESPONSE, THROAT CLEAR, OR WET VOCAL QUALITY DURING P.O. Addendum: 05/29/20 at 1230 by EMMANUEL OWENS, [facility] Amended: Links added.
[2020-05-29] MEDS ORDERED: WARFARIN SODIUM 5 MG TAB PO SCH (16:00)
[2020-05-31] MEDS ORDERED: FOLIC ACID 1 MG TABLET PO SCH (09:00)
[2020-05-31] MEDS ORDERED: MULTIVITAMIN TABLET PO SCH (09:00)
[2020-05-31] MEDS ORDERED: THIAMINE HCL 100 MG/ML 2ML VIAL IM SCH (09:00)
== END 2020-05-29 13:25 | disposition home or self-care (01) | DRG 432 ==
LOC: EDH 05:56 → OBSVTOIN 07:28 → EDHIP 07:28 → 3CH 11:12
PROVIDERS: ADMIT Hospitalist; ATTEND Hospitalist
PROC: 0W9G3ZZ Drainage of Peritoneal Cavity, Percutaneous Approach (ICD-10-PCS; principal; 2020-05-28)
DX: K70.31 Alcoholic cirrhosis of liver with ascites (principal); I50.23 Acute on chronic systolic (congestive) heart failure; E87.1 Hypo-osmolality and hyponatremia; I11.0 Hypertensive heart disease with heart failure; F10.10 Alcohol abuse, uncomplicated; I48.91 Unspecified atrial fibrillation; E78.5 Hyperlipidemia, unspecified; E87.6 Hypokalemia; Z87.891 Personal history of nicotine dependence; Z83.3 Family history of diabetes mellitus; Z82.49 Family history of ischemic heart disease and other diseases of the circulatory system
CPT/HCPCS: 36415; 49083; 71045; 80053; 82550; 83880; 84484; 85025; 85610; 85730; 87071; 87205; 89051; 93005; 96365; 99291; C9113; G0378; J1940; J2060; J3411; J3480; J3490; J7030; P9046

== ENCOUNTER 2020-06-19 07:00 | Emergency (ER) | payer MEDICARE ==
[~2020-06-19 07:00] MED LIST changes: -SPIR25TA6 PO; +WARF5TAB8 PO
[2020-06-19 07:29] LABS: BASOPHILS % (AUTO) 1.1 % (0.0-5.0); EOSINOPHILS % (AUTO) 2.8 % (0.0-8.0); HEMATOCRIT 35.4 % (42-54); LYMPHOCYTES % (AUTO) 11.9 % (21.0-51.0); MEAN CORPUSCULAR HEMOGLOBIN 30.4 pg (27.0-33.0); MEAN CORPUSCULAR HGB CONC 33.3 g/dL (32.0-36.0); MEAN CORPUSCULAR VOLUME 91.2 fL (79-99); MONOCYTES % (AUTO) 13.6 % (3.0-13.0); NEUTROPHILS % (AUTO) 70.4 % (40.0-77.0); PLATELET COUNT (AUTO) 194 K/uL (130-400); RED BLOOD CELL COUNT(AUTO) 3.88 MIL/uL (4.50-6.20); RED CELL DISTRIBUTION WIDTH 15.2 % (11.0-15.5); WHITE BLOOD COUNT (AUTO) 5.4 K/uL (4.8-10.8)
[2020-06-19 07:42] LABS: INR 1.27 (0.85-1.15); PARTIAL THROMBOPLASTIN TIME 31.6 SEC (26.3-35.5); PROTHROMBIN TIME 13.6 SEC (9.6-11.6)
[2020-06-19 07:44] LABS: ALBUMIN 3.3 g/dL (3.5-5.0); BILIRUBIN,TOTAL 1.9 mg/dL (0.2-1.0); POTASSIUM 3.3 mmol/L (3.5-5.1); TOTAL PROTEIN, SERUM 9.2 g/dL (6.0-8.3)
[2020-06-19] MEDS ORDERED: ALBUMIN (HUMAN) 25% 200 ML IV ONE (08:30)
--- NOTE | 2020-06-19 10:10 | NUR ---
US GUIDED PARACENTESIS PROCEDURE DONE BY DR HERNANDEZ , PUNCTURE SITE TO RLQ, 12.5 LITERS OF ASHLI YELLOW FLUID REMOVED . PT JUNIOR PROCEDURE WELL. PROCEDURE ENDED AT 1000, CATHETER REMOVED. DRESSING APPLIED. NO BLEEDING NOTED. ALBUMIN 50 GRAMS GIVEN PER PROTOCOL. PIV RESTARTED TO LEFT WRIST . REPORT GIVEN TO ZENIA SNEED RN. PT TRANSFERED BY TO ER ROOM 19,PT DENIED ANY PAIN OR DISCOMFORTS.
--- NOTE | 2020-06-19 10:10 | NUR ---
US GUIDED PARACENTESIS ASCITES FLUID SEND TO LAB
[2020-06-19 12:18] LABS: APPEARANCE BODY FLUID CLEAR (CLEAR); COLOR,BODY FLUID YELLOW (LT YELLOW); SPECIMENTYPE,BODY FLUID ASCITES
[2020-06-19 12:19] LABS: BODY FLUID RBC 174 /cu. mm.; BODY FLUID WBC 120 /cu. mm.
[2020-06-19 12:27] LABS: TOTAL VOLUME,BODY FLUID 12500 mL
[2020-06-19 12:40] LABS: BF LYMPHOCYTE 22 %; BF MESOTHELIAL 56 %; BF MONOCYTE 18 %
== END 2020-06-19 12:17 | disposition home or self-care (01) ==
LOC: EDH 07:00
DX: K70.31 Alcoholic cirrhosis of liver with ascites (principal); E87.70 Fluid overload, unspecified; I48.91 Unspecified atrial fibrillation; I50.9 Heart failure, unspecified; E78.5 Hyperlipidemia, unspecified; I10 Essential (primary) hypertension; Z90.49 Acquired absence of other specified parts of digestive tract
CPT/HCPCS: 36415; 49083; 80053; 85025; 85610; 85730; 87071; 87205; 89051; 96365; 99285; A4215; P9046

== ENCOUNTER 2020-07-17 13:17 | Inpatient (IN) | payer MEDICARE, OTHER ==
[~2020-07-17] VITALS: Ht 170.2 cm; Wt 97.8 kg
[2020-07-17 14:59] LABS: BASOPHILS % (AUTO) 0.9 % (0.0-5.0); EOSINOPHILS % (AUTO) 3.7 % (0.0-8.0); HEMATOCRIT 34.5 % (42-54); LYMPHOCYTES % (AUTO) 7.8 % (21.0-51.0); MEAN CORPUSCULAR HEMOGLOBIN 30.9 pg (27.0-33.0); MEAN CORPUSCULAR HGB CONC 32.8 g/dL (32.0-36.0); MEAN CORPUSCULAR VOLUME 94.3 fL (79-99); MONOCYTES % (AUTO) 13.4 % (3.0-13.0); PLATELET COUNT (AUTO) 223 K/uL (130-400); RED BLOOD CELL COUNT(AUTO) 3.66 MIL/uL (4.50-6.20); RED CELL DISTRIBUTION WIDTH 15.7 % (11.0-15.5); WHITE BLOOD COUNT (AUTO) 5.4 K/uL (4.8-10.8)
[2020-07-17 15:13] LABS: CREATININE 1.2 mg/dL (0.5-1.5); POTASSIUM 3.9 mmol/L (3.5-5.1)
[2020-07-17 15:17] LABS: INR 1.21 (0.85-1.15); PARTIAL THROMBOPLASTIN TIME 28.5 SEC (26.3-35.5)
[2020-07-17 15:18] LABS: ALBUMIN 2.8 g/dL (3.5-5.0); BILIRUBIN,TOTAL 1.2 mg/dL (0.2-1.0)
--- NOTE | 2020-07-17 16:02 | NUR ---
U/S GD PARACENTESIS PROCEDURE PERFORMED BY DR Faraz RIBEIRO. PUNCTURE SITE RUQ AND PATIENT TOLERATED PROCEDURE WELL. TOTAL REMOVED 3.2 LITERS OF CLOUDY YELLOW FLUID. END OF PROCEDURE AT 1545. CATHETER REMOVED AND DRESSING APPLIED. NO BLEEDING NOTED. REPORT GIVEN TO Radha DE LEON RN AND PATIENT TRANSPORTED TO ED 11 VIA STRETHER AT 1555. AAO X3 WITH NO C/O PAIN.
[2020-07-17] MEDS ORDERED: PHARMACY COMMUNICATION MISC SCH (17:00)
[2020-07-17] MEDS: CLINDAMYCIN 600 MG/D5% WATER 50 ML IV SCH (17:00)
[2020-07-17] MEDS ORDERED: LACTULOSE 20 GM/30 ML UDCUP PO PRN (17:00)
[2020-07-17] MEDS ORDERED: PHARMACY COMMUNICATION MISC PRN (17:15)
[2020-07-17] MEDS ORDERED: ONDANSETRON HCL 4 MG/2 ML VIAL IV PRN (17:15)
[2020-07-17 17:30] LABS: ALCOHOL, BLOOD < 3 mg/dL (0-10); PHOSPHORUS 3.9 mg/dL (2.5-4.9)
[2020-07-17] MEDS ORDERED: HYDROXYZINE HCL 50 MG/ML VIAL IM PRN (17:30)
[2020-07-17] MEDS ORDERED: CLINDAMYCIN 600 MG/D5% WATER 50 ML IV ONE (17:31)
[2020-07-17 19:39] LABS: AMPHET/METH SCREEN,URINE NEGATIVE (NEGATIVE); BARBITURATE SCREEN, URINE NEGATIVE (NEGATIVE); BENZODIAZEPINES SCREEN,URINE NEGATIVE (NEGATIVE); CANNABINOID SCREEN,URINE NEGATIVE (NEGATIVE); COCAINE SCREEN,URINE NEGATIVE (NEGATIVE); OPIATE SCREEN,URINE NEGATIVE (NEGATIVE); PHENCYCLIDINE SCREEN,URINE NEGATIVE (NEGATIVE)
[2020-07-17] MEDS: HEPARIN SODIUM 5000UNIT/ML 1ML VIAL SQ SCH (21:00)
[2020-07-17] MEDS: NYSTATIN 15 GM POWDER TP SCH (21:00)
[2020-07-17] MEDS: MUPIROCIN OINTMENT 22 GM TUBE TP SCH (21:00)
[2020-07-17] MEDS: FUROSEMIDE 40 MG TABLET PO SCH (21:00)
[2020-07-17] MEDS ORDERED: HEPARIN SODIUM 5000UNIT/ML 1ML VIAL ONE (22:11)
[2020-07-17] MEDS ORDERED: FUROSEMIDE 10 MG/ML 4ML VIAL ONE (22:12)
[2020-07-17 23:55] VITALS: BP 135/93
[2020-07-18] MEDS: CLINDAMYCIN 600 MG/D5% WATER 50 ML IV SCH ×3 (00:43→16:34)
--- NOTE | 2020-07-18 03:45 | NUR ---
PLACED BACTROBAN OINTMENT ALL OVER PATIENT'S ABDOMEN AND ON HIS BACK. PLACED NYSTOP POWDER ON PATIENT'S SCROTUM AND IN BETWEEN HIS SKIN FOLDS. MEDICATION AT THE BEDSIDE
[2020-07-18 04:00] VITALS: BP 137/95
[2020-07-18 04:39] LABS: BASOPHILS % (AUTO) 1.4 % (0.0-5.0); EOSINOPHILS % (AUTO) 4.3 % (0.0-8.0); HEMATOCRIT 34.9 % (42-54); LYMPHOCYTES % (AUTO) 10.4 % (21.0-51.0); MEAN CORPUSCULAR HEMOGLOBIN 29.7 pg (27.0-33.0); MEAN CORPUSCULAR HGB CONC 31.2 g/dL (32.0-36.0); MEAN CORPUSCULAR VOLUME 95.1 fL (79-99); NEUTROPHILS % (AUTO) 69.7 % (40.0-77.0); PLATELET COUNT (AUTO) 219 K/uL (130-400); RED BLOOD CELL COUNT(AUTO) 3.67 MIL/uL (4.50-6.20); RED CELL DISTRIBUTION WIDTH 15.8 % (11.0-15.5); WHITE BLOOD COUNT (AUTO) 4.2 K/uL (4.8-10.8)
[2020-07-18 04:51] LABS: INR 1.31 (0.85-1.15)
[2020-07-18 04:59] LABS: CARBON DIOXIDE 28 mmol/L (21-32); CHLORIDE 104 mmol/L (101-111); CREATININE 1.2 mg/dL (0.5-1.5); GLOMERULAR FILTR. RATE CALC 67 mL/min (>60); GLUCOSE,RANDOM 91 mg/dL (70-105); POTASSIUM 3.7 mmol/L (3.5-5.1); SODIUM SERUM 138 mmol/L (136-145); UREA NITROGEN, BLOOD 12 mg/dL (7-18)
[2020-07-18] MEDS ORDERED: MAGNESIUM 2GM PREMIX 50ML 50 ML IV ONE (05:53)
[2020-07-18 08:00] VITALS: BP 140/96
[2020-07-18] MEDS: MUPIROCIN OINTMENT 22 GM TUBE TP SCH ×3 (09:00→21:25)
[2020-07-18] MEDS: THIAMINE HCL 100 MG/ML 2ML VIAL IM SCH (09:10)
[2020-07-18] MEDS: FOLIC ACID 1 MG TABLET PO SCH (09:11)
[2020-07-18] MEDS: MULTIVITAMIN TABLET PO SCH (09:11)
[2020-07-18] MEDS: LISINOPRIL 5 MG TABLET PO SCH (09:12)
[2020-07-18] MEDS: FUROSEMIDE 40 MG TABLET PO SCH ×2 (09:12→21:24)
[2020-07-18] MEDS: HEPARIN SODIUM 5000UNIT/ML 1ML VIAL SQ SCH ×3 (09:19→21:25)
[2020-07-18] MEDS: CHLORDIAZEPOXIDE HCL 25 MG CAP PO PRN ×2 (09:56→16:41)
[2020-07-18] MEDS: HYDRALAZINE HCL 20 MG/ML VIAL IV PRN ×2 (10:28→16:35)
[2020-07-18 12:00] VITALS: BP 121/95
[2020-07-18] MEDS: NYSTATIN 15 GM POWDER TP SCH ×3 (12:00→21:25)
--- NOTE | 2020-07-18 15:22 | NUR ---
WILL NOTE/IA UNABLE TO MEET WITH PATIENT, NEXT OF KIN CALLED, DESTINY SOLARES. PER SIBLING, PATIENT LIVES ALONE, IS SEMI INDEPENDENT, HAS USE OF [employer] PROVIDER SERVICES BUT UNSURE OF HOW MANY HRS PER WEEK, NO DME IN USE AND FEELS SAFE FOR PATIENT TO RETURN HOME ONCE DISCHARGED FROM HOSPITAL. Addendum: 07/18/20 at 1523 by DERRICK RICHARDSON RN CM Amended: Links added.
[2020-07-18 16:00] VITALS: BP 117/72
--- NOTE | 2020-07-18 17:00 | NUR ---
LINENS CHANGED complete linen change due to urine in the bed scrotal area edema observed ,penis swollen and skin appears excoriated bright pink in color
[2020-07-18 20:08] VITALS: BP 120/71
[2020-07-19] VITALS (7 sets, daily range): BP systolic 114–139; BP diastolic 73–96
[2020-07-19] MEDS: CLINDAMYCIN 600 MG/D5% WATER 50 ML IV SCH ×3 (00:02→16:44)
[2020-07-19] MEDS: NYSTATIN 15 GM POWDER TP SCH ×3 (09:00→20:20)
[2020-07-19] MEDS: MUPIROCIN OINTMENT 22 GM TUBE TP SCH ×3 (09:00→20:19)
[2020-07-19] MEDS: THIAMINE HCL 100 MG/ML 2ML VIAL IM SCH (09:37)
[2020-07-19] MEDS: FOLIC ACID 1 MG TABLET PO SCH (09:39)
[2020-07-19] MEDS: FUROSEMIDE 40 MG TABLET PO SCH ×2 (09:39→20:18)
[2020-07-19] MEDS: LISINOPRIL 5 MG TABLET PO SCH (09:40)
[2020-07-19] MEDS: HEPARIN SODIUM 5000UNIT/ML 1ML VIAL SQ SCH ×3 (09:44→20:19)
[2020-07-19] MEDS: MULTIVITAMIN TABLET PO SCH (09:48)
[2020-07-19] MEDS: ACETAMINOPHEN 325 MG TAB PO PRN (20:17)
[2020-07-19] MEDS: ACYCLOVIR 800 MG TABLET PO SCH (20:18)
[2020-07-20] MEDS ORDERED: POTASSIUM CHLORIDE 10% ELIXIR 20 MEQ/15 ML UDCUP PO PRN (00:30)
[2020-07-20] MEDS: CLINDAMYCIN 600 MG/D5% WATER 50 ML IV SCH ×2 (00:50→10:53)
[2020-07-20 04:00] VITALS: BP 116/70
[2020-07-20 06:23] LABS: HEMATOCRIT 35.9 % (42-54); MEAN CORPUSCULAR HEMOGLOBIN 30.4 pg (27.0-33.0); MEAN CORPUSCULAR HGB CONC 32.9 g/dL (32.0-36.0); MEAN CORPUSCULAR VOLUME 92.5 fL (79-99); RED BLOOD CELL COUNT(AUTO) 3.88 MIL/uL (4.50-6.20); RED CELL DISTRIBUTION WIDTH 15.4 % (11.0-15.5); WHITE BLOOD COUNT (AUTO) 3.6 K/uL (4.8-10.8)
[2020-07-20 06:31] LABS: CREATININE 1.2 mg/dL (0.5-1.5); POTASSIUM 3.2 mmol/L (3.5-5.1)
[2020-07-20 08:11] VITALS: BP 119/89
[2020-07-20] MEDS: FOLIC ACID 1 MG TABLET PO SCH (10:54)
[2020-07-20] MEDS: MULTIVITAMIN TABLET PO SCH (10:54)
[2020-07-20] MEDS: LISINOPRIL 5 MG TABLET PO SCH (10:55)
[2020-07-20] MEDS: THIAMINE HCL 100 MG TABLET PO SCH (10:58)
[2020-07-20] MEDS: ACYCLOVIR 800 MG TABLET PO SCH (10:59)
[2020-07-20] MEDS: HEPARIN SODIUM 5000UNIT/ML 1ML VIAL SQ SCH ×3 (11:00→20:43)
[2020-07-20] MEDS: FUROSEMIDE 10 MG/ML 10ML VIAL IVP SCH ×2 (11:00→20:39)
--- NOTE | 2020-07-20 11:00 | NUR ---
DR KEVIN consult ..new orders given
[2020-07-20] MEDS: MUPIROCIN OINTMENT 22 GM TUBE TP SCH ×3 (11:01→20:42)
[2020-07-20] MEDS: NYSTATIN 15 GM POWDER TP SCH ×3 (11:01→20:42)
[2020-07-20 12:00] VITALS: BP 120/81
[2020-07-20] MEDS: CLINDAMYCIN HCL 150 MG CAP PO SCH ×2 (15:04→20:39)
[2020-07-20] MEDS: HYDROXYZINE HCL 25 MG TABLET PO PRN (15:07)
[2020-07-20 16:00] VITALS: BP 142/91
--- NOTE | 2020-07-20 16:00 | NUR ---
JESSICA THOMPSON WOUND DOCTOR notified of wound consult will see pt in am
[2020-07-20 20:00] VITALS: BP 118/80
[2020-07-20] MEDS: POTASSIUM CHLORIDE 20 MEQ ERTAB PO PRN ×2 (20:43→22:14)
--- NOTE | 2020-07-20 22:14 | NUR ---
POTASSIUM 3.2 Pt.is already on potassium protocol. Covered potassium in my shift per hospital protocol.
[2020-07-21] VITALS: BP 105/69
[2020-07-21] MEDS ORDERED: CLINDAMYCIN HCL 150 MG CAP PO SCH (03:00)
[2020-07-21 04:00] VITALS: BP 119/78
[2020-07-21 05:47] LABS: ALBUMIN 2.5 g/dL (3.5-5.0); BILIRUBIN,TOTAL 1.1 mg/dL (0.2-1.0); MAGNESIUM 1.5 mg/dL (1.80-2.40); POTASSIUM 3.2 mmol/L (3.5-5.1); TOTAL PROTEIN, SERUM 7.4 g/dL (6.0-8.3)
[2020-07-21] MEDS: MAGNESIUM 2GM PREMIX 50ML 50 ML IV PRN (06:13)
[2020-07-21] MEDS: POTASSIUM CHLORIDE 20 MEQ ERTAB PO PRN ×2 (06:15→11:33)
[2020-07-21] MEDS: ACETAMINOPHEN 325 MG TAB PO PRN ×3 (06:24→20:33)
--- NOTE | 2020-07-21 06:41 | NUR ---
potassium rechecked: 3.2 ; magnesium: 1.50 Electrolytes covered per hospital protocol as ordered.
[2020-07-21 08:00] VITALS: BP 118/74
[2020-07-21 08:29] LABS: BASOPHILS % (AUTO) 1.8 % (0.0-5.0); EOSINOPHILS % (AUTO) 5.9 % (0.0-8.0); HEMATOCRIT 32.8 % (42-54); LYMPHOCYTES % (AUTO) 14.5 % (21.0-51.0); MEAN CORPUSCULAR HEMOGLOBIN 30.3 pg (27.0-33.0); MEAN CORPUSCULAR HGB CONC 32.9 g/dL (32.0-36.0); MEAN CORPUSCULAR VOLUME 92.1 fL (79-99); MONOCYTES % (AUTO) 16.3 % (3.0-13.0); NEUTROPHILS % (AUTO) 61.2 % (40.0-77.0); PLATELET COUNT (AUTO) 245 K/uL (130-400); RED BLOOD CELL COUNT(AUTO) 3.56 MIL/uL (4.50-6.20); RED CELL DISTRIBUTION WIDTH 15.6 % (11.0-15.5); WHITE BLOOD COUNT (AUTO) 3.9 K/uL (4.8-10.8)
[2020-07-21] MEDS: THIAMINE HCL 100 MG TABLET PO SCH (11:23)
[2020-07-21] MEDS: MULTIVITAMIN TABLET PO SCH (11:23)
[2020-07-21] MEDS: FOLIC ACID/VITAMIN B COMP W-C 1 CAP TAB PO SCH (11:23)
[2020-07-21] MEDS: LISINOPRIL 5 MG TABLET PO SCH (11:24)
[2020-07-21] MEDS: CLINDAMYCIN HCL 150 MG CAP PO SCH ×4 (11:29→23:42)
[2020-07-21] MEDS: HEPARIN SODIUM 5000UNIT/ML 1ML VIAL SQ SCH ×3 (11:45→20:24)
[2020-07-21] MEDS: MUPIROCIN OINTMENT 22 GM TUBE TP SCH ×3 (11:47→20:32)
[2020-07-21] MEDS: NYSTATIN 15 GM POWDER TP SCH ×3 (11:47→20:32)
[2020-07-21 12:00] VITALS: BP 119/82
[2020-07-21 16:00] VITALS: BP 124/90
--- NOTE | 2020-07-21 17:08 | NUR ---
SPOKE TO PATIENT AT BEDSIDE RE DC PLANNING CONFIRMED: LIVES ALONE HISTORY ETOH, NOT YET UNDER CONTROL RECENT BEREAVEMENT MULTIPLE HEALTH PROBLEMS SUGGESTED PLACEMENT FOR REHAB/SKIN CARE. STATES WILL THINK ABOUT IT. PT EVAL PENDING, UP IN ROOM W/ WALKER BUT UNSTEADY. HAS ANASACAR TO TESTICLES AND IS EXTREMELY UNCOMFORTABLE
[2020-07-21 20:00] VITALS: BP 128/90
[2020-07-21] MEDS: FUROSEMIDE 10 MG/ML 4ML VIAL IVP SCH (20:32)
[2020-07-22] VITALS: BP 113/70
--- NOTE | 2020-07-22 03:20 | NUR ---
CIWA CIWA score remains 0.
[2020-07-22 04:00] VITALS: BP 130/88
[2020-07-22] MEDS: CLINDAMYCIN HCL 150 MG CAP PO SCH ×4 (05:37→23:11)
[2020-07-22 05:49] LABS: ALBUMIN 2.5 g/dL (3.5-5.0); BILIRUBIN,TOTAL 0.9 mg/dL (0.2-1.0); CREATININE 1.1 mg/dL (0.5-1.5); MAGNESIUM 1.8 mg/dL (1.80-2.40); POTASSIUM 3.5 mmol/L (3.5-5.1); TOTAL PROTEIN, SERUM 7.5 g/dL (6.0-8.3)
[2020-07-22] MEDS: MAGNESIUM 2GM PREMIX 50ML 50 ML IV PRN (06:04)
[2020-07-22] MEDS: POTASSIUM CHLORIDE 20 MEQ ERTAB PO PRN ×2 (06:05→09:30)
[2020-07-22 08:00] VITALS: BP 129/98
[2020-07-22] MEDS: MUPIROCIN OINTMENT 22 GM TUBE TP SCH ×3 (09:28→20:10)
[2020-07-22] MEDS: NYSTATIN 15 GM POWDER TP SCH ×3 (09:28→20:11)
[2020-07-22] MEDS: FUROSEMIDE 10 MG/ML 4ML VIAL IVP SCH ×2 (09:29→20:10)
[2020-07-22] MEDS: LISINOPRIL 5 MG TABLET PO SCH (09:29)
[2020-07-22] MEDS: THIAMINE HCL 100 MG TABLET PO SCH (09:29)
[2020-07-22] MEDS: MULTIVITAMIN TABLET PO SCH (09:29)
[2020-07-22] MEDS: FOLIC ACID/VITAMIN B COMP W-C 1 CAP TAB PO SCH (09:29)
[2020-07-22] MEDS: HEPARIN SODIUM 5000UNIT/ML 1ML VIAL SQ SCH ×3 (09:36→20:04)
--- NOTE | 2020-07-22 11:12 | NUR ---
D/C PLAN- PROBABLY TO HOME UNLIKELY TO MEET CRITERIA FOR SNF SERVICES. WILL NEED HOME HEALTH FOR SKIN/WOUND SURVEILLANCE: DOES NOTHAVE A PMD, WILL HAVE OT ESTABLISH CARE W PMD UPON DISCHARGE
[2020-07-22 11:35] VITALS: BP 126/85
[2020-07-22 16:00] VITALS: BP 107/73
[2020-07-22 20:23] VITALS: BP 124/78
[2020-07-22] MEDS: ACETAMINOPHEN 325 MG TAB PO PRN (20:26)
[2020-07-22 22:07] LABS: APPEARANCE,URINE Clear (CLEAR); BILIRUBIN,URINE Negative (NEGATIVE); COLOR,URINE Yellow (YELLOW); GLUCOSE, URINE (UA) Negative (NEGATIVE); KETONES,URINE Negative (NEGATIVE); LEUKOCYTE ESTERASE ,URINE Negative (NEGATIVE); NITRATE,URINE Negative (NEGATIVE); OCCULT BLOOD,URINE Negative (NEGATIVE); PH,URINE 7.5 (5.0-8.0); PROTEIN,URINE Negative (NEGATIVE); UROBILINOGEN,URINE 0.2 mg/dL (0.2-1.0)
[2020-07-22 22:10] LABS: CREATININE,URINE RANDOM 5 mg/dL (30-135); POTASSIUM,URINE RANDOM 10 mmol/L (25-125); SODIUM,URINE RANDOM 116 mmol/l (40-220)
[2020-07-22] MEDS: CHLORDIAZEPOXIDE HCL 25 MG CAP PO PRN (23:11)
--- NOTE | 2020-07-22 23:11 | NUR ---
CIWA Pt is anxious,medicated with Librium for CIWA score >16
[2020-07-23] VITALS (13 sets, daily range): BP systolic 88–125; BP diastolic 60–84
--- NOTE | 2020-07-23 00:11 | NUR ---
MED EFFECT Pt calm,resting in bed,CIWA 0
[2020-07-23 03:54] LABS: HEMATOCRIT 32.9 % (42-54); MEAN CORPUSCULAR HEMOGLOBIN 29.6 pg (27.0-33.0); MEAN CORPUSCULAR HGB CONC 32.5 g/dL (32.0-36.0); MEAN CORPUSCULAR VOLUME 91.1 fL (79-99); RED BLOOD CELL COUNT(AUTO) 3.61 MIL/uL (4.50-6.20); RED CELL DISTRIBUTION WIDTH 15.5 % (11.0-15.5); WHITE BLOOD COUNT (AUTO) 3.8 K/uL (4.8-10.8)
[2020-07-23 04:05] LABS: INR 1.18 (0.85-1.15); PARTIAL THROMBOPLASTIN TIME 30.8 SEC (26.3-35.5); PROTHROMBIN TIME 12.7 SEC (9.6-11.6)
[2020-07-23 04:16] LABS: ALBUMIN 2.5 g/dL (3.5-5.0); CREATININE 1.1 mg/dL (0.5-1.5); MAGNESIUM 1.7 mg/dL (1.80-2.40); POTASSIUM 3.6 mmol/L (3.5-5.1); TOTAL PROTEIN, SERUM 7.4 g/dL (6.0-8.3)
--- NOTE | 2020-07-23 05:36 | NUR ---
SLEPT Pt sleeping in bed,no distress noted.
[2020-07-23] MEDS: CLINDAMYCIN HCL 150 MG CAP PO SCH ×3 (05:50→18:04)
[2020-07-23] MEDS: POTASSIUM CHLORIDE 20 MEQ ERTAB PO PRN ×3 (05:51→21:39)
--- NOTE | 2020-07-23 08:40 | NUR ---
TELEMETRY UNIT REPORTED CALL [employer] SALES REPRESENTATIVE PATIENT HAD A RUN OF V-TACH WITH 2 SEC PAUSE , REPORTED TO CHENTE BAUM , ORDERS RECEIVED FOR 12 LEAD EKG , PATIENT OFF UNIT FOR PARACENTESIS AT THIS TIME , WILL HAD EKG WHEN RETURNS.
[2020-07-23] MEDS: MUPIROCIN OINTMENT 22 GM TUBE TP SCH ×3 (08:51→21:39)
[2020-07-23] MEDS: FUROSEMIDE 10 MG/ML 4ML VIAL IVP SCH (08:51)
[2020-07-23] MEDS: MULTIVITAMIN TABLET PO SCH (08:51)
[2020-07-23] MEDS: THIAMINE HCL 100 MG TABLET PO SCH (08:51)
[2020-07-23] MEDS: LISINOPRIL 5 MG TABLET PO SCH (08:51)
[2020-07-23] MEDS: FOLIC ACID/VITAMIN B COMP W-C 1 CAP TAB PO SCH (08:51)
[2020-07-23] MEDS: NYSTATIN 15 GM POWDER TP SCH ×3 (08:52→21:39)
[2020-07-23] MEDS: HEPARIN SODIUM 5000UNIT/ML 1ML VIAL SQ SCH ×3 (08:52→21:36)
--- NOTE | 2020-07-23 10:00 | NUR ---
U/S GUIDED PARACENTESIS PROCEDURE PERFORMED BY DR. RICHEY. PUNCTURE SITE LEFT UPPER QUADRANT AND PATIENT TOLERATED PROCEDURE WELL. TOTAL REMOVED 11.3 LITERS OF CLOUDY YELLOW ASCITES FLUID. END OF PROCEDURE AT 1040. CATHETER REMOVED AND DRESSING APPLIED. NO BLEEDING NOTED. ALBUMIN 25% 50 GRAMS ORDERED TO BE GIVEN UPON ARRIVAL TO FLOOR. REPORT GIVEN TO PRESTON HENDERSON AND PATIENT TRANSPORTED TO 325 VIA W/C. AAO X 3 WITH NO C/O PAIN.
[2020-07-23] MEDS: FUROSEMIDE 40 MG TABLET PO SCH ×2 (10:15→21:46)
--- NOTE | 2020-07-23 10:50 | NUR ---
S/PU/S GUIDED PARACENTESIS PROCEDURE PERFORMED BY DR. RICHEY. PUNCTURE SITE LEFT UPPER QUADRANT AND PATIENT TOLERATED PROCEDURE WELL. TOTAL REMOVED 11.3 LITERS OF CLOUDY YELLOW ASCITES FLUID. PATIENT BACK IN ROOM DRESSING INTACT 4X4 WITH OP SITE , VS FOLLOWS:, T98.2, P92, B/P 115/77 R 20 O2SATS 100% ON RA
[2020-07-23] MEDS ORDERED: ALBUMIN (HUMAN) 25% 100 ML IV SCH (14:00)
[2020-07-23] MEDS: MAGNESIUM 2GM PREMIX 50ML 50 ML IV SCH (14:26)
[2020-07-23 15:26] LABS: APPEARANCE BODY FLUID CLEAR (CLEAR); COLOR,BODY FLUID YELLOW (LT YELLOW); SPECIMENTYPE,BODY FLUID ASCITES; TOTAL VOLUME,BODY FLUID 11.3 mL
[2020-07-23 15:27] LABS: BODY FLUID RBC 65 /cu. mm.; BODY FLUID WBC 56 /cu. mm.
[2020-07-23 15:32] LABS: BF LYMPHOCYTE 18 %; BF OTHER CELLS 3
--- NOTE | 2020-07-23 16:55 | NUR ---
CHART REVIEWED. DCP TO HOME....PATIENT NEEDS TO FOLLOW UP TO GET PRIMARY MD-- IN ORDER TO GET HH. WAS ADVISED THAT PERITONEAL FLUID WAS CLOUDY, SENT FOR GRAM STAIN/CULTURE. IF NEEDED IV ABX, PATIENT WOULD BE GOOD CANDIDATE FOR SNF.
[2020-07-23] MEDS: HYDROXYZINE HCL 25 MG TABLET PO PRN (21:38)
[2020-07-23] MEDS: METOPROLOL TARTRATE 25 MG TAB PO SCH (21:38)
[2020-07-24] MEDS: CLINDAMYCIN HCL 150 MG CAP PO SCH ×4 (00:07→16:35)
[2020-07-24 00:13] VITALS: BP 111/64
[2020-07-24 03:53] VITALS: BP 96/61
[2020-07-24 04:50] LABS: BASOPHILS % (AUTO) 1.3 % (0.0-5.0); EOSINOPHILS % (AUTO) 3.6 % (0.0-8.0); HEMATOCRIT 32.6 % (42-54); LYMPHOCYTES % (AUTO) 16.6 % (21.0-51.0); MEAN CORPUSCULAR HEMOGLOBIN 29.6 pg (27.0-33.0); MEAN CORPUSCULAR HGB CONC 32.8 g/dL (32.0-36.0); MEAN CORPUSCULAR VOLUME 90.3 fL (79-99); MONOCYTES % (AUTO) 16.4 % (3.0-13.0); NEUTROPHILS % (AUTO) 61.8 % (40.0-77.0); PLATELET COUNT (AUTO) 215 K/uL (130-400); RED BLOOD CELL COUNT(AUTO) 3.61 MIL/uL (4.50-6.20); RED CELL DISTRIBUTION WIDTH 15.3 % (11.0-15.5); WHITE BLOOD COUNT (AUTO) 3.9 K/uL (4.8-10.8)
[2020-07-24 05:21] LABS: ALBUMIN 2.4 g/dL (3.5-5.0); BILIRUBIN,TOTAL 1.1 mg/dL (0.2-1.0); CREATININE 1.2 mg/dL (0.5-1.5); MAGNESIUM 1.8 mg/dL (1.80-2.40); POTASSIUM 3.8 mmol/L (3.5-5.1)
[2020-07-24 08:00] VITALS: BP 114/67
[2020-07-24] MEDS: HEPARIN SODIUM 5000UNIT/ML 1ML VIAL SQ SCH ×2 (09:00→14:00)
[2020-07-24] MEDS ORDERED: SPIRONOLACTONE 25 MG TAB PO SCH (09:00)
[2020-07-24] MEDS: MULTIVITAMIN TABLET PO SCH (10:51)
[2020-07-24] MEDS: FOLIC ACID/VITAMIN B COMP W-C 1 CAP TAB PO SCH (10:51)
[2020-07-24] MEDS: FUROSEMIDE 40 MG TABLET PO SCH (10:51)
[2020-07-24] MEDS: LISINOPRIL 5 MG TABLET PO SCH (10:52)
[2020-07-24] MEDS: METOPROLOL TARTRATE 25 MG TAB PO SCH (10:52)
[2020-07-24] MEDS: THIAMINE HCL 100 MG TABLET PO SCH (10:52)
[2020-07-24] MEDS: MUPIROCIN OINTMENT 22 GM TUBE TP SCH ×2 (10:53→15:16)
[2020-07-24] MEDS: NYSTATIN 15 GM POWDER TP SCH ×2 (10:53→15:15)
[2020-07-24 11:56] VITALS: BP 113/61
[2020-07-24] MEDS ORDERED: SPIR25TA PO (12:08)
[2020-07-24] MEDS ORDERED: HYDR-3421 PO (12:08)
[2020-07-24] MEDS ORDERED: FURO40TA5 PO (12:08)
[2020-07-24] MEDS ORDERED: CLIN300C3 PO (12:55)
[2020-07-24] MEDS: MAGNESIUM 2GM PREMIX 50ML 50 ML IV SCH (15:17)
--- NOTE | 2020-07-24 16:36 | NUR ---
PATIENT GIVEN DISCHARGE INSTRUCTIONS AND VERBALIZED UNDERSTANDING, , INSTRUCTED ON MEDICATIONS, FOLLOW-UP APPOINTMENT and if sx get woast sob, chest pain ect to come to the er, PATIENT CALL FOR RIDE AND WAS TAKEN DOWN TO MET RODRIGUEZ IN LOBBY VIA WHEELCHAIR.DENIES PAIN AT THIS TIME NO QUESTION OF CONCERNS VOICED
== END 2020-07-24 16:40 | disposition home or self-care (01) | DRG 432 ==
LOC: EDH 13:17 → EDHIP 17:00 → OBSVTOIN 17:00 → 3DH 23:35
PROVIDERS: ADMIT Internal Medicine; ATTEND Internal Medicine
PROC: 0W9G3ZZ Drainage of Peritoneal Cavity, Percutaneous Approach (ICD-10-PCS; principal; 2020-07-17)
PROC: 0W9G3ZZ Drainage of Peritoneal Cavity, Percutaneous Approach (ICD-10-PCS; 2020-07-23)
DX: K70.31 Alcoholic cirrhosis of liver with ascites (principal); I50.21 Acute systolic (congestive) heart failure; J96.91 Respiratory failure, unspecified with hypoxia; L03.115 Cellulitis of right lower limb; L97.119 Non-pressure chronic ulcer of right thigh with unspecified severity; I11.0 Hypertensive heart disease with heart failure; I48.91 Unspecified atrial fibrillation; E78.5 Hyperlipidemia, unspecified; N49.2 Inflammatory disorders of scrotum; E87.6 Hypokalemia; E83.42 Hypomagnesemia; L02.92 Furuncle, unspecified; E66.01 Morbid (severe) obesity due to excess calories; D64.9 Anemia, unspecified; R53.81 Other malaise; L40.3 Pustulosis palmaris et plantaris; S70.211A Abrasion, right hip, initial encounter; X58.XXXA Exposure to other specified factors, initial encounter; F10.10 Alcohol abuse, uncomplicated; Z86.718 Personal history of other venous thrombosis and embolism; Z91.19 Patient's noncompliance with other medical treatment and regimen; Z83.3 Family history of diabetes mellitus; Z82.49 Family history of ischemic heart disease and other diseases of the circulatory system; Z79.01 Long term (current) use of anticoagulants; Z68.33 Body mass index [BMI] 33.0-33.9, adult; Z90.49 Acquired absence of other specified parts of digestive tract; Y93.89 Activity, other specified; Y92.89 Other specified places as the place of occurrence of the external cause; Y99.8 Other external cause status
CPT/HCPCS: 36415; 49083; 71045; 80048; 80053; 80305; 81003; 82570; 83605; 83735; 83880; 83935; 84100; 84133; 84145; 84300; 85025; 85027; 85610; 85730; 87040; 87071; 87205; 89051; 93005; 97039; G0378; J0360; J1644; J1940; J3411; J3475; J3490; P9046

== ENCOUNTER 2020-08-19 23:08 | Observation (INO) | payer OTHER ==
[~2020-08-19 23:08] MED LIST changes: +CLIN300C3 PO; +HYDR-3421 PO; +SPIR25TA PO
[2020-08-19 23:40] LABS: BASOPHILS % (AUTO) 1.6 % (0.0-5.0); EOSINOPHILS % (AUTO) 2.5 % (0.0-8.0); HEMATOCRIT 35.1 % (42-54); LYMPHOCYTES % (AUTO) 21.5 % (21.0-51.0); MEAN CORPUSCULAR HEMOGLOBIN 30.1 pg (27.0-33.0); MEAN CORPUSCULAR HGB CONC 33.9 g/dL (32.0-36.0); MEAN CORPUSCULAR VOLUME 88.9 fL (79-99); MONOCYTES % (AUTO) 13.3 % (3.0-13.0); NEUTROPHILS % (AUTO) 60.9 % (40.0-77.0); PLATELET COUNT (AUTO) 182 K/uL (130-400); RED BLOOD CELL COUNT(AUTO) 3.95 MIL/uL (4.50-6.20); RED CELL DISTRIBUTION WIDTH 15.7 % (11.0-15.5); WHITE BLOOD COUNT (AUTO) 4.4 K/uL (4.8-10.8)
[2020-08-19 23:42] LABS: CREATININE 0.8 mg/dL (0.5-1.5); POTASSIUM 3.5 mmol/L (3.5-5.1)
[2020-08-19 23:46] LABS: INR 1.14 (0.85-1.15); PARTIAL THROMBOPLASTIN TIME 29.4 SEC (26.3-35.5); PROTHROMBIN TIME 12.3 SEC (9.6-11.6)
[2020-08-19 23:48] LABS: ALBUMIN 3.1 g/dL (3.5-5.0); BILIRUBIN,TOTAL 1.1 mg/dL (0.2-1.0); TOTAL PROTEIN, SERUM 8.9 g/dL (6.0-8.3)
[2020-08-20 00:15] LABS: B-TYPE NATRIURETIC PEPTIDE 520 pg/mL (0-100)
[2020-08-20] MEDS ORDERED: LORAZEPAM 2 MG/ML 1 ML VIAL IVP PRN (02:00)
[2020-08-20] MEDS ORDERED: CHLORDIAZEPOXIDE HCL 25 MG CAP PO ONE (02:00)
[2020-08-20] MEDS ORDERED: ONDANSETRON HCL 4 MG/2 ML VIAL IV PRN (02:00)
[2020-08-20] MEDS ORDERED: CHLORDIAZEPOXIDE HCL 25 MG CAP ONE (02:05)
[2020-08-20] MEDS ORDERED: NITROGLYCERIN 1GM/1 INCH PACKET TD SCH (02:45)
[2020-08-20] MEDS ORDERED: MORPHINE SULFATE 2 MG/ML 1ML SYG IVP PRN (02:45)
[2020-08-20] MEDS ORDERED: NITROGLYCERIN 1GM/1 INCH PACKET TD ONE ×2 (02:49→10:50)
[2020-08-20] MEDS ORDERED: FUROSEMIDE 10 MG/ML 2ML VIAL IV SCH (03:15)
[2020-08-20] MEDS ORDERED: HEPARIN SODIUM 5000UNIT/ML 1ML VIAL SQ SCH (03:30)
[2020-08-20] MEDS ORDERED: HEPARIN SODIUM 5000UNIT/ML 1ML VIAL ONE (04:27)
[2020-08-20 04:57] LABS: BASOPHILS % (AUTO) 1.4 % (0.0-5.0); EOSINOPHILS % (AUTO) 2.1 % (0.0-8.0); HEMATOCRIT 33.3 % (42-54); LYMPHOCYTES % (AUTO) 18.1 % (21.0-51.0); MEAN CORPUSCULAR HEMOGLOBIN 29.7 pg (27.0-33.0); MEAN CORPUSCULAR HGB CONC 33.3 g/dL (32.0-36.0); MONOCYTES % (AUTO) 13.1 % (3.0-13.0); NEUTROPHILS % (AUTO) 65.1 % (40.0-77.0); PLATELET COUNT (AUTO) 183 K/uL (130-400); RED BLOOD CELL COUNT(AUTO) 3.74 MIL/uL (4.50-6.20); RED CELL DISTRIBUTION WIDTH 15.7 % (11.0-15.5); WHITE BLOOD COUNT (AUTO) 4.2 K/uL (4.8-10.8)
[2020-08-20] MEDS ORDERED: FUROSEMIDE 10 MG/ML 2ML VIAL ONE ×2 (05:25→10:49)
[2020-08-20 05:26] LABS: ALANINE AMINOTRANSFERASE 21 U/L (12-78); ASPARTATE AMINOTRANSFERASE 42 U/L (10-37); BILIRUBIN,DIRECT 0.6 mg/dL (0.0-0.3); BILIRUBIN,TOTAL 1.4 mg/dL (0.2-1.0); CARBON DIOXIDE 27 mmol/L (21-32); CHLORIDE 96 mmol/L (101-111); CREATINE KINASE, TOTAL 102 U/L (21-232); CREATININE 0.8 mg/dL (0.5-1.5); GLOMERULAR FILTR. RATE CALC 107 mL/min (>60); GLUCOSE,RANDOM 87 mg/dL (70-105); MYOGLOBIN 50 ng/mL (10-92); POTASSIUM 3.3 mmol/L (3.5-5.1); SODIUM SERUM 132 mmol/L (136-145); TOTAL PROTEIN, SERUM 8.5 g/dL (6.0-8.3); TROPONIN I < 0.04 ng/mL (0.00-0.06); UREA NITROGEN, BLOOD 6 mg/dL (7-18)
[2020-08-20] MEDS ORDERED: METOPROLOL TARTRATE 25 MG TAB PO SCH (09:00)
[2020-08-20] MEDS ORDERED: THIAMINE HCL 100 MG TABLET PO SCH (09:00)
[2020-08-20] MEDS ORDERED: Vitamin B Complex/Vit C/Folic Acid PO SCH (09:00)
[2020-08-20] MEDS ORDERED: Vitamin B Complex/Vit C/Folic Acid ONE (10:49)
[2020-08-20] MEDS ORDERED: THIAMINE HCL 100 MG TABLET ONE (10:50)
[2020-08-20] MEDS ORDERED: METOPROLOL TARTRATE 25 MG TAB ONE (10:51)
[2020-08-20] MEDS ORDERED: ALBUMIN (HUMAN) 25% 200 ML IV ONE (13:14)
--- NOTE | 2020-08-20 13:40 | NUR ---
U/S GUIDED PARACENTESIS PROCEDURE PERFORMED BY DR. LOUIS PUNCTURE SITE LEFT LOWER QUADRANT AND PATIENT TOLERATED PROCEDURE WELL. TOTAL REMOVED 10.0 LITERS OF YELLOW CLOUDY ASCITES FLUID. END OF PROCEDURE AT 1450 CATHETER REMOVED AND DRESSING APPLIED. NO BLEEDING NOTED. ALBUMIN 25% 50 GRAMS GIVEN IV PER ALBUMIN PROTOCOL. REPORT GIVEN TO PRESTON GARCIA AND PATIENT TRANSPORTED TO ED VIA STRETCHER. PT STABLE, AAO X 3 WITH NO C/O PAIN.
--- NOTE | 2020-08-20 16:46 | NUR ---
IA unable to be completed. None of the contacts listed answering. CM to follow up.
[2020-08-20 18:09] LABS: SPECIMENTYPE,BODY FLUID ASCITES
[2020-08-20 18:10] LABS: APPEARANCE BODY FLUID CLEAR (CLEAR); COLOR,BODY FLUID YELLOW (LT YELLOW); TOTAL VOLUME,BODY FLUID 10000 mL
[2020-08-20 18:11] LABS: BODY FLUID WBC 90 /cu. mm.
[2020-08-20 18:12] LABS: BODY FLUID RBC 1101 /cu. mm.
[2020-08-20 19:18] LABS: BF LYMPHOCYTE 31 %; BF MONOCYTE 1 %; BF OTHER CELLS 4
[2020-08-21] MEDS ORDERED: SPIRONOLACTONE 25 MG TAB PO SCH (09:00)
[2020-08-21] MEDS ORDERED: LISINOPRIL 5 MG TABLET PO SCH (09:00)
== END 2020-08-20 18:09 | disposition left against medical advice (07) ==
LOC: EDH 23:08 → INTOOBSV 08-20 01:52 → EDHIP 08-20 01:52
PROVIDERS: ADMIT Internal Medicine; ATTEND Internal Medicine
DX: K70.31 Alcoholic cirrhosis of liver with ascites (principal); Z20.828 Contact with and (suspected) exposure to other viral communicable diseases; R07.89 Other chest pain; E87.1 Hypo-osmolality and hyponatremia; E80.6 Other disorders of bilirubin metabolism; I11.0 Hypertensive heart disease with heart failure; I50.20 Unspecified systolic (congestive) heart failure; E78.5 Hyperlipidemia, unspecified; F10.10 Alcohol abuse, uncomplicated; I48.91 Unspecified atrial fibrillation; I20.9 Angina pectoris, unspecified; Z87.891 Personal history of nicotine dependence; Z90.49 Acquired absence of other specified parts of digestive tract; Z79.01 Long term (current) use of anticoagulants; Z79.899 Other long term (current) drug therapy
CPT/HCPCS: 36415 ×2; 49083; 71045; 80053 ×2; 82248; 82550 ×2; 83690; 83874; 83880; 84157; 84484 ×3; 85025 ×2; 85610; 85730; 87071; 87205; 87426; 89051; 93005; 99285; A4215; G0378 ×12; J1644; J1940 ×2; P9046; U0003; 96365